=== PATIENT | female | born 1935 | race Caucasian/White ===

== ENCOUNTER 2017-03-26 16:25 | Observation (INO) ==
[2017-03-26] MEDS ORDERED: *HR* FentaNYL (PF) 100 MCG/2 ML VIAL IVP ONE ×2 (16:36→17:41)
[2017-03-26] MEDS ORDERED: Ondansetron 4 MG/2 ML VIAL IVP ONE (16:36)
--- NOTE | 2017-03-26 16:41 | Emergency Department Note ---
Disposition Clinical Impression: Acute right ankle pain Closed left humeral fracture Qualifiers: Encounter type: initial encounter Humerus Location: shaft Fracture morphology: unspecified fracture morphology Qualified Code(s): S42.302A - Unspecified fracture of shaft of humerus, left arm, initial encounter for closed fracture Fall down steps Qualifiers: Encounter type: initial encounter Qualified Code(s): W10.8XXA - Fall (on) (from ) other stairs and steps, initial encounter Disposition: Admitted As Inpatient Condition: Undetermined Referrals: Garcia Thakkar Jr, MD [Primary Care Provider] - Forms: ED Satisfaction Letter Time of Disposition: 18:21 Trauma HPI - General Chief Complaint: ED Extremity Injury, Upper Stated Complaint: Fall, shoulder neck pain Time Seen by Provider: 03/26/17 16:27 Source: patient, EMS Mode of arrival: EMS Limitations: no limitations Nursing Notes Reviewed: Yes Vital Signs Reviewed: Yes - History of Present Illness HPI Narrative: 81-year-old female who was climbing steps fell down 4 steps without loss of consciousness. The patient arrives to the emergency department with a obvious deformity to her left humerus. The patient has a history of shoulder replacement in the left shoulder. The patient is admitting to multisystem complaints including headache, neck pain, back pain, left upper extremity pain, left knee pain, pelvic pain, right ankle pain. The patient is complaining of pain only primarily in her left upper extremity. The patient does admit to blood thinners but is unsure what type. Patient denies any other complaints at this time. She is not tachypneic, not tachycardic, no obvious distress with the exception of pain. The patient arrived to the emergency department in a c- collar. Her left upper extremity was propped up but not immobilized by EMS. Upon arrival to the emergency department EMS notified of the patient received IV fluids, 4 mg of IV Zofran, 10 mg of IV morphine. Patient still complaining of left upper extremity pain. 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 Loss of Consciousness: no Location of injury: neck, abdomen, pelvis Location - Extremities: Left: arm, hip, knee, Right: ankle Pain Severity: severe Pain Scale: 9 Context: fall Associated symptoms: Reports: back pain Treatments prior to arrival: IV, cervical collar - Related Data Home Medications Medication Instructions Recorded Confirmed Aspirin [Adult Low Dose Aspirin EC] 81 mg PO QPM 05/12/15 12/01/16 Clopidogrel [Plavix] 75 mg PO DAILY 05/12/15 12/01/16 Metoprolol [Lopressor] 25 mg PO BID 05/12/15 12/01/16 Nitroglycerin [Nitrostat] 0.4 mg SL Q5M PRN 05/12/15 12/01/16 Simvastatin [Zocor] 40 mg PO QPM 05/12/15 12/01/16 amLODIPine [Norvasc] 2.5 mg PO QAM 05/12/15 12/01/16 Levothyroxine [Synthroid] 50 mcg PO QAM 08/28/15 12/01/16 Furosemide [Lasix] 20 mg PO DAILY 05/06/16 12/01/16 Isosorbide MONOnitrate [Isosorbide 120 mg PO DAILY 05/06/16 12/01/16 Mononitrate ER] Amitriptyline [Elavil] 12.5 - 25 mg PO HS 12/01/16 12/01/16 Omeprazole [PriLOSEC] 20 mg PO DAILY 12/01/16 12/01/16 Oxycodone HCl/Acetaminophen 1 tab PO Q4-6H PRN 12/01/16 12/01/16 [Percocet 7.5-325 mg Tablet] Previous Rx's Medication Instructions Recorded Oxycodone HCl/Acetaminophen 1 each PO Q6HR #20 tablet 12/01/16 [Percocet 7.5-325 mg Tablet] Amoxicillin/Clavulanate [Augmentin] 875 mg PO BID #14 tablet 12/07/16 Allergies Allergy/AdvReac Type Severity Reaction Status Date / Time esomeprazole [From Nexium] AdvReac Chest Pain Verified 05/06/16 15:53 Hydromorphone [From Dilaudid] AdvReac Vomiting Verified 05/06/16 15:53 iron AdvReac Vomiting Verified 05/06/16 15:53 All systems ED: reviewed and negative except as stated. Constitutional: Denies: fever, chills, weakness Eyes: Denies: eye pain, vision change ENT ED: Denies: dental pain, congestion, dysphagia Cardiovascular: Denies: chest pain, dyspnea on exertion, orthopnea Respiratory: Denies: cough, dyspnea, wheezes Gastrointestinal: Reports: abdominal pain. Denies: nausea, vomiting, diarrhea, constipation Genitourinary: Denies: dysuria Musculoskeletal: Reports: back pain, neck pain, arthralgia. Denies: myalgia Integumentary: Denies: rash Neurological: Reports: numbness (Left upper extremity). Denies: headache, weakness, paresthesias, confusion Past Medical History - Past Medical History Attestation: Yes The following information was validated with the patient. 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 - Social History Smoking Status: Never smoker Smokeless Tobacco Status: No Alcohol use: Reports: none Drug use: Reports: none Physical Exam - General Limitations: no limitations General appearance: alert, in distress (Due to pain) - Head Head exam: atraumatic, normocephalic, normal inspection - Eye Eye exam: Present: normal appearance, PERRL, EOMI - ENT ENT exam: normal exam, normal oropharynx, mucous membranes moist - Neck Neck exam: Present: normal inspection, trachea midline, tenderness (Posterior cervical spine) - Chest Chest inspection: Present: normal inspection, symmetric chest wall rise - Respiratory Respiratory exam: Present: normal lung sounds bilaterally - Cardiovascular Cardiovascular exam: Present: regular rate, normal rhythm, normal heart sounds - Abdominal Exam Abdominal exam: Present: soft, tenderness (Diffuse, mild). Absent: distention, guarding, rebound, rigidity Abdominal tenderness: Present: diffuse, mild - Extremities Exam Extremities exam: Present: other (The patient has an obvious left upper extremity deformity with hematoma. This is located in the left humerus. The patient has palpable pulses to the left upper extremity but decreased sensation of left upper extremity when compared to the right. The patient has tenderness to the left hip without obvious deformity, left knee without obvious deformity and right ankle without obvious deformity. The patient is neurovascularly intact throughout all extremities at this time.) - Back Exam Back exam: Present: tenderness - Neurological Exam Neurological exam: Present: alert, oriented X3 Course - Consultations Consultation #1: I spoke with Dr. Rawls in orthopedics surgery who agreed that he will be consulted the patient. We did discussion as though the patient's pain is not well controlled enough for the patient to be discharged home at this time. He agreed and stated that he would consult the patient in to admit the patient to the hospitalist service. We will admit the patient to the hospitalist service at this time. Time: 18:05 Vital Signs Temperature 98.2 F 03/26/17 16:27 Pulse Rate 86 03/26/17 16:27 Respiratory Rate 18 03/26/17 16:27 Blood Pressure 184/96 03/26/17 16:27 O2 Sat by Pulse Oximetry 98 03/26/17 16:27 Temperature 98.2 F 03/26/17 16:27 Pulse Rate 75 03/26/17 18:10 Respiratory Rate 18 03/26/17 18:10 Blood Pressure 172/76 03/26/17 18:10 O2 Sat by Pulse Oximetry 99 03/26/17 18:10 Oxygen Delivery Oxygen Delivery Nasal Cannula Trauma - MDM Narrative Medical decision making narrative: Patient's workup here in the emergency department demonstrates only a left humerus fracture. The patient's CT scans demonstrated no other acute findings. The patient's x-ray of the right ankle does demonstrate some soft tissue swelling but no other acute osseous fracture or injury. We will admit the patient to the hospitalist service per request from Dr. Rawls orthopedic surgery. A consult was officially placed. The patient was accepted by the hospitalist, Dr. Parker. - Medical Records Medical records reviewed: Yes I reviewed the patient's medical records. - Radiology Data Radiology results reviewed: Yes I reviewed the patient's radiology results.
--- NOTE | 2017-03-26 16:58 | Emergency Department Note ---
START Narrative - START START: I examined this patient and my medical decision-making was reviewed with the Resident Physician. I agree with the documented findings, disposition and treatment plan as described except to the extent set forth below. 81 yo F who fell today injuring left shoulder with + left shoulder deformity. on blood thinners having diffuse pain in legs, abdomen. will do ct head, neck, abd pelvis and CTLS spine plain films of left shoulder, cxr, knee films if any significant pathology, then will need to be tx'd to [facility]. pt has doppler pulses on left UE. critical care time spent 35 min spent in medical management of trauma, left arm deformity.
[2017-03-26 18:25] LABS: Basophils % 0.3 %; Eosinophils # 0.1 K/mcL (0.0-0.6); Hematocrit 36.1 % (35.3-44.9); Hemoglobin 11.4 g/dL (11.5-15.4); Immature Granulocytes % 0.5 % (0-4); Lymphocytes # 0.7 K/mcL (0.6-4.6); Lymphocytes % 11.6 %; Mean Corpuscular HGB Conc 31.6 g/dL (31.6-35.5); Mean Corpuscular Hemoglobin 27.8 pg (28.0-33.3); Mean Platelet Volume 8.6 fL (9.4-12.4); Monocytes # 0.4 K/mcL (0.0-1.3); Monocytes % 6.2 %; Neutrophils # 5.1 K/mcL (1.6-8.9); Platelet Count 207 K/mcL (140-400); Red Cell Distribution Width 13.3 % (11.5-14.5); Segmented Neutrophils % 80.4 %
[2017-03-26 18:38] LABS: Calcium 8.8 mg/dL (8.6-10.8); Potassium 3.8 mEq/L (3.5-4.5)
[2017-03-26] MEDS ORDERED: Acetaminophen 325 MG TABLET PO PRN (21:06)
[2017-03-26] MEDS ORDERED: Naloxone 0.4 MG/ML INJ IVP PRN (21:06)
[2017-03-26] MEDS ORDERED: Ondansetron 4 MG/2 ML VIAL IVP PRN (21:06)
--- NOTE | 2017-03-26 21:22 | Internal Med History&Physical ---
Date of Encounter: 03/26/17 Time of Encounter: 19:30 Assessment and Plan (1) Closed left humeral fracture Current visit: Yes Status: Acute Acute fracture of the left humerus today sustained when pt. fell from the top of four steps. XR of the humerus today shows angulated fracture of the left humeral shaft with slight overlap of fracture fragments. Orthopedic surgery consultation. Stair-step pain medications for pain management. Patient kept nothing by mouth at midnight for possible surgical intervention in the a.m. Falls/safety precautions. PT/OT consults ordered for post-discharge planning. Pt. is at high risk for further injury and morbidity based on current fracture, sx, hx of falls, and risk factors. Inpatient. Qualifiers: Encounter type: initial encounter Humerus Location: shaft Fracture morphology: unspecified fracture morphology Qualified Code(s): S42.302A - Unspecified fracture of shaft of humerus, left arm, initial encounter for closed fracture (2) Falls Current visit: Yes Status: Acute Hx of falls. Falls/safety precautions. Qualifiers: Encounter type: initial encounter Qualified Code(s): W19.XXXA - Unspecified fall, initial encounter (3) CAD (coronary artery disease) Current visit: Yes Status: Chronic Hx of chronic CAD with previous [place] requiring Ensure Plus 10 stent placement 1. Tenuous cardiac telemetry. Will continue patient's Lopressor, Norvasc, isosorbide, Plavix, aspirin therapy, and Zocor. Qualifiers: Coronary Disease-Associated Artery/Lesion type: [place] artery [place] vs. transplanted heart: [place] heart Associated angina: without angina Qualified Code(s): I25.10 - Atherosclerotic heart disease of [place] coronary artery without angina pectoris (4) HTN (hypertension) Current visit: Yes Status: Chronic Hx of chronic HTN. Monitor pt. and VS. continue patient's Lopressor, Norvasc, and isosorbide. Qualifiers: Hypertension type: essential hypertension Qualified Code(s): I10 - Essential (primary) hypertension (5) HLD (hyperlipidemia) Current visit: Yes Status: Chronic Hx of chronic HLD. Lipid panel in a.m. labs. Continue Zocor. Qualifiers: Hyperlipidemia type: pure hypercholesterolemia Qualified Code(s): E78.00 - Pure hypercholesterolemia, unspecified; E78.0 - Pure hypercholesterolemia (6) Hypothyroidism Current visit: Yes Status: Chronic Hx of chronic hypothyroidism. Continue patient's Synthroid. Qualifiers: Hypothyroidism type: acquired Qualified Code(s): E03.9 - Hypothyroidism, unspecified (7) Abdominal pain Current visit: Yes Status: Chronic Hx of chronic abdominal pain r/t GERD. IVP Zofran Q8 PRN for nausea. IVP Protonix 40 mg daily. Qualifiers: Abdominal location: generalized Qualified Code(s): R10.84 - Generalized abdominal pain (8) DVT prophylaxis Current visit: Yes Status: Acute Bilateral SCDs on LEs for DVT prophylaxis d/t patient's reports of black stool today. Fecal hemoccult ordered. Monitor pt. for signs of bleeding. Internal Medicine - H&P: HPI Chief complaint: Fracture of the left humerus Admitted From: Emergency Dept Plans for Post Hospital Care: Home History of present illness: Ms. Hall is a 81 year old female with medical history of nocturnal seizures , GERD, hypertension, hyperlipidemia, hiatal hernia, and [place] requiring angioplasty and stent placement 1 presents from the ED with chief complaint of humerus fracture of the left arm today. Pt. states she fell from the top of four steps when she lost her balance and did not lose consciousness or hit her head. Patient reports history of shoulder placement of left shoulder. Patient also hurt multiple portions on her body during the fall but imaging shows no other fractures. Pt. states she had black stool this morning and reports taking Pepto Bismol last night. Denies previous blood in stool. Patient reports pain in left upper extremity and abdominal pain r/t GERD but denies chest pain, palpitations, recent illness, fever, chills, nausea, vomiting, diarrhea, constipation, abdominal pain, changes in vision, numbness, tingling, headache, dizziness, lightheadedness, pre-syncope, or syncope. 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), sinus surgery, other - Social History Smoking Status: Never smoker Smokeless Tobacco Status: No Alcohol use: none Drug use: none Current living situation: Home Activity Level: Independent ambulation Recent Out of Country Travel Within the Last 8 Weeks: No Exposure or Possible Exposure to Illness During Travel: No - Family History Father Adopted: [place]: Lazarus Dent Age: 70 Race: Family Member Ethnicity: Non- Living Status: Age at : 70 Cause of : Parkinson's disease Hx Family Neurologic Disorders: Yes (Parkinson's disease) Mother Adopted: [place]: Salome Penaloza Age: 72 Race: Family Member Ethnicity: Non- Living Status: Age at : 72 Cause of : Stroke Hx Family Cardiac Disorders: Yes (CAD, HTN, CVA, [place]) Brother Race: Family Member Ethnicity: Non- Living Status: Age at : 39 Cause of : [place] Hx Family Cardiac Disorders: Yes ([place], CVA) Sister Race: Family Member Ethnicity: Non- Living Status: Age at : 60 Cause of : CVA Hx Family Cardiac Disorders: Yes (CVA, CAD, HTN) Hx Family Genitourinary Disorders: Yes (CKD) Internal Medicine - H&P: Meds Aspirin [Adult Low Dose Aspirin EC] 81 mg PO QPM 05/12/15 [History] Clopidogrel [Plavix] 75 mg PO DAILY 05/12/15 [History] Metoprolol [Lopressor] 25 mg PO BID 05/12/15 [History] Nitroglycerin [Nitrostat] 0.4 mg SL Q5M PRN 05/12/15 [History] Simvastatin [Zocor] 40 mg PO QPM 05/12/15 [History] amLODIPine [Norvasc] 2.5 mg PO QAM 05/12/15 [History] Levothyroxine [Synthroid] 50 mcg PO QAM 08/28/15 [History] Furosemide [Lasix] 20 mg PO DAILY 05/06/16 [History] Isosorbide MONOnitrate [Isosorbide Mononitrate ER] 120 mg PO DAILY 05/06/16 [ History] Amitriptyline [Elavil] 12.5 - 25 mg PO HS 12/01/16 [History] Omeprazole [PriLOSEC] 20 mg PO DAILY 12/01/16 [History] Oxycodone HCl/Acetaminophen [Percocet 7.5-325 mg Tablet] 1 each PO Q6HR #20 tablet 12/01/16 [Rx] Oxycodone HCl/Acetaminophen [Percocet 7.5-325 mg Tablet] 1 tab PO Q4-6H PRN [History] Amoxicillin/Clavulanate [Augmentin] 875 mg PO BID #14 tablet 12/07/16 [Rx] 3 Allergy/AdvReac Type Severity Reaction Status Date / Time esomeprazole [From Nexium] AdvReac Chest Pain Verified 05/06/16 15:53 Hydromorphone [From Dilaudid] AdvReac Vomiting Verified 05/06/16 15:53 iron AdvReac Vomiting Verified 05/06/16 15:53 All Systems PM: A 10-system review of systems was performed and is negative for pertinent findings except as documented above in the HPI. - Constitutional Constitutional: as per HPI, falls, no chills, no fever(s), no night sweats - EENT Eyes: no change in vision, no discharge, no pain, no photophobia Ears: no ear discharge, no ear pain, no tinnitus Nose, mouth and throat: no dysphagia, no nasal discharge, no neck pain, no sore throat - Breasts Breasts: as per HPI - Cardiovascular Cardiovascular ROS IM: no chest pain, no diaphoresis, no dyspnea, no lightheadedness, no palpitations, no syncope - Respiratory Respiratory: no cough, no dyspnea, no wheezing, no excessive phlegm production - Gastrointestinal Gastrointestinal: as per HPI, abdominal pain, melena (Melena x1 today) - Genitourinary Genitourinary: no change in urinary stream, no dysuria, no flank pain, no hematuria Menstruation: as per HPI - Musculoskeletal Musculoskeletal ROS IM: no numbness, no tingling - Integumentary Integumentary IM: no rash, no unusual bruising - Neurological Neurological ROS: no confusion, no convulsions, no focal weakness, no numbness, no tingling, no tremor(s) - Psychiatric Psychiatric: as per HPI - Endocrine Endocrine IM: as per HPI - Hematologic/Lymphatic Hematologic/Lymphatic: no easy bruising - Allergic/Immunologic Allergic/Immunologic: as per HPI - Constitutional Vitals: Temp Pulse Resp BP Pulse Ox 97.4 F L 83 18 169/78 98 03/26/17 20:03 03/26/17 20:03 03/26/17 20:03 03/26/17 20:03 03/26/17 20:03 General appearance: Present: cooperative, A&O X 3, pleasant, obese, severe distress, answers questions appropriately - Head Head exam: Present: atraumatic, normal inspection, normocephalic - Eye Eye exam: Present: PERRL, conjuntiva pink, sclera anicteric Pupils: Present: PERRL - ENT ENT exam: Present: normal exam, normal external ear exam - Neck Neck exam general surgery: Present: normal inspection, supple, trachea midline. Absent: lymphadenopathy - Respiratory Respiratory exam: Present: CTAB. Absent: accessory muscle use, rales, rhonchi, wheezes - Cardiovascular Cardiovascular exam: Present: RRR, +S1, +S2. Absent: diastolic murmur, gallop, rubs, systolic murmur - GI/Abdominal GI/Abdominal exam: Present: normal bowel sounds, soft, no peritoneal signs. Absent: distended, tenderness - Rectal Rectal exam: Present: deferred - Additional comments: exam deferred. - Extremities Exam Extremities exam: Present: warm, radial pulses palpable and symmetrical. Absent : calf tenderness, cyanotic, pedal edema - Back Exam Back exam: Present: normal inspection - Neurological Exam Neurological exam: Present: CN II-XII intact, oriented X3, no focal deficits. Absent: pronater drift, facial droop, speech deficit - Psychiatric Psychiatric exam: Present: normal affect, normal mood - Skin Skin exam: Present: dry, intact Internal Med - H&P Results - Labs CBC & Chem 7: 03/26/17 18:18 03/26/17 18:18 - Diagnostic Studies Other Images Additional comments: Impressions Ankle X-Ray 03/26/17 16:34 IMPRESSION: Angulated fracture of the left humeral shaft with slight overlap of fracture fragments. D/ / Howard Austin MD / Howard Austin MD Interpreting Provider: Howard Austin MD Cervical Spine CT 03/26/17 16:34 IMPRESSION: No acute abnormality of the cervical spine. No acute intracranial abnormality. D/ / Sherron Gonzales Cha, MD / Sherron Gonzales Cha, MD Interpreting Provider: Sherron Gonzales Cha, MD Humerus X-Ray 03/26/17 16:34 IMPRESSION: Angulated fracture of the left humeral shaft with slight overlap of fracture fragments. D/ / Howard Austin MD / Howard Austin MD Interpreting Provider: Howard Austin MD Knee X-Ray 03/26/17 16:34 IMPRESSION: Angulated fracture of the left humeral shaft with slight overlap of fracture fragments. D/ / Howard Austin MD / Howard Austin MD Interpreting Provider: Howard Austin MD Lumbar Spine CT 03/26/17 16:34 IMPRESSION: 1. No acute osseous abnormality of the lumbar spine. 2. Multilevel mild spondylosis and [id number] facet arthrosis of the lumbar spine 3. Atherosclerotic disease D/ / Jose Manuel Harris MD / Jose Manuel Harris MD Interpreting Provider: Jose Manuel Harris MD Thoracic Spine CT 03/26/17 16:34 IMPRESSION: 1. No acute abnormality of the thoracic spine. 2. Atherosclerotic disease. D/ / Jose Manuel Harris MD / Jose Manuel Harris MD Interpreting Provider: Jose Manuel Harris MD CT scan - abdomen Additional comments: Impressions Abdomen/Pelvis CT 03/26/17 16:34 IMPRESSION: 1. No evidence of traumatic abdominal or pelvic visceral injury. 2. Colonic diverticulosis with no acute features. 3. Previous cholecystectomy and hysterectomy. D/ / 03/26/2017 17:44:59 Jordan Fofana MD / yen Interpreting Provider: Jordan Fofana MD CT scan - chest Additional comments: Impressions Chest CT 03/26/17 16:46 IMPRESSION: 1. No evidence of traumatic injury to the chest. No acute pulmonary findings. 2. Atherosclerotic changes in the aorta and coronary circulation. D/ / 03/26/2017 17:39:39 Jordan Fofana MD / yen Interpreting Provider: Jordan Fofana MD CT scan - head Additional comments: Impressions Head CT 03/26/17 16:34
[2017-03-26] MEDS: *HR* HYDROcodone/Acet 5/325 mg TABLET PO PRN (21:43)
[2017-03-26] MEDS: Pantoprazole 40 MG VIAL IVP SCH (21:43)
--- NOTE | 2017-03-26 23:02 | Event Note ---
Date of Encounter: 03/26/17 Time of Encounter: 22:00 Discussed with BANDAR and agree with assessment and plan Patient with left humerus closed fracture and orthopedic consulted
[2017-03-26] MEDS: *HR* Morphine 2 MG/ML SYRINGE IVP PRN (23:48)
[2017-03-27 05:44] LABS: Basophils % 0.2 %; Eosinophils # 0.1 K/mcL (0.0-0.6); Eosinophils % 1.5 %; Hematocrit 33.9 % (35.3-44.9); Hemoglobin 10.5 g/dL (11.5-15.4); Immature Granulocytes % 0.2 % (0-4); Lymphocytes # 0.8 K/mcL (0.6-4.6); Lymphocytes % 15.4 %; Mean Corpuscular Hemoglobin 27.6 pg (28.0-33.3); Mean Platelet Volume 8.7 fL (9.4-12.4); Monocytes # 0.4 K/mcL (0.0-1.3); Monocytes % 6.6 %; Neutrophils # 4.1 K/mcL (1.6-8.9); Platelet Count 190 K/mcL (140-400); Red Blood Count 3.81 M/mcL (3.82-4.97); Red Cell Distribution Width 13.2 % (11.5-14.5); Segmented Neutrophils % 76.1 %
[2017-03-27] MEDS: *HR* Morphine 2 MG/ML SYRINGE IVP PRN ×4 (05:48→23:05)
[2017-03-27 05:50] LABS: INR 1.1; Prothrombin Time 11.5 Seconds (9.4-12.1)
[2017-03-27 05:53] LABS: Activated Partial Thrombo Time 26.2 Seconds (26.0-36.0)
[2017-03-27 06:02] LABS: Potassium 4.1 mEq/L (3.5-4.5)
[2017-03-27 06:03] LABS: Albumin 3.1 g/dL (3.5-5.0); Albumin/Globulin Ratio 1.1 (1.1-2.2); Bilirubin,Total 0.4 mg/dL (0.2-1.2); Calcium 8.7 mg/dL (8.6-10.8); Globulin 2.9 g/dL (2.4-3.5); Magnesium 1.8 mg/dL (1.6-2.6)
--- NOTE | 2017-03-27 06:59 | Orthopedic Consult Note ---
Date of Encounter: 03/27/17 Time of Encounter: 06:58 History of Present Illness HPI: Ms. Hall is a 81 year old female Status post fall yesterday injuring her left arm. Patient complains of pain and decreased motion. Patient status post total shoulder replacement. Physical exam Left upper extremity Neurovascular intact Obvious discomfort with any motion X-rays show midshaft periprosthetic humerus fracture left recommendation for open reduction internal fixation when cleared medically. Patient's cardiac history recommend cardiac clearance. Patient will be placed in a sling for comfort. 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), sinus surgery, other - Social History Smoking Status: Never smoker Smokeless Tobacco Status: No Alcohol use: none Drug use: none - Family History Father Adopted: [place]: Lazarus Dent Age: 70 Race: Family Member Ethnicity: Non- Living Status: Age at : 70 Cause of : Parkinson's disease Hx Family Neurologic Disorders: Yes (Parkinson's disease) Brother Race: Family Member Ethnicity: Non- Living Status: Age at : 39 Cause of : [place] Hx Family Cardiac Disorders: Yes ([place], CVA) Sister Race: Family Member Ethnicity: Non- Living Status: Age at : 60 Cause of : CVA Hx Family Cardiac Disorders: Yes (CVA, CAD, HTN) Hx Family Genitourinary Disorders: Yes (CKD) Mother Adopted: [place]: Salome Penaloza Age: 72 Race: Family Member Ethnicity: Non- Living Status: Age at : 72 Cause of : Stroke Hx Family Cardiac Disorders: Yes (CAD, HTN, CVA, [place]) Hx Family Endocrine Disorder: Yes (diabetes) Medications and Allergies Aspirin [Adult Low Dose Aspirin EC] 81 mg PO QPM 05/12/15 [History] Clopidogrel [Plavix] 75 mg PO DAILY 05/12/15 [History] Metoprolol [Lopressor] 25 mg PO BID 12/28/15 [History] Nitroglycerin [Nitrostat] 0.4 mg SL Q5M PRN 05/12/15 [History] Simvastatin [Zocor] 40 mg PO QPM 05/12/15 [History] amLODIPine [Norvasc] 2.5 mg PO QAM 05/12/15 [History] Levothyroxine [Synthroid] 50 mcg PO QAM 08/28/15 [History] Furosemide [Lasix] 20 mg PO DAILY 05/06/16 [History] Isosorbide MONOnitrate [Isosorbide Mononitrate ER] 120 mg PO DAILY 05/06/16 [ History] Amitriptyline [Elavil] 12.5 - 25 mg PO HS 12/01/16 [History] Omeprazole [PriLOSEC] 20 mg PO DAILY 12/01/16 [History] Oxycodone HCl/Acetaminophen [Percocet 7.5-325 mg Tablet] 1 each PO Q6HR #20 tablet 12/01/16 [Rx] Oxycodone HCl/Acetaminophen [Percocet 7.5-325 mg Tablet] 1 tab PO Q4-6H PRN [History] Amoxicillin/Clavulanate [Augmentin] 875 mg PO BID #14 tablet 12/07/16 [Rx] 3 Allergy/AdvReac Type Severity Reaction Status Date / Time esomeprazole [From Nexium] AdvReac Chest Pain Verified 05/06/16 15:53 Hydromorphone [From Dilaudid] AdvReac Vomiting Verified 05/06/16 15:53 iron AdvReac Vomiting Verified 05/06/16 15:53 All Systems Reviewed: A 10-system review of systems was performed and is negative for pertinent findings except as documented above in the HPI. Physical Exam - Constitutional Vitals: Temp Pulse Resp BP Pulse Ox 97.6 F 78 18 134/76 100 03/27/17 06:52 03/27/17 06:52 03/27/17 06:52 03/27/17 06:52 03/27/17 06:52 Results - Labs Result Diagrams: 03/27/17 05:25 03/27/17 05:25 Labs: Abnormal lab results RBC 3.81 M/mcL (3.82-4.97) L 03/27/17 05:25 Hgb 10.5 g/dL (11.5-15.4) L 03/27/17 05:25 Hct 33.9 % (35.3-44.9) L 03/27/17 05:25 MCH 27.6 pg (28.0-33.3) L 03/27/17 05:25 MCHC 31.0 g/dL (31.6-35.5) L 03/27/17 05:25 MPV 8.7 fL (9.4-12.4) L 03/27/17 05:25 Creatinine 1.25 mg/dL (0.57-1.11) H 03/27/17 05:25 Est GFR ( Amer) 50 (> 60) L 03/27/17 05:25 Est GFR (Non-Af Amer) 41 (> 60) L 03/27/17 05:25 Glucose 101 mg/dL (70-99) H 03/27/17 05:25 AST 49 Units/L (5-34) H 03/27/17 05:25 Albumin 3.1 g/dL (3.5-5.0) L 03/27/17 05:25 Cholesterol 214 mg/dL (< 200) H 03/27/17 05:25 LDL Cholesterol, Calc 141 mg/dL (0-99) H 03/27/17 05:25 H & H 03/27/17 Range/Units 05:25 Hgb 10.5 L (11.5-15.4) g/dL Hct 33.9 L (35.3-44.9) % All other labs normal. Consult Discharge Plan - Plan Referrals: Garcia Thakkar Jr, MD [Primary Care Provider] -
[2017-03-27] MEDS: Pantoprazole 40 MG VIAL IVP SCH (08:09)
[2017-03-27] MEDS: *HR* HYDROcodone/Acet 5/325 mg TABLET PO PRN ×2 (08:12→19:35)
--- NOTE | 2017-03-27 08:58 | Cardiology Consult Note ---
<Santana Elizondo - Last Filed: 03/27/17 11:55> Date of Encounter: 03/27/17 Time of Encounter: 09:00 Assessment and Plan (1) Fall down steps Current Visit: Yes Status: Acute Per Cardiology: S/p Fall-- appears to be mechanical fall. Will place on tele to monitor for any events . Head CT 03/26/17 16:34 IMPRESSION: No acute abnormality of the cervical spine. No acute intracranial abnormality. Qualifiers: Encounter type: initial encounter Qualified Code(s): W10.8XXA - Fall (on) ( from) other stairs and steps, initial encounter (2) Closed left humeral fracture Current Visit: Yes Status: Acute Per Cardiology: Humerus X-Ray 03/26/17 16:34 IMPRESSION: Angulated fracture of the left humeral shaft with slight overlap of fracture fragments. Seen by ortho with pending surgery. Management per ortho and primary service. Qualifiers: Encounter type: initial encounter Humerus Location: shaft Fracture morphology: unspecified fracture morphology Qualified Code(s): S42.302A - Unspecified fracture of shaft of humerus, left arm, initial encounter for closed fracture (3) CAD (coronary artery disease) Current Visit: Yes Status: Chronic Per Cardiology: Hx of CAD. Last seen by Dr. Shields 06/2016. Last [facility] 08/2014: Patient had successful PTCA/Drug-Eluting Stent placement in the mid LAD. Lesion Findings/Interventions * Left Main Coronary Artery The LMCA is angiographically free of disease. * Left Anterior Descending There is a 99% stenosis in the Mid LAD. The lesion has no thrombus present. An intervention was performed on the Mid LAD with a final stenosis of 0%. There were no lesion complications. * Circumflex The Circumflex is angiographically free of disease. The 1st Marginal is angiographically free of disease. * Ramus There is a 80% stenosis in the proximal Ramus. * Right Coronary Artery There is a 20% stenosis in the Proximal RCA. Last echo 12/2015: EF 60%, mild AR, NSWMA. Negative nuclear stress test April 2015 and April 2016. Will resume home cardiac meds-- statin, BB, and long acting nitrate. Will hold asa and plavix for now (no recent stenting in past 1 year) recommend resume when ok with ortho. Recommend resuming other home meds as able. Qualifiers: Coronary Disease-Associated Artery/Lesion type: [place] artery [place] vs. transplanted heart: [place] heart Associated angina: without angina Qualified Code(s): I25.10 - Atherosclerotic heart disease of [place] coronary artery without angina pectoris (4) Preop cardiovascular exam Current Visit: Yes Status: Acute Per Cardiology: Will check ECG, place on tele, check echo. Discussed with Dr. Fernandez, anticipate can be cleared from a cardiac standpoint as moderate risk pending echo results. Discussion w patient/family: The assessment and plan as outlined above was discussed with the patient who expressed understanding and agreement. All questions were answered. Thank you for involving us in the care of your patient. Please call with any questions. History of Present Illness Consult date: 03/27/17 Requesting physician: Jacek Rawls Consult reason: Preop Eval, S/p fall Chief complaint: S/p Fall and Left shoulder/ar, pain History of present illness: Ms. Hall is a 81 year old female with a relevant past medical history of CAD , hypertension, hyperlipidemia, GERD, and CK D stage IIIB. Cardiology consult for preoperative evaluation prior to pending surgery status post fall. Patient reports coming home from her 's yesterday she was climbing steps and tripped and fell and landed on her left shoulder. She reports previous left shoulder surgery. She denied any dizziness, lightheadedness, blurred vision, or precipitating events. Prior to this episode she denies any exertional chest pain. She denies any change in baseline fatigue or mild dyspnea on exertion. Denies any current CP. Reports L shoulder/arm soreness from fall. Past Med Surg Social Fam HX - Past Medical History Attestation: Yes The following information was validated with the patient. Source: patient, old records reviewed Medical history: GERD, hyperlipidemia, hypertension, other (Hiatal hernia, Nocturnal seizures) Psychiatric history: no psych history - Past Surgical History Surgical History: angioplasty/stent (x1), appendectomy, cataract (Bilateral), cholecystectomy, hysterectomy (Total), orthopedic, other (Bilateral shoulders, bilateral carpal tunnel, cervical fusion, removal of benign tumor on spine), sinus surgery, other - Social History Smoking Status: Never smoker Smokeless Tobacco Status: No Alcohol use: none Drug use: none - Family History Father Adopted: [place]: Lazarus Dent Age: 70 Race: Family Member Ethnicity: Non- Living Status: Age at : 70 Cause of : Parkinson's disease Hx Family Neurologic Disorders: Yes (Parkinson's disease) Brother Race: Family Member Ethnicity: Non- Living Status: Age at : 39 Cause of : [place] Hx Family Cardiac Disorders: Yes ([place], CVA) Sister Race: Family Member Ethnicity: Non- Living Status: Age at : 60 Cause of : CVA Hx Family Cardiac Disorders: Yes (CVA, CAD, HTN) Hx Family Genitourinary Disorders: Yes (CKD) Mother Adopted: [place]: Salome Penaloza Age: 72 Race: Family Member Ethnicity: Non- Living Status: Age at : 72 Cause of : Stroke Hx Family Cardiac Disorders: Yes (CAD, HTN, CVA, [place]) Hx Family Endocrine Disorder: Yes (diabetes) Medications and Allergies Aspirin [Adult Low Dose Aspirin EC] 81 mg PO QPM 05/12/15 [History] Clopidogrel [Plavix] 75 mg PO DAILY 05/12/15 [History] Metoprolol [Lopressor] 25 mg PO BID 05/12/15 [History] Nitroglycerin [Nitrostat] 0.4 mg SL Q5M PRN 05/12/15 [History] Simvastatin [Zocor] 40 mg PO QPM 05/12/15 [History] amLODIPine [Norvasc] 2.5 mg PO QAM 05/12/15 [History] Levothyroxine [Synthroid] 50 mcg PO QAM 08/28/15 [History] Furosemide [Lasix] 20 mg PO DAILY PRN 05/06/16 [History] Isosorbide MONOnitrate [Isosorbide Mononitrate ER] 120 mg PO DAILY 05/06/16 [ History] Omeprazole [PriLOSEC] 20 mg PO DAILY 12/01/16 [History] Oxycodone HCl/Acetaminophen [Percocet 7.5-325 mg Tablet] 1 tab PO Q4-6H PRN [History] Fluorometholone [Fluorometholone] 1 drop BOTH EYES QID 03/27/17 [History] 3 Allergy/AdvReac Type Severity Reaction Status Date / Time esomeprazole [From Nexium] AdvReac Chest Pain Verified 05/06/16 15:53 Hydromorphone [From Dilaudid] AdvReac Vomiting Verified 05/06/16 15:53 iron AdvReac Vomiting Verified 05/06/16 15:53 All Systems Review: A 10-system review of systems was performed and is negative for pertinent findings except as documented above in the HPI. - Constitutional Constitutional: fatigue - Cardiovascular Cardiovascular: as per HPI, dyspnea on exertion Physical Examination Vital Signs, Last 4 Hours Temp Pulse Resp BP Pulse Ox 03/27/17 06:52 97.6 F 78 18 134/76 100 General: Conversant, No Apparent Distress HEENT: Atraumatic, Normocephaly, Mucus Membranes Moist Neck: No JVD, Normal carotid pulses Cardiac: Reg Rate and Rhythm, Normal S1 and S2, No Murmur Lungs: Normal Breath Sounds, No Wheeze, Rales, Rhonchi Neuro: Alert and responsive, No focal deficits noted Abdomen: Soft, Non-Tender Skin: No rashes noted on visualized skin Musculoskeletal: Other (Left upper arm ecchymosis, in a sling) Extremities: No Clubbing, No Cyanosis, No Edema, Normal Pulses Results 03/27/17 05:25 03/27/17 05:25 Lab Results Laboratory Tests 03/27/17 03/27/17 03/27/17 05:25 05:25 05:25 INR 1.1 Creatinine 1.25 H Est GFR (Non-Af Amer) 41 L Hemoglobin A1c 5.0 Magnesium 1.8 AST 49 H ALT 32 LDL Cholesterol, Calc 141 H ITS Impressions Abdomen/Pelvis CT 03/26/17 16:34 IMPRESSION: 1. No evidence of traumatic abdominal or pelvic visceral injury. 2. Colonic diverticulosis with no acute features. 3. Previous cholecystectomy and hysterectomy. D/ : / 03/26/2017 17:44:59 Jordan Fofana MD / yen Interpreting Provider: Jordan Fofana MD Ankle X-Ray 03/26/17 16:34 IMPRESSION: Angulated fracture of the left humeral shaft with slight overlap of fracture fragments. D/ / Howard Austin MD / Howard Austin MD Interpreting Provider: Howard Austin MD Cervical Spine CT 03/26/17 16:34 IMPRESSION: No acute abnormality of the cervical spine. No acute intracranial abnormality. D/ / Sherron Gonzales Cha, MD / Sherron Gonzales Cha, MD Interpreting Provider: Sherron Gonzales Cha, MD Head CT 03/26/17 16:34 IMPRESSION: No acute abnormality of the cervical spine. No acute intracranial abnormality. D/ / Sherron Gonzales Cha, MD / Sherron Gonzales Cha, MD Interpreting Provider: Sherron Gonzales Cha, MD Humerus X-Ray 03/26/17 16:34 IMPRESSION: Angulated fracture of the left humeral shaft with slight overlap of fracture fragments. D/ / Howard Austin MD / Howard Austin MD Interpreting Provider: Howard Austin MD Knee X-Ray 03/26/17 16:34 IMPRESSION: Angulated fracture of the left humeral shaft with slight overlap of fracture fragments. D/ / Howard Austin MD / Howard Austin MD Interpreting Provider: Howard Austin MD Lumbar Spine CT 03/26/17 16:34 IMPRESSION: 1. No acute osseous abnormality of the lumbar spine. 2. Multilevel mild spondylosis and [id number] facet arthrosis of the lumbar spine 3. Atherosclerotic disease D/ / Jose Manuel Harris MD / Jose Manuel Harris MD Interpreting Provider: Jose Manuel Harris MD Thoracic Spine CT 03/26/17 16:34 IMPRESSION: 1. No acute abnormality of the thoracic spine. 2. Atherosclerotic disease. D/ / Jose Manuel Harris MD / Jose Manuel Harris MD Interpreting Provider: Jose Manuel Harris MD Chest CT 03/26/17 16:46 IMPRESSION: 1. No evidence of traumatic injury to the chest. No acute pulmonary findings. 2. Atherosclerotic changes in the aorta and coronary circulation. D/ / 03/26/2017 17:39:39 Jordan Fofana MD / yen Interpreting Provider: Jordan Fofana MD ECHO 12/2015: Impressions: LVEF 60%. Normal left ventricular size and systolic function. There is evidence of mild diastolic dysfunction of the left ventricle. Normal right ventricular size and function. Mild aortic regurgitation. Estimated RVSP was 20 mmHg. No pulmonary hypertension. The IVC is not dilated. Left Ventricular Wall Motion: Rest Echo Findings All wall segments showed normal motion. - Imaging and Cardiology Stress Test: report reviewed Echo: report reviewed - EKG Interpretation EKG results cardiology: other (ECG pending) Consult Discharge Plan - Plan Referrals: Garcia Thakkar Jr, MD [Primary Care Provider] - <Casey Fernandez - Last Filed: 03/27/17 22:25> Date of Encounter: 03/27/17 - Attending Attestation I have personally performed a face to face evaluation on this patient. I have reviewed and agree with the care plan. History and Exam by me shows: Pt complains of severe 10/10 pain in left shoulder, more severe with any movemment of left arm following a mechanical fall 03/26/2017. She has undergone evaluation and orthopedic consultation for Left humoral fracture, with anticpated surgical intervention planned for 03/28/2017. We are asked to evaluate pt for cardiovascular risk stratification prior to surgical intervention. She report left shoulder pain is fairly well controlled at present with shoulder imobilzer and pain medications. 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 She reports has been asymptomatic from cardiovascular perspective following PCI with FRANCK mid LAD 08/2014, She has subsequently undergone stress imaging in 2015 which did not show inducible ischemia. IMP/Plan 1. Stable Class ! anigna post PCI with FRANCK LAD 08/2014, 2. Severe single vessel CAD - LAD, with percutaneous revascularization 3. left humerus fracture with anticipated surgical intervention planned, pt is at moderate cardiovascular risk for planned procedure. 4. Benign hypertension , controlled on current medicationsl. will follow with you perioperatively. Assessment and Plan Discussion w patient/family: The assessment and plan as outlined above was discussed with the patient and/or family members who expressed understanding and agreement. All questions were answered. Thank you for involving us in the care of your patient. Please call with any questions. History of Present Illness History of present illness: Ms. Hall is a 81 year old female All Systems Review: A 10-system review of systems was performed and is negative for pertinent findings except as documented above in the HPI. Physical Examination Vital Signs, Last 4 Hours Temp Pulse Resp BP Pulse Ox 03/27/17 20:10 96 03/27/17 19:00 98.3 F 87 15 109/67 96 Results 03/27/17 05:25 03/27/17 05:25 Lab Results 03/27/17 03/27/17 03/27/17 05:25 05:25 05:25 WBC 5.3 Hgb 10.5 L Hct 33.9 L Plt Count 190 INR 1.1 APTT 26.2 Sodium 140 Potassium 4.1 Chloride 108 Carbon Dioxide 24 BUN 16 Creatinine 1.25 H Glucose 101 H Calcium 8.7 Magnesium 1.8 Total Bilirubin 0.4 AST 49 H ALT 32 Alkaline Phosphatase 116
[2017-03-27] MEDS: Isosorbide MONOnitrate (24 HR) 30 MG TAB.ER.24H PO SCH (12:25)
--- NOTE | 2017-03-27 13:49 | Internal Med Progress Note ---
Date of Encounter: 03/27/17 Time of Encounter: 11:40 - Assessment and plan (1) Closed left humeral fracture Current Visit: Yes Status: Acute Assessment and plan: Acute left closed mid humeral shaft fracture - secondary to mechanical fall Continue [place] PRN, IV Morphine PRN, DVT prophylaxis Orthopedics consult - scheduled for surgery tomorrow CT head - no acute intracranial abnormality CT cervical spine - no acute abnormality CT abdomen and pelvis - no evidence of traumatic abdominal injury, colonic diverticulosis X-rays - no fracture of left knee, severe soft tissue swelling over right ankle , fracture of the mid humeral shaft on the left side CT chest - no evidence of traumatic injury, no acute pulmonary findings Lumbar and thoracic spine CT - no acute abnormality Cardiology consultation for clearance - moderate risk, cleared for surgery Echocardiogram - pending Cardiac telemetry, labs in a.m., monitor closely Qualifiers: Encounter type: initial encounter Humerus Location: shaft Fracture morphology: unspecified fracture morphology Qualified Code(s): S42.302A - Unspecified fracture of shaft of humerus, left arm, initial encounter for closed fracture (2) Fall down steps Current Visit: Yes Status: Acute Assessment and plan: Patient apparently has a history of recurrent falls - unclear etiology, patient states falls are all mechanical Continue fall precautions Qualifiers: Encounter type: initial encounter Qualified Code(s): W10.8XXA - Fall (on) ( from) other stairs and steps, initial encounter (3) HLD (hyperlipidemia) Current Visit: Yes Status: Chronic Assessment and plan: Continue home dose of Zocor Qualifiers: Hyperlipidemia type: pure hypercholesterolemia Qualified Code(s): E78.00 - Pure hypercholesterolemia, unspecified; E78.0 - Pure hypercholesterolemia (4) Essential hypertension Current Visit: Yes Status: Chronic Assessment and plan: Essential hypertension, controlled, monitor Continue home dose of Lopressor, Norvasc (5) CAD (coronary artery disease) Current Visit: Yes Status: Chronic Assessment and plan: Coronary artery disease status post stent - stable Start regular home dose of Aspirin, Plavix, Zocor, Lopressor after surgery Qualifiers: Coronary Disease-Associated Artery/Lesion type: [place] artery [place] vs. transplanted heart: [place] heart Associated angina: without angina Qualified Code(s): I25.10 - Atherosclerotic heart disease of [place] coronary artery without angina pectoris (6) CKD (chronic kidney disease) stage 3, GFR 30-59 ml/min Current Visit: Yes Status: Chronic Assessment and plan: Chronic kidney disease stage III, stable - creatinine and GFR baseline Repeat labs in a.m., monitor closely (7) DVT prophylaxis Current Visit: Yes Status: Acute Assessment and plan: SCDs, subcutaneous heparin Fecal Hemoccult pending, patient reported dark stool on admission - Time Spent With Patient 25 - 35 minutes - Subjective Interval history: Examined this morning. Patient is awake and alert. Denies chest pain or shortness of breath. No fever. Hemodynamically stable. Complains of pain and left arm, improves with pain medication. No other acute events or complaints. Admitted for closed left humeral fracture after a mechanical fall. Surgery scheduled for tomorrow. - Constitutional Vitals: Temp Pulse Resp BP Pulse Ox 97.9 F 79 16 128/72 99 03/27/17 11:49 03/27/17 11:49 03/27/17 11:49 03/27/17 11:49 03/27/17 11:49 General appearance: Present: cooperative, A&O X 3, pleasant, no acute distress, answers questions appropriately Exam: Generalized weakness - Head Head exam: Present: atraumatic - Eye Eye exam: Present: EOMI - ENT ENT exam: Present: mucous membranes dry - Respiratory Respiratory exam: Present: decreased breath sounds (Slightly decreased in both bases, otherwise clear to auscultation). Absent: accessory muscle use, rales, respiratory distress, rhonchi, wheezes, tachypnea - Cardiovascular Cardiovascular exam: Present: RRR, +S1, +S2 - GI/Abdominal GI/Abdominal exam: Present: soft. Absent: distended, firm, guarding, tenderness - Extremities Exam Extremities exam: Present: radial pulses palpable and symmetrical. Absent: calf tenderness, cyanotic, pedal edema Additional comments: Left arm in sling - Neurological Exam Neurological exam: Present: alert, oriented X3, no focal deficits. Absent: facial droop, speech deficit Internal Medicine: Result - Labs CBC & Chem 7: 03/27/17 05:25 03/27/17 05:25 Labs: Short CBC 03/27/17 Range/Units 05:25 WBC 5.3 (4.3-11.1) K/mcL Hgb 10.5 L (11.5-15.4) g/dL Hct 33.9 L (35.3-44.9) % Plt Count 190 (140-400) K/mcL Neutrophils # 4.1 (1.6-8.9) K/mcL BMP 03/27/17 05:25 Sodium 140 Potassium 4.1 Chloride 108 Carbon Dioxide 24 BUN 16 Creatinine 1.25 H Glucose 101 H Calcium 8.7 Liver Function 03/27/17 Range/Units 05:25 Total Bilirubin 0.4 (0.2-1.2) mg/dL AST 49 H (5-34) Units/L ALT 32 (0-55) Units/L Alkaline Phosphatase 116 (38-126) Units/L Albumin 3.1 L (3.5-5.0) g/dL - ABG Interpretation ABG results: PT/INR, D-dimer PT 11.5 Seconds (9.4-12.1) 03/27/17 05:25 - VTE Documentation of Mechanical Device: Intermittent pneumatic compression device Consult Discharge Plan - Plan Referrals: Garcia Thakkar Jr, MD [Primary Care Provider] -
[2017-03-27] MEDS ORDERED: Nitroglycerin 0.4 MG TAB.SUBL SL PRN (13:54)
[2017-03-27] MEDS: *HR* Heparin 5,000 UNIT/ML VIAL SQ SCH (17:28)
[2017-03-27] MEDS ORDERED: Aspirin Enteric Coated 81 MG Tablet PO SCH (18:00)
[2017-03-28 04:55] LABS: Basophils % 0.2 %; Eosinophils % 0.5 %; Hematocrit 32.1 % (35.3-44.9); Immature Granulocytes % 0.5 % (0-4); Lymphocytes # 0.7 K/mcL (0.6-4.6); Mean Corpuscular HGB Conc 31.2 g/dL (31.6-35.5); Mean Corpuscular Hemoglobin 27.2 pg (28.0-33.3); Mean Corpuscular Volume 87.2 fL (83.0-100.0); Mean Platelet Volume 8.6 fL (9.4-12.4); Monocytes # 0.7 K/mcL (0.0-1.3); Monocytes % 10.6 %; Neutrophils # 5.1 K/mcL (1.6-8.9); Platelet Count 181 K/mcL (140-400); Red Blood Count 3.68 M/mcL (3.82-4.97); Red Cell Distribution Width 13.1 % (11.5-14.5); Segmented Neutrophils % 77.2 %
[2017-03-28 05:36] LABS: Albumin 2.9 g/dL (3.5-5.0); Albumin/Globulin Ratio 0.9 (1.1-2.2); Bilirubin,Total 0.7 mg/dL (0.2-1.2); Calcium 8.6 mg/dL (8.6-10.8); Globulin 3.2 g/dL (2.4-3.5); Potassium 4.4 mEq/L (3.5-4.5); Total Protein 6.1 g/dL (6.0-8.3)
[2017-03-28] MEDS: *HR* Heparin 5,000 UNIT/ML VIAL SQ SCH (05:53)
[2017-03-28] MEDS: *HR* Morphine 2 MG/ML SYRINGE IVP PRN (05:56)
--- NOTE | 2017-03-28 08:22 | Cardiology Progress Note ---
Date of Encounter: 03/28/17 Time of Encounter: 08:20 Assessment and Plan (1) Fall down steps Current Visit: Yes Status: Acute Per Cardiology: S/p Fall-- appears to be mechanical fall. No pauses or arrhythmias noted on telemetry. Head CT 03/26/17 16:34 IMPRESSION: No acute abnormality of the cervical spine. No acute intracranial abnormality. Qualifiers: Encounter type: initial encounter Qualified Code(s): W10.8XXA - Fall (on) ( from) other stairs and steps, initial encounter (2) Closed left humeral fracture Current Visit: Yes Status: Acute Per Cardiology: Humerus X-Ray 03/26/17 16:34 IMPRESSION: Angulated fracture of the left humeral shaft with slight overlap of fracture fragments. Seen by ortho with pending surgery today. Management per ortho and primary service. Qualifiers: Encounter type: initial encounter Humerus Location: shaft Fracture morphology: unspecified fracture morphology Qualified Code(s): S42.302A - Unspecified fracture of shaft of humerus, left arm, initial encounter for closed fracture (3) CAD (coronary artery disease) Current Visit: Yes Status: Chronic Per Cardiology: Hx of CAD. Last seen by Dr. Shields 06/2016. Last [facility] 08/2014: Patient had successful PTCA/Drug-Eluting Stent placement in the mid LAD. Has remaining Ramus 80% lesion. CP free. Negative nuclear stress test April 2015 and April 2016. On statin, BB, and long acting nitrate. Asa and plavix off (no recent stenting in past 1 year) recommend resume when ok with ortho. Qualifiers: Coronary Disease-Associated Artery/Lesion type: [place] artery [place] vs. transplanted heart: [place] heart Associated angina: without angina Qualified Code(s): I25.10 - Atherosclerotic heart disease of [place] coronary artery without angina pectoris (4) Preop cardiovascular exam Current Visit: Yes Status: Acute Per Cardiology: Echo shows EF preserved 60%, no significant valvular dysfunction, mild diastolic dysfunction, NSWMA. Considered moderate risk from planned procedure from a cardiac standpoint. Patient and family verbalized understanding and agreed with plan. Cardiology will sign off, reconsult as needed, follow-up scheduled. Discussion w patient/family: The assessment and plan as outlined above was discussed with the patient and family who expressed understanding and agreement. All questions were answered. Thank you for involving us in the care of your patient. Please call with any questions. Subjective Principal diagnosis: S/p Fall Interval history: Patient seen with family at bedside. She denies any chest pain or shortness of breath. Reports left shoulder soreness. Reports pending surgery later today. Objective Vital Signs, Last 4 Hours Temp Pulse Resp BP Pulse Ox 03/28/17 07:08 97.9 F 90 16 138/69 95 General: Conversant Cardiac: Reg Rate and Rhythm, Normal S1 and S2, No Murmur Lungs: Normal Breath Sounds, No Wheeze, Rales, Rhonchi Extremities: No Edema, Other (+1 nonpitting right ankle swelling-- daughter reports from fall) Results 03/28/17 04:45 03/28/17 04:45 Lab Results Impressions Abdomen/Pelvis CT 03/26/17 16:34 IMPRESSION: 1. No evidence of traumatic abdominal or pelvic visceral injury. 2. Colonic diverticulosis with no acute features. 3. Previous cholecystectomy and hysterectomy. D/ / 03/26/2017 17:44:59 Jordan Fofana MD / yen Interpreting Provider: Jordan Fofana MD Chest CT 03/26/17 16:46 IMPRESSION: 1. No evidence of traumatic injury to the chest. No acute pulmonary findings. 2. Atherosclerotic changes in the aorta and coronary circulation. D/ / 03/26/2017 17:39:39 Jordan Fofana MD / yen Interpreting Provider: Jordan Fofana MD Echocardiogram 03/27/17 10:17 Impressions: LVEF 60%. Normal LV chamber size and function. Mild asymmetric hypertrophy of the basal septum. No LVOT obstruction. Mild left ventricular diastolic dysfunction. Normal right ventricular structure and function. No evidence of pulmonary hypertension. No significant valvular dysfunction. Left Ventricular Wall Motion: Rest Echo Findings All wall segments showed normal motion. Findings: Study Quality * Technically adequate exam. ECG Findings * Normal sinus rhythm. Left Ventricle * LVEF 60%. * Normal LV chamber size and function. * Mild asymmetric hypertrophy of the basal septum. No LVOT obstruction. * Mild left ventricular diastolic dysfunction. Right Ventricle * Normal right ventricular structure and function. Left Atrium * Normal left atrial size. Right Atrium * Normal right atrial size. Interatrial Septum * No evidence of PFO by color Doppler. Aortic Valve * Trileaflet aortic valve with normal function. * No aortic stenosis. * No aortic regurgitation. Mitral Valve * Normal mitral valve structure and function. * No mitral stenosis. * No mitral regurgitation. Tricuspid Valve * Normal tricuspid valve structure and function. * Trace tricuspid regurgitation. * No evidence of pulmonary hypertension. Pulmonic Valve * Pulmonic valve not well visualized. * No pulmonic regurgitation. Aorta * Normally sized aortic root. Pericardium * The pericardium appears normal. IVC * Normal IVC dimensions and inspiratory collapse. Pulmonary Artery * Normal visualized portions of the main pulmonary artery. Active Medications Acetaminophen (Tylenol) 650 mg PO Q6HR PRN PRN Reason: Mild Pain (1-3) Stop: 09/25/17 21:07 Hydrocodone Bitart/Acetaminophen ([place] 5-325 Mg) 1 tab PO Q4HR PRN PRN Reason: Moderate Pain (4-6) Stop: 09/25/17 21:07 Last Admin: 03/27/17 19:35 Dose: 1 tab Amlodipine Besylate (Norvasc) 2.5 mg PO QAM [facility] PRN Reason: Protocol Stop: 09/27/17 09:01 Heparin Sodium (Porcine) (Heparin) 5,000 unit SQ Q12HCO [facility] Stop: 09/26/17 18:01 Last Admin: 03/28/17 05:53 Dose: 5,000 unit Isosorbide Mononitrate (Imdur) 90 mg PO DAILY [facility] Stop: 09/26/17 12:01 Last Admin: 03/27/17 12:25 Dose: 90 mg Levothyroxine Sodium (Synthroid) 50 mcg PO 0630 [facility] Stop: 09/27/17 06:31 Last Admin: 03/28/17 05:53 Dose: 50 mcg Metoprolol Tartrate (Lopressor) 25 mg PO BID [facility] Stop: 09/26/17 12:01 Last Admin: 03/27/17 19:35 Dose: Not Given Morphine Sulfate (Morphine Sulfate) 2 mg IVP Q4HR PRN PRN Reason: Severe Pain (7-10) Stop: 09/25/17 21:07 Last Admin: 03/28/17 05:56 Dose: 2 mg Naloxone HCl (Narcan) 0.4 mg IVP Q2MIN PRN PRN Reason: Opioid Reversal Stop: 09/25/17 21:07 Nitroglycerin (Nitroglycerin) 0.4 mg SL Q5M PRN PRN Reason: Chest Pain Stop: 09/26/17 13:55 Ondansetron HCl (Zofran) 4 mg IVP Q8HR PRN PRN Reason: Nausea And Vomiting Stop: 09/25/17 21:07 Pantoprazole Sodium (Protonix) 40 mg IVP DAILY [facility] Stop: 09/25/17 21:16 Last Admin: 03/27/17 08:09 Dose: 40 mg Simvastatin (Zocor) 40 mg PO QPM [facility] PRN Reason: Protocol Stop: 09/26/17 18:01 Last Admin: 03/27/17 17:27 Dose: 40 mg - Imaging and Cardiology Echo: report reviewed - EKG Interpretation EKG results cardiology: other (Telemetry reviewed with average heart rate the past 12 hours 82, sinus rhythm, no events noted) - VTE Documentation of Mechanical Device: Intermittent pneumatic compression device Consult Discharge Plan - Plan Referrals: Garcia Thakkar Jr, MD [Primary Care Provider] -
[2017-03-28] MEDS: Isosorbide MONOnitrate (24 HR) 30 MG TAB.ER.24H PO SCH (08:54)
[2017-03-28] MEDS: Pantoprazole 40 MG VIAL IVP SCH (08:54)
[2017-03-28] MEDS ORDERED: amLODIPine 5 MG TABLET PO SCH (09:00)
[2017-03-28] MEDS ORDERED: 0.9 % Sodium Chloride 1,000 ML IVC SCH ×2 (09:45→17:34)
--- NOTE | 2017-03-28 10:14 | Internal Med Progress Note ---
Date of Encounter: 03/28/17 Time of Encounter: 08:50 - Assessment and plan (1) Closed left humeral fracture Current Visit: Yes Status: Acute Assessment and plan: Acute left closed mid humeral shaft fracture - secondary to mechanical fall Continue [place] PRN, IV Morphine PRN, DVT prophylaxis, NPO Orthopedics consult - scheduled for surgery today CT head - no acute intracranial abnormality CT cervical spine - no acute abnormality CT abdomen and pelvis - no evidence of traumatic abdominal injury, colonic diverticulosis X-rays - no fracture of left knee, severe soft tissue swelling over right ankle , fracture of the mid humeral shaft on the left side CT chest - no evidence of traumatic injury, no acute pulmonary findings Lumbar and thoracic spine CT - no acute abnormality Cardiology consultation for clearance - moderate risk, cleared for surgery Echocardiogram - LVEF 60%, normal LV size and function, mild LV diastolic dysfunction, normal RV function, no significant valvular dysfunction Cardiac telemetry, labs in a.m., monitor closely Qualifiers: Encounter type: initial encounter Humerus Location: shaft Fracture morphology: unspecified fracture morphology Qualified Code(s): S42.302A - Unspecified fracture of shaft of humerus, left arm, initial encounter for closed fracture (2) Fall down steps Current Visit: Yes Status: Acute Assessment and plan: Patient apparently has a history of recurrent falls - unclear etiology, patient states falls are all mechanical Continue fall precautions Qualifiers: Encounter type: initial encounter Qualified Code(s): W10.8XXA - Fall (on) ( from) other stairs and steps, initial encounter (3) HLD (hyperlipidemia) Current Visit: Yes Status: Chronic Assessment and plan: Continue home dose of Zocor Qualifiers: Hyperlipidemia type: pure hypercholesterolemia Qualified Code(s): E78.00 - Pure hypercholesterolemia, unspecified; E78.0 - Pure hypercholesterolemia (4) Essential hypertension Current Visit: Yes Status: Chronic Assessment and plan: Essential hypertension, controlled, monitor Continue home dose of Lopressor, Norvasc (5) CAD (coronary artery disease) Current Visit: Yes Status: Chronic Assessment and plan: Coronary artery disease status post stent - stable Restart home dose of Aspirin, Plavix after surgery Continue Zocor, Lopressor Qualifiers: Coronary Disease-Associated Artery/Lesion type: [place] artery [place] vs. transplanted heart: [place] heart Associated angina: without angina Qualified Code(s): I25.10 - Atherosclerotic heart disease of [place] coronary artery without angina pectoris (6) CKD (chronic kidney disease) stage 3, GFR 30-59 ml/min Current Visit: Yes Status: Chronic Assessment and plan: Chronic kidney disease stage III, stable - creatinine and GFR baseline Repeat labs in a.m., monitor closely (7) DVT prophylaxis Current Visit: Yes Status: Acute Assessment and plan: SCDs, subcutaneous heparin Fecal Hemoccult pending, patient reported dark stool on admission - Time Spent With Patient 25 - 35 minutes - Subjective Interval history: Examined this morning. Patient is awake and alert. Denies chest pain or shortness of breath. No fever. Hemodynamically stable. Complains of pain and swelling of left arm, improves with pain medication. No other acute events or complaints. Admitted for closed left humeral fracture after a mechanical fall. Scheduled for surgery today. Patient does have cardiac clearance for surgery. - Constitutional Vitals: Temp Pulse Resp BP Pulse Ox 97.9 F 90 16 138/69 95 03/28/17 07:08 03/28/17 07:08 03/28/17 07:08 03/28/17 07:08 03/28/17 07:08 General appearance: Present: cooperative, A&O X 3, pleasant, no acute distress, answers questions appropriately - Head Head exam: Present: atraumatic - Eye Eye exam: Present: EOMI - ENT ENT exam: Present: mucous membranes moist - Respiratory Respiratory exam: Present: decreased breath sounds (Slightly decreased in both bases, otherwise clear to auscultation). Absent: accessory muscle use, chest wall tenderness, rales, respiratory distress, wheezes, tachypnea - Cardiovascular Cardiovascular exam: Present: RRR, +S1, +S2 - GI/Abdominal GI/Abdominal exam: Present: soft. Absent: distended, firm, guarding, tenderness - Extremities Exam Extremities exam: Absent: calf tenderness, cyanotic, pedal edema Additional comments: Left arm in sling. Tenderness over left shoulder and arm. - Neurological Exam Neurological exam: Present: alert, oriented X3, no focal deficits. Absent: facial droop, speech deficit Internal Medicine: Result - Labs CBC & Chem 7: 03/28/17 04:45 03/28/17 04:45 Labs: Short CBC 03/28/17 Range/Units 04:45 WBC 6.5 (4.3-11.1) K/mcL Hgb 10.0 L (11.5-15.4) g/dL Hct 32.1 L (35.3-44.9) % Plt Count 181 (140-400) K/mcL Neutrophils # 5.1 (1.6-8.9) K/mcL BMP 03/28/17 04:45 Sodium 136 Potassium 4.4 Chloride 103 Carbon Dioxide 23 BUN 15 Creatinine 1.20 H Glucose 109 H Calcium 8.6 Liver Function 03/28/17 Range/Units 04:45 Total Bilirubin 0.7 (0.2-1.2) mg/dL AST 21 (5-34) Units/L ALT 23 (0-55) Units/L Alkaline Phosphatase 109 (38-126) Units/L Albumin 2.9 L (3.5-5.0) g/dL - ABG Interpretation ABG results: PT/INR, D-dimer PT 11.5 Seconds (9.4-12.1) 03/27/17 05:25 - Impressions Impressions Echocardiogram 03/27/17 10:17 Impressions: LVEF 60%. Normal LV chamber size and function. Mild asymmetric hypertrophy of the basal septum. No LVOT obstruction. Mild left ventricular diastolic dysfunction. Normal right ventricular structure and function. No evidence of pulmonary hypertension. No significant valvular dysfunction. Left Ventricular Wall Motion: Rest Echo Findings All wall segments showed normal motion. Findings: Study Quality * Technically adequate exam. ECG Findings * Normal sinus rhythm. Left Ventricle * LVEF 60%. * Normal LV chamber size and function. * Mild asymmetric hypertrophy of the basal septum. No LVOT obstruction. * Mild left ventricular diastolic dysfunction. Right Ventricle * Normal right ventricular structure and function. Left Atrium * Normal left atrial size. Right Atrium * Normal right atrial size. Interatrial Septum * No evidence of PFO by color Doppler. Aortic Valve * Trileaflet aortic valve with normal function. * No aortic stenosis. * No aortic regurgitation. Mitral Valve * Normal mitral valve structure and function. * No mitral stenosis. * No mitral regurgitation. Tricuspid Valve * Normal tricuspid valve structure and function. * Trace tricuspid regurgitation. * No evidence of pulmonary hypertension. Pulmonic Valve * Pulmonic valve not well visualized. * No pulmonic regurgitation. Aorta * Normally sized aortic root. Pericardium * The pericardium appears normal. IVC * Normal IVC dimensions and inspiratory collapse. Pulmonary Artery * Normal visualized portions of the main pulmonary artery. - VTE Documentation of Mechanical Device: Intermittent pneumatic compression device Consult Discharge Plan - Plan Referrals: Garcia Thakkar Jr, MD [Primary Care Provider] -
--- NOTE | 2017-03-28 14:11 | Anesthesia Evaluation PreOp ---
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), sinus surgery, EUS, ERCP) : No Alcohol Use: none Drug use: none Medications and Allergies Aspirin [Adult Low Dose Aspirin EC] 81 mg PO QPM 05/12/15 [History] Clopidogrel [Plavix] 75 mg PO DAILY 05/12/15 [History] Metoprolol [Lopressor] 25 mg PO BID 05/12/15 [History] Nitroglycerin [Nitrostat] 0.4 mg SL Q5M PRN 05/12/15 [History] Simvastatin [Zocor] 40 mg PO QPM 05/12/15 [History] amLODIPine [Norvasc] 2.5 mg PO QAM 05/12/15 [History] Levothyroxine [Synthroid] 50 mcg PO QAM 08/28/15 [History] Furosemide [Lasix] 20 mg PO DAILY PRN 05/06/16 [History] Isosorbide MONOnitrate [Isosorbide Mononitrate ER] 120 mg PO DAILY 05/06/16 [ History] Omeprazole [PriLOSEC] 20 mg PO DAILY 12/01/16 [History] Oxycodone HCl/Acetaminophen [Percocet 7.5-325 mg Tablet] 1 tab PO Q4-6H PRN [History] Fluorometholone [Fluorometholone] 1 drop BOTH EYES QID 03/27/17 [History] 3 Allergy/AdvReac Type Severity Reaction Status Date / Time esomeprazole [From Nexium] AdvReac Chest Pain Verified 05/06/16 15:53 Hydromorphone [From Dilaudid] AdvReac Vomiting Verified 05/06/16 15:53 iron AdvReac Vomiting Verified 05/06/16 15:53 - Meds/Allergy Pre-op Review Medications Reviewed: Yes Allergies Reviewed: Yes Beta Blockers on Current Med List: Yes If Beta Blockers taken, Date/Time (Last Dose taken): 08:54 2016 Anesthesia Results - Labs 03/28/17 04:45 03/28/17 04:45 Echocardiogram Name: Adilene Hall Date of Study: 03/27/2017 Impressions: LVEF 60%. Normal LV chamber size and function. Mild asymmetric hypertrophy of the basal septum. No LVOT obstruction. Mild left ventricular diastolic dysfunction. Normal right ventricular structure and function. No evidence of pulmonary hypertension. No significant valvular dysfunction. [facility] 08/2014: Patient had successful PTCA/Drug-Eluting Stent placement in the mid LAD. Has remaining Ramus 80% lesion. CP free. Negative nuclear stress test April 2015 and April 2016 Anesthesia Exam O2 Sat Weight 68.6 kg O2 Sat by Pulse Oximetry 96 O2 Sat by Pulse Oximetry 95 O2 Sat by Pulse Oximetry 96 O2 Sat by Pulse Oximetry 95 O2 Sat by Pulse Oximetry 96 O2 Sat by Pulse Oximetry 96 O2 Sat by Pulse Oximetry 97 Vital Signs Temp Pulse Resp BP Pulse Ox 98.2 F 86 18 184/96 98 03/26/17 16:27 03/26/17 16:27 03/26/17 16:27 03/26/17 16:27 03/26/17 16:27 Vital Signs/O2 Sat, Most Current Temp Pulse Resp BP Pulse Ox 98.9 F 87 15 132/68 96 03/28/17 11:30 03/28/17 11:30 03/28/17 11:30 03/28/17 11:30 03/28/17 11:30 Height: 5'1'' Weight: 151# NPO (# of Hours): > 8 hrs Pain Scale: 0 Pain Scale Used: Numeric (1 - 10) - HEENT Pupil (Motor): Pupils equal, EOMI Mallampati: III Teeth: Edentulous Oral Opening: Greater than 3 - SEMIAUTOMATIC TAPER OPERATOR LOC: Oriented SEMIAUTOMATIC TAPER OPERATOR Motor: Normal RUE, Normal LUE, Normal RLE, Normal LLE, Normal Face SEMIAUTOMATIC TAPER OPERATOR Sensory: Normal: RUE, LUE, RLE, LLE, Face - Cardiac Rhythm: Regular Murmur: None JVD: No Carotid Bruit: No - Pulmonary Breath Sounds: bilateral Clear Respiratory Effort: Symmetrical Anesthesia Assess/Plan ASA Score: 3 Modified Kaden Scale for Level of Consciousness: Cooperative, oriented, and tranquil Anesthetic Plan: General Autologous Blood: Yes Monitoring Plan: Standard Monitors Recovery Plan: PACU
[2017-03-28] MEDS ORDERED: ROPIVACAINE HCL/PF 0.5% 30 ML VIAL ONE (14:24)
[2017-03-28] MEDS ORDERED: Acetaminophen IV 1,000 MG/100 ML INFUS..BTL ONE (14:26)
--- NOTE | 2017-03-28 15:04 | Electrocardiograph Report ---
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
[2017-03-28] MEDS ORDERED: *HR* FentaNYL (PF) 100 MCG/2 ML VIAL ONE (15:26)
[2017-03-28] MEDS ORDERED: *HR* Propofol 200 MG/20 ML VIAL IVP ONE (15:26)
[2017-03-28] MEDS ORDERED: *HR* Midazolam HCl 2 MG/2 ML VIAL ONE (15:26)
[2017-03-28] MEDS ORDERED: ceFAZolin 2,000 MG in Water for inj. (sterile) 20 ML IVP ONE (15:31)
[2017-03-28] MEDS ORDERED: *HR* Phenylephrine 10 MG/ML VIAL ONE (15:38)
[2017-03-28] MEDS ORDERED: *HR* Morphine 2 MG/ML SYRINGE IVP PRN (15:41)
[2017-03-28] MEDS ORDERED: Ondansetron 4 MG/2 ML VIAL IVP PRN ×2 (15:41→17:34)
[2017-03-28] MEDS ORDERED: Dexamethasone 4 MG/ML VIAL ONE (15:43)
[2017-03-28] MEDS ORDERED: Ondansetron 4 MG/2 ML VIAL ONE (15:43)
[2017-03-28] MEDS ORDERED: Lidocaine -MPF 4% 5 ML AMPUL ONE (15:55)
--- NOTE | 2017-03-28 16:09 | Orthopedic Operative Note ---
Date of procedure: 03/28/17 Pre-op diagnosis: Periprosthetic left humeral shaft fracture Post-op diagnosis: same Procedure: Procedure: Left open reduction internal fixation Humerus Estimated blood loss: 50 cc Hardware: Synthes Large Frag 8 hole 4.5 LCDCP locking Plate, 3 4.5 cortical screws, 3 5.0 Locking screws, 4 super cables Procedural Notes: Periprosthetic fracture left humeral shaft Operative procedure: The patient was brought to the operating room and placed on the operating room table. After general anesthesia was administered the operative arm was prepped and draped in the sterile surgical fashion The patient received IV antibiotics prior to skin incision. A standard anterior lateral approach is made to the humerus, the incision is made to the skin and subcutaneous tissue. Hemostasis was obtained with Bovie cautery. Using careful blunt dissection the interval between the brachialis and the brachial radialis was developed. The radial nerve was identified and protected. The brachialis was split and the fracture site was exposed. The fracture was irrigated of fracture hematoma. Fracture was reduced and held in place with bone holding forceps. A hole 4.5 LCDCP locking plate was approximated to the anterior lateral surface, it was fixed initially compression distally and proximally with 2 4.5 cortical screws. Position of the hardware was found to be acceptable with fluoroscopic assistance. Distally the fracture was fixed with 5.0 locking screws and an additional cortical screw proximally the fixation was accomplished with 4 cables secondary to intramedullary prosthesis. Fluoroscopic and direct vision of the hardware was found to be acceptable as well as the reduction. Wound was closed by the PA. The wound was irrigated 5 mL of DBX bone stimulated protein was packed around the fracture site, and the interval was closed with a running #1 PDS suture. The subcutaneous tissues irrigated and closed deep with #1 PDS suture superficially with 0 PDS suture and skin was closed with skin viktoriya. The patient was placed in a sterile dressing, posterior splint. The patient was extubated, and then transferred to the recovery room in stable condition. Anesthesia: GETA Surgeon: Jacek Rawls Condition: stable Disposition: PACU
[2017-03-28 17:17] LABS: Hematocrit 32.8 % (35.3-44.9); Hemoglobin 10.2 g/dL (11.5-15.4)
--- NOTE | 2017-03-28 17:17 | Anesthesia Evaluation Post Op ---
Date of Encounter: 03/28/17 Time of Encounter: 17:17 - Vital Signs Vital Signs: Selected Entries 03/28/17 17:13 Temperature 98.5 F Pulse Rate 75 Respiratory Rate 12 Blood Pressure 126/63 O2 Sat by Pulse Oximetry 98 Oxygen Flow Rate (LPM) 2 - Lungs Lungs: Clear Ascult./Percussion - Airway Airway: Non-obstructed - Cardiovascular Regular Rate - Mental Status Mental Status: Alert & Oriented, Answers Appropriately - Pain Pain Scale: 0 Pain Scale used: Numeric (1 - 10) - Nausea Vomiting Nausea Vomiting: Not Present - Hydration Hydration: Ice chips, Has not voided - Discharge PostOp Status: Transfer Patient to floor
[2017-03-28] MEDS ORDERED: Ringers Solution, Lactated 1,000 ML IVC SCH (17:34)
[2017-03-28] MEDS ORDERED: Acetaminophen 325 MG TABLET PO PRN (17:34)
[2017-03-28] MEDS ORDERED: Temazepam 15 MG CAPSULE PO PRN (17:34)
[2017-03-28] MEDS ORDERED: Naloxone 0.4 MG/ML INJ IVP PRN (17:34)
[2017-03-28] MEDS ORDERED: Sennosides 8.6 MG TABLET PO PRN (17:34)
[2017-03-28] MEDS ORDERED: MOM Conc 10 ML UD.LIQ PO PRN (17:34)
[2017-03-28] MEDS: CeFAZolin Premix DUPLEX 2,000 MG/50 ML BAG IVPB SCH (18:25)
[2017-03-29] MEDS: CeFAZolin Premix DUPLEX 2,000 MG/50 ML BAG IVPB SCH (00:30)
[2017-03-29] MEDS: *HR* HYDROcodone/Acet 5/325 mg TABLET PO PRN ×4 (04:25→22:18)
[2017-03-29 05:49] LABS: Hematocrit 29.3 % (35.3-44.9); Hemoglobin 9.2 g/dL (11.5-15.4)
--- NOTE | 2017-03-29 06:38 | Orthopedics Progress Note ---
Date of Encounter: 03/29/17 Time of Encounter: 06:37 Subjective Principal diagnosis: S/p Fall Interval history: Patient was seen this morning doing well without complaints. Afebrile vital signs stable. Operative extremity: Neurovascularly intact Dressing clean dry and intact Calves nontender Assessment and plan: Continue with postoperative care Hematocrit 29 Objective Vital signs: Vital Signs Temp Pulse Resp BP Pulse Ox 03/29/17 03:38 98.5 F 77 18 107/67 96 03/28/17 23:33 97.6 F 69 16 115/78 100 03/28/17 20:21 96 03/28/17 20:10 98.2 F 83 15 111/66 96 03/28/17 19:09 97.9 F 78 17 121/66 96 03/28/17 18:27 98.0 F 77 15 125/66 95 03/28/17 18:06 98.0 F 77 16 124/67 96 03/28/17 17:30 98.0 F 76 15 124/68 97 03/28/17 17:13 98.5 F 75 12 126/63 98 03/28/17 17:03 98.5 F 79 12 127/74 98 03/28/17 16:53 80 13 127/66 98 03/28/17 16:43 73 12 119/59 97 03/28/17 16:36 89 112/58 98 03/28/17 16:33 99.7 F H 79 14 111/59 98 03/28/17 11:30 98.9 F 87 15 132/68 96 03/28/17 07:08 97.9 F 90 16 138/69 95 Intake and Output 03/28/17 03/28/17 03/29/17 15:59 23:59 07:59 Intake Total 50 / 50 200 / 200 Output Total 325 / 325 500 / 500 400 / 400 Balance -325 / -325 -450 / -450 -200 / -200 Intake: IV Fluids 50 / 50 Ancef Premix DUPLEX 2,000 mg In 50 / 50 50 ml @ 100 mls/hr IVPB Q8HR [facility] Rx#:[id number] Oral 200 / 200 Output: Urine 325 / 325 400 / 400 400 / 400 Estimated Blood Loss 100 / 100 - Labs CBC & BMP: 03/29/17 05:02 03/28/17 04:45 Labs: Abnormal lab results RBC 3.68 M/mcL (3.82-4.97) L 03/28/17 04:45 Hgb 9.2 g/dL (11.5-15.4) L 03/29/17 05:02 Hct 29.3 % (35.3-44.9) L 03/29/17 05:02 MCH 27.2 pg (28.0-33.3) L 03/28/17 04:45 MCHC 31.2 g/dL (31.6-35.5) L 03/28/17 04:45 MPV 8.6 fL (9.4-12.4) L 03/28/17 04:45 Creatinine 1.20 mg/dL (0.57-1.11) H 03/28/17 04:45 Est GFR ( Amer) 53 (> 60) L 03/28/17 04:45 Est GFR (Non-Af Amer) 43 (> 60) L 03/28/17 04:45 Glucose 109 mg/dL (70-99) H 03/28/17 04:45 Albumin 2.9 g/dL (3.5-5.0) L 03/28/17 04:45 Albumin/Globulin Ratio 0.9 (1.1-2.2) L 03/28/17 04:45 Cholesterol 214 mg/dL (< 200) H 03/27/17 05:25 LDL Cholesterol, Calc 141 mg/dL (0-99) H 03/27/17 05:25 - VTE Documentation of Mechanical Device: Intermittent pneumatic compression device Consult Discharge Plan - Plan Referrals: Garcia Thakkar Jr, MD [Primary Care Provider] -
[2017-03-29] MEDS: amLODIPine 5 MG TABLET PO SCH (08:25)
[2017-03-29] MEDS: Isosorbide MONOnitrate (24 HR) 30 MG TAB.ER.24H PO SCH (08:31)
[2017-03-29] MEDS: *HR* Morphine 2 MG/ML SYRINGE IVP PRN ×4 (08:35→23:39)
[2017-03-29] MEDS ORDERED: Pantoprazole 40 MG VIAL IVP SCH (09:00)
--- NOTE | 2017-03-29 16:04 | Event Note ---
Date of Encounter: 03/29/17 Time of Encounter: 13:00 POD#.1 Left Humerus kelley-prosthetic fracture, ORIF with plate and cable 03/29/17 - Bone Stimulator in place. Posterior splint, with simple sling. No shoulder/elbow ROM. Encouraged digital ROM, ICE and elevation. Patient seen at bedside. Pain control: adequate All questions and concerns addressed. Educated on use of incentive spirometer, ambulation, and hydration. Patient educated on post-operative restrictions and care. D/C plan: HH or ECF
--- NOTE | 2017-03-29 16:10 | Internal Med Progress Note ---
Date of Encounter: 03/29/17 Time of Encounter: 15:15 - Assessment and plan (1) Closed left humeral fracture Current Visit: Yes Status: Acute Assessment and plan: Patient presented with fracture of shaft of left humerus status post mechanical fall. Orthopedic surgery on board, patient underwent open reduction and internal fixation of left humeral fracture, postoperative day 1. Continue pain control with when necessary IV morphine and oral hydrocodone. Left upper extremity swelling. Supportive care. Physical therapy evaluation recommends placement in extended care facility. special services director on board. Qualifiers: Encounter type: initial encounter Humerus Location: shaft Fracture morphology: unspecified fracture morphology Qualified Code(s): S42.302A - Unspecified fracture of shaft of humerus, left arm, initial encounter for closed fracture (2) HLD (hyperlipidemia) Current Visit: Yes Status: Chronic Qualifiers: Hyperlipidemia type: unspecified Qualified Code(s): E78.5 - Hyperlipidemia , unspecified (3) CAD (coronary artery disease) Current Visit: Yes Status: Chronic Assessment and plan: Continue Plavix, statin and beta clem. Qualifiers: Coronary Disease-Associated Artery/Lesion type: [place] artery [place] vs. transplanted heart: [place] heart Associated angina: without angina Qualified Code(s): I25.10 - Atherosclerotic heart disease of [place] coronary artery without angina pectoris (4) CKD (chronic kidney disease) stage 3, GFR 30-59 ml/min Current Visit: Yes Status: Chronic Assessment and plan: Serum creatinine noted to be stable, at 1.2. Avoid nephrotoxic agents, continue to monitor serum creatinine closely. (5) Hypothyroidism Current Visit: Yes Status: Chronic Assessment and plan: Continue levothyroxine. Qualifiers: Hypothyroidism type: unspecified Qualified Code(s): E03.9 - Hypothyroidism , unspecified (6) Anemia Current Visit: Yes Status: Acute Assessment and plan: Noted to have postoperative anemia, hemoglobin 9.2. We will transfuse 1 unit PRBC due to underlying coronary artery disease. Continue to monitor hemoglobin closely. Qualifiers: Anemia type: other cause Other causes of anemia: acute posthemorrhagic Qualified Code(s): D62 - Acute posthemorrhagic anemia (7) Essential hypertension Current Visit: Yes Status: Chronic - Subjective Interval history: Reports severe pain in left arm and shoulder; no fever/chills, nausea/vomiting; - Constitutional Vitals: Temp Pulse Resp BP Pulse Ox 98.3 F 104 15 149/63 95 03/29/17 13:52 03/29/17 13:52 03/29/17 13:52 03/29/17 13:52 03/29/17 13:52 General appearance: Present: cooperative, mild distress, A&O X 3, answers questions appropriately - Respiratory Respiratory exam: Present: CTAB. Absent: accessory muscle use, rales, rhonchi, wheezes - Cardiovascular Cardiovascular exam: Present: RRR, +S1, +S2. Absent: diastolic murmur, gallop, rubs, systolic murmur - GI/Abdominal GI/Abdominal exam: Present: normal bowel sounds, soft, no peritoneal signs. Absent: distended, tenderness - Extremities Exam Extremities exam: Present: full ROM (left shoulder and elbow restricted due to pain), warm, radial pulses palpable and symmetrical. Absent: calf tenderness, cyanotic, pedal edema Additional comments: left arm in sling/surgical dressing- viktoriya intact Internal Medicine: Result - Labs CBC & Chem 7: 03/30/17 04:30 03/30/17 04:30 Labs: Short CBC 03/28/17 03/29/17 Range/Units 17:08 05:02 Hgb 10.2 L 9.2 L (11.5-15.4) g/dL Hct 32.8 L 29.3 L (35.3-44.9) % - ABG Interpretation ABG results: PT/INR, D-dimer PT 11.5 Seconds (9.4-12.1) 03/27/17 05:25 - Impressions Impressions Humerus X-Ray 03/28/17 15:14 IMPRESSION: No radiographic evidence of complication status post ORIF of midshaft left humeral fracture. D/ / Eliel Carter MD / Eliel Carter MD Interpreting Provider: Eliel Carter MD Fluoroscopy 03/28/17 15:30 IMPRESSION: Intraprocedural fluoroscopic spot images as above. See separate procedure report for more information. D/ / Twyla Devine MD / Twyla Devine MD Interpreting Provider: Twyla Devine MD - VTE Documentation of Mechanical Device: Intermittent pneumatic compression device Consult Discharge Plan - Plan Referrals: Aurora Garcias, PAC [Physician Webmethods Consultant] - 04/19/17 8:00 am Jacek Rawls MD [Partnered Physician] - 05/10/17 9:15 am Sanaz Vaughn PAC [Physician Webmethods Consultant] - 04/06/17 10:30 am Garcia Thakkar Jr, MD [Primary Care Provider] -
[2017-03-29] MEDS ORDERED: 0.9 % Sodium Chloride 250 ML ONE (17:38)
[2017-03-30] MEDS: *HR* HYDROcodone/Acet 5/325 mg TABLET PO PRN ×3 (03:51→21:31)
[2017-03-30] MEDS: Nitroglycerin 0.4 MG TAB.SUBL SL PRN ×3 (04:05→04:35)
[2017-03-30 04:44] LABS: Basophils % 0.2 %; Eosinophils % 0.2 %; Hematocrit 30.4 % (35.3-44.9); Hemoglobin 9.6 g/dL (11.5-15.4); Immature Granulocytes % 0.4 % (0-4); Lymphocytes # 0.8 K/mcL (0.6-4.6); Lymphocytes % 9.5 %; Mean Corpuscular HGB Conc 31.6 g/dL (31.6-35.5); Mean Corpuscular Hemoglobin 27.9 pg (28.0-33.3); Mean Corpuscular Volume 88.4 fL (83.0-100.0); Monocytes # 0.7 K/mcL (0.0-1.3); Monocytes % 8.8 %; Neutrophils # 6.7 K/mcL (1.6-8.9); Platelet Count 180 K/mcL (140-400); Red Blood Count 3.44 M/mcL (3.82-4.97); Red Cell Distribution Width 13.4 % (11.5-14.5); Segmented Neutrophils % 80.9 %
[2017-03-30] MEDS: *HR* Morphine 2 MG/ML SYRINGE IVP PRN (04:47)
[2017-03-30 04:54] LABS: BUN/Creatinine Ratio 15 (6-26); Blood Urea Nitrogen 16 mg/dL (7-20); Calcium 8.5 mg/dL (8.6-10.8); Carbon Dioxide 25 mEq/L (19-29); Chloride 103 mEq/L (98-109); Glucose 105 mg/dL (70-99); Osmolality,Calculated 282 (280-300); Potassium 4.4 mEq/L (3.5-4.5); Sodium 135 mEq/L (136-145); eGFR For African Americans > 60 (> 60); eGFR For Non-African Americans 51 (> 60)
--- NOTE | 2017-03-30 07:24 | Electrocardiograph Report ---
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
[2017-03-30] MEDS: Isosorbide MONOnitrate (24 HR) 30 MG TAB.ER.24H PO SCH (07:59)
[2017-03-30] MEDS: amLODIPine 5 MG TABLET PO SCH (07:59)
--- NOTE | 2017-03-30 08:04 | Orthopedics Progress Note ---
Date of Encounter: 03/30/17 Time of Encounter: 08:04 Subjective Principal diagnosis: S/p Fall Interval history: Patient was seen this morning doing well with complaints of chest pain this morning being evaluated by medicine. Afebrile vital signs stable. Operative extremity: Neurovascularly intact Dressing clean dry and intact Calves nontender Assessment and plan: Continue with postoperative care Objective Vital signs: Vital Signs Temp Pulse Resp BP Pulse Ox 03/30/17 04:40 97.7 F 81 18 132/69 93 03/30/17 04:36 81 119/72 03/30/17 04:31 73 128/66 03/29/17 23:39 97.9 F 85 18 137/75 95 03/29/17 20:45 97.4 F L 99 18 147/79 93 03/29/17 18:49 98.1 F 102 18 146/83 96 03/29/17 18:05 98.1 F 101 16 149/73 94 03/29/17 18:01 98.2 F 100 16 155/73 97 03/29/17 17:50 98.4 F 100 15 135/72 95 03/29/17 13:52 98.3 F 104 15 149/63 95 03/29/17 08:24 98.2 F 76 15 127/75 98 Intake and Output 03/29/17 03/30/17 03/30/17 23:59 07:59 15:59 Intake Total 550 / 550 Output Total 1250 / 1250 Balance -700 / -700 Intake: Oral 250 / 250 Blood Product 300 / 300 Rbcs Leuko Poor As-1 Unit 300 / 300 [id number] Output: Urine 1250 / 1250 Other: Meal Lunch Percent of Meal Consumed 25% - Labs CBC & BMP: 03/30/17 04:30 03/30/17 04:30 Labs: Abnormal lab results RBC 3.44 M/mcL (3.82-4.97) L 03/30/17 04:30 Hgb 9.6 g/dL (11.5-15.4) L 03/30/17 04:30 Hct 30.4 % (35.3-44.9) L 03/30/17 04:30 MCH 27.9 pg (28.0-33.3) L 03/30/17 04:30 MPV 9.0 fL (9.4-12.4) L 03/30/17 04:30 Sodium 135 mEq/L (136-145) L 03/30/17 04:30 Est GFR (Non-Af Amer) 51 (> 60) L 03/30/17 04:30 Glucose 105 mg/dL (70-99) H 03/30/17 04:30 Calcium 8.5 mg/dL (8.6-10.8) L 03/30/17 04:30 Albumin 2.9 g/dL (3.5-5.0) L 03/28/17 04:45 Albumin/Globulin Ratio 0.9 (1.1-2.2) L 03/28/17 04:45 Cholesterol 214 mg/dL (< 200) H 03/27/17 05:25 LDL Cholesterol, Calc 141 mg/dL (0-99) H 03/27/17 05:25 - VTE Documentation of Mechanical Device: Intermittent pneumatic compression device Consult Discharge Plan - Plan Referrals: Garcia Thakkar Jr, MD [Primary Care Provider] -
--- NOTE | 2017-03-30 12:14 | Event Note ---
Date of Encounter: 03/30/17 Time of Encounter: 12:00 POD#2 Left Humerus kelley-prosthetic fracture, ORIF with plate and cable 03/29/17 - Bone Stimulator in place. Posterior splint, with simple sling. No shoulder/elbow ROM. Encouraged digital ROM, ICE and elevation. Patient seen at bedside. Patient sleeping soundly. Pain control: adequate D/C plan: [facility]
--- NOTE | 2017-03-30 17:55 | Internal Med Progress Note ---
Date of Encounter: 03/30/17 Time of Encounter: 14:40 - Assessment and plan (1) Closed left humeral fracture Current Visit: Yes Status: Acute Assessment and plan: Patient presented with fracture of shaft of left humerus status post mechanical fall. Orthopedic surgery on board, patient underwent open reduction and internal fixation of left humeral fracture, postoperative day 2. Continue pain control with when necessary IV morphine and oral hydrocodone. Left upper extremity sling. Supportive care. Physical therapy evaluation recommends placement in extended care facility. student services advisor on board, accepted at rehab. Qualifiers: Encounter type: initial encounter Humerus Location: shaft Fracture morphology: unspecified fracture morphology Qualified Code(s): S42.302A - Unspecified fracture of shaft of humerus, left arm, initial encounter for closed fracture (2) HLD (hyperlipidemia) Current Visit: Yes Status: Chronic Assessment and plan: Continue home dose of Zocor Qualifiers: Hyperlipidemia type: unspecified Qualified Code(s): E78.5 - Hyperlipidemia , unspecified (3) CAD (coronary artery disease) Current Visit: Yes Status: Chronic Assessment and plan: Continue Plavix, statin and beta clem. Qualifiers: Coronary Disease-Associated Artery/Lesion type: [place] artery [place] vs. transplanted heart: [place] heart Associated angina: without angina Qualified Code(s): I25.10 - Atherosclerotic heart disease of [place] coronary artery without angina pectoris (4) CKD (chronic kidney disease) stage 3, GFR 30-59 ml/min Current Visit: Yes Status: Chronic Assessment and plan: Serum creatinine noted to be stable, at 1.04. Avoid nephrotoxic agents, continue to monitor serum creatinine closely. (5) Hypothyroidism Current Visit: Yes Status: Chronic Assessment and plan: Continue levothyroxine. Qualifiers: Hypothyroidism type: unspecified Qualified Code(s): E03.9 - Hypothyroidism , unspecified (6) Anemia Current Visit: Yes Status: Acute Assessment and plan: Noted to have postoperative anemia, hemoglobin improved only to 9.6 from 9.2 We will transfuse 1 more unit PRBC due to underlying coronary artery disease. Continue to monitor hemoglobin closely. Qualifiers: Anemia type: other cause Other causes of anemia: acute posthemorrhagic Qualified Code(s): D62 - Acute posthemorrhagic anemia (7) Essential hypertension Current Visit: Yes Status: Chronic - Subjective Interval history: Reports not feeling well today, states she is not ready to be transferred to rehab yet; severe left arm pain and difficulty ambulating; slept most of the day today; denies nausea and vomiting but reports epigastric pain; - Constitutional Vitals: Temp Pulse Resp BP Pulse Ox 98.0 F 76 15 137/73 98 03/30/17 17:07 03/30/17 17:07 03/30/17 17:07 03/30/17 17:07 03/30/17 17:07 General appearance: Present: cooperative, mild distress, A&O X 3, answers questions appropriately - Respiratory Respiratory exam: Present: CTAB. Absent: accessory muscle use, rales, rhonchi, wheezes - Cardiovascular Cardiovascular exam: Present: RRR, +S1, +S2. Absent: diastolic murmur, gallop, rubs, systolic murmur - GI/Abdominal GI/Abdominal exam: Present: normal bowel sounds, soft (epigastric tenderness), no peritoneal signs. Absent: distended, tenderness - Extremities Exam Extremities exam: Present: full ROM (restricted in left shoulder and elbow), warm, radial pulses palpable and symmetrical. Absent: calf tenderness, cyanotic , pedal edema - Neurological Exam Neurological exam: Present: CN II-XII intact, oriented X3, no focal deficits. Absent: pronater drift, facial droop, speech deficit Internal Medicine: Result - Labs CBC & Chem 7: 03/30/17 04:30 03/30/17 04:30 Labs: Short CBC 03/30/17 Range/Units 04:30 WBC 8.2 (4.3-11.1) K/mcL Hgb 9.6 L (11.5-15.4) g/dL Hct 30.4 L (35.3-44.9) % Plt Count 180 (140-400) K/mcL Neutrophils # 6.7 (1.6-8.9) K/mcL BMP 03/30/17 04:30 Sodium 135 L Potassium 4.4 Chloride 103 Carbon Dioxide 25 BUN 16 Creatinine 1.04 Glucose 105 H Calcium 8.5 L Cardiac Enzymes 03/30/17 Range/Units 04:30 Troponin I 0.00 (0-0.03) ng/mL - ABG Interpretation ABG results: PT/INR, D-dimer PT 11.5 Seconds (9.4-12.1) 03/27/17 05:25 - VTE Documentation of Mechanical Device: Intermittent pneumatic compression device Consult Discharge Plan - Plan Referrals: Aurora Garcias, PAC [Physician Faa Certified Powerplant Mechanic] - 04/19/17 8:00 am Jacek Rawls MD [Partnered Physician] - 05/10/17 9:15 am Sanaz Vaughn PAC [Physician Faa Certified Powerplant Mechanic] - 04/06/17 10:30 am Garcia Thakkar Jr, MD [Primary Care Provider] -
[2017-03-30] MEDS ORDERED: 0.9 % Sodium Chloride 250 ML ONE (20:01)
[2017-03-31] MEDS: *HR* HYDROcodone/Acet 5/325 mg TABLET PO PRN ×3 (06:03→15:53)
[2017-03-31 06:24] LABS: Basophils % 0.3 %; Eosinophils # 0.1 K/mcL (0.0-0.6); Eosinophils % 0.9 %; Hematocrit 36.5 % (35.3-44.9); Immature Granulocytes % 0.4 % (0-4); Lymphocytes % 14.5 %; Mean Corpuscular HGB Conc 31.8 g/dL (31.6-35.5); Mean Corpuscular Hemoglobin 28.2 pg (28.0-33.3); Mean Corpuscular Volume 88.6 fL (83.0-100.0); Mean Platelet Volume 8.9 fL (9.4-12.4); Monocytes # 0.5 K/mcL (0.0-1.3); Monocytes % 7.7 %; Neutrophils # 5.3 K/mcL (1.6-8.9); Platelet Count 205 K/mcL (140-400); Red Blood Count 4.12 M/mcL (3.82-4.97); Red Cell Distribution Width 13.2 % (11.5-14.5); Segmented Neutrophils % 76.2 %
[2017-03-31 06:25] LABS: Hemoglobin 11.6 g/dL (11.5-15.4)
--- NOTE | 2017-03-31 08:10 | Orthopedics Progress Note ---
Date of Encounter: 03/31/17 Time of Encounter: 08:09 Subjective Principal diagnosis: S/p Fall Interval history: Patient was seen this morning doing well Afebrile vital signs stable. Operative extremity: Neurovascularly intact Dressing clean dry and intact Calves nontender Assessment and plan: Continue with postoperative care Stable for discharge Objective Vital signs: Vital Signs Temp Pulse Resp BP Pulse Ox 03/31/17 05:27 97.8 F 80 17 139/76 97 03/30/17 23:52 97.5 F L 99 18 152/78 95 03/30/17 21:21 98.4 F 91 16 139/78 03/30/17 21:06 98.2 F 91 16 135/70 03/30/17 20:57 98.7 F 16 132/76 98 03/30/17 20:17 98.1 F 88 17 134/69 97 03/30/17 17:07 98.0 F 76 15 137/73 98 Intake and Output 03/30/17 03/31/17 03/31/17 23:59 07:59 15:59 Intake Total 550 / 550 0 / 0 Output Total 450 / 450 Balance 100 / 100 0 / 0 Intake: Oral 200 / 200 Blood Product 350 / 350 0 / 0 Rbcs Leuko Poor As-1 Unit 350 / 350 0 / 0 [id number] Output: Urine 450 / 450 - Labs CBC & BMP: 03/31/17 05:58 03/30/17 04:30 Labs: Abnormal lab results MPV 8.9 fL (9.4-12.4) L 03/31/17 05:58 Sodium 135 mEq/L (136-145) L 03/30/17 04:30 Est GFR (Non-Af Amer) 51 (> 60) L 03/30/17 04:30 Glucose 105 mg/dL (70-99) H 03/30/17 04:30 Calcium 8.5 mg/dL (8.6-10.8) L 03/30/17 04:30 Albumin 2.9 g/dL (3.5-5.0) L 03/28/17 04:45 Albumin/Globulin Ratio 0.9 (1.1-2.2) L 03/28/17 04:45 Cholesterol 214 mg/dL (< 200) H 03/27/17 05:25 LDL Cholesterol, Calc 141 mg/dL (0-99) H 03/27/17 05:25 - VTE Documentation of Mechanical Device: Intermittent pneumatic compression device Consult Discharge Plan - Plan Referrals: Aurora Garcias, PAC [Physician Tractor Trailer Operator] - 04/19/17 8:00 am Jacek Rawls MD [Partnered Physician] - 05/10/17 9:15 am Sanaz Vaughn PAC [Physician Tractor Trailer Operator] - 04/06/17 10:30 am Garcia Thakkar Jr, MD [Primary Care Provider] -
[2017-03-31] MEDS: amLODIPine 5 MG TABLET PO SCH (10:01)
[2017-03-31] MEDS: Isosorbide MONOnitrate (24 HR) 30 MG TAB.ER.24H PO SCH (10:01)
--- NOTE | 2017-03-31 13:04 | Discharge Summary ---
Date of Encounter: 03/31/17 Time of Encounter: 12:59 - Discharge Diagnosis (1) Closed left humeral fracture Priority: Primary Status: Acute Qualifiers: Encounter type: initial encounter Humerus Location: shaft Fracture morphology: unspecified fracture morphology Qualified Code(s): S42.302A - Unspecified fracture of shaft of humerus, left arm, initial encounter for closed fracture (2) HLD (hyperlipidemia) Priority: Secondary Status: Chronic Qualifiers: Hyperlipidemia type: unspecified Qualified Code(s): E78.5 - Hyperlipidemia , unspecified (3) CAD (coronary artery disease) Priority: Secondary Status: Chronic Qualifiers: Coronary Disease-Associated Artery/Lesion type: [place] artery [place] vs. transplanted heart: [place] heart Associated angina: without angina Qualified Code(s): I25.10 - Atherosclerotic heart disease of [place] coronary artery without angina pectoris (4) CKD (chronic kidney disease) stage 3, GFR 30-59 ml/min Priority: Secondary Status: Chronic (5) Hypothyroidism Priority: Secondary Status: Chronic Qualifiers: Hypothyroidism type: unspecified Qualified Code(s): E03.9 - Hypothyroidism , unspecified (6) Anemia Priority: Primary Status: Acute Qualifiers: Anemia type: other cause Other causes of anemia: acute posthemorrhagic Qualified Code(s): D62 - Acute posthemorrhagic anemia (7) Essential hypertension Priority: Secondary Status: Chronic - Discharge Medications Prescriptions: HYDROcodone/Acet 5/325 mg [[place] 5-325 mg] 2 tab PO Q6H PRN #30 tablet PRN Reason: Pain Home Medications: Aspirin [Adult Low Dose Aspirin EC] 81 mg PO QPM 05/12/15 [History] Clopidogrel [Plavix] 75 mg PO QPM 05/12/15 [History] Metoprolol [Lopressor] 25 mg PO BID 05/12/15 [History] Nitroglycerin [Nitrostat] 0.4 mg SL Q5M PRN 05/12/15 [History] Simvastatin [Zocor] 40 mg PO QPM 05/12/15 [History] amLODIPine [Norvasc] 2.5 mg PO QAM 05/12/15 [History] Levothyroxine [Synthroid] 50 mcg PO QAM 08/28/15 [History] Furosemide [Lasix] 20 mg PO DAILY PRN 05/06/16 [History] Isosorbide MONOnitrate [Isosorbide Mononitrate ER] 120 mg PO DAILY 05/06/16 [ History] Omeprazole [PriLOSEC] 20 mg PO DAILY 12/01/16 [History] Fluorometholone 1 drop BOTH EYES QID 03/27/17 [History] HYDROcodone/Acet 5/325 mg [[place] 5-325 mg] 2 tab PO Q6H PRN #30 tablet 03/31/17 [Rx] Allergies/Adverse Reactions: 3 Allergy/AdvReac Type Severity Reaction Status Date / Time esomeprazole [From Nexium] AdvReac Chest Pain Verified 05/06/16 15:53 Hydromorphone [From Dilaudid] AdvReac Vomiting Verified 05/06/16 15:53 iron AdvReac Vomiting Verified 05/06/16 15:53 Procedures/tests Complete & Pending: Procedures Performed prior 72 hours Category Date Time Status ECG 12 lead ECG [ECG] Routine Y 03/30/17 04:12 Completed EKG [ECG 12 lead ECG] [ECG] Stat Y 03/30/17 04:00 Completed Date of admission: 03/26/17 21:04 Primary care physician: Garcia Thakkar Jr, MD Consults: 03/26/17 21:07 Consult to Hospitality Job Titles [CONS] Routine Reason for SW Consult: Please provide POA paperwork to family. Also assess for possible home needs for post-discharge planning. Patient wants [facility] 03/26/17 21:08 Consult to Occupational Therapy [CONS] Routine Comment: Evaluate, develop and implement POC Reason for Consult: Patient has fractured humerus of the left arm. Will require therapy post-surgery for rehabilitation. Please assess for post-discharge needs. 03/26/17 21:09 Consult to Physical Therapy [CONS] Routine Comment: Evaluate, develop and implement POC Reason for Consult: Patient has fractured humerus of the left arm. Will require therapy post-surgery for rehabilitation. Please assess for post-discharge needs. 03/27/17 06:22 Consult to Cardiology [CONS] Routine Comment: Consulting Provider: Cardiology [facility] Reason for Consult: pre op Call Completed: No 03/28/17 17:34 Consult to Occupational Therapy [CONS] Routine Comment: post shoulder surgery Reason for Consult: post shoulder surgery Consult to Physical Therapy [CONS] Routine Comment: post shoulder surgery Reason for Consult: post shoulder surgery RT Post Op Consult [CONS] Routine Discharging clinician: Idania Mahoney Anticipated date of discharge: 03/31/17 - Patient Status Disposition: Transfer SNF Condition: Fair Functional capacity at discharge: uses cane/walker Overall status at discharge: patient is progressing back to baseline - Discharge Instructions Follow Up With: Aurora Garcias PAC [Physician Ship Officer] - 04/19/17 8:00 am Jacek Rawls MD [Partnered Physician] - 05/10/17 9:15 am Sanaz Vaughn PAC [Physician Ship Officer] - 04/06/17 10:30 am Garcia Thakkar Jr, MD [Primary Care Provider] - Additional Instructions: Discharge Instructions: Total Shoulder Please call [facility] ([phone]), your Primary Care Physician, or report to the Emergency Room if you have any of the following symptoms: Nausea, vomiting, fever greater that 101.5, swelling, chest pain, shortness of breath, increased pain/redness/drainage/odor for your incision site, numbness/ tingling, or any other concerning symptoms. ACTIVITY: Always keep your arm in the sling. Do not raise your arm away from your body. Do not use your arm to help with getting in or out of bed. No weight bearing permitted. Only perform those exercises given to you by your therapist. MEDICATIONS: Upon discharge resume your home medications. Take all the medications as prescribed. Take a stool softener if taking narcotic pain medications. Stool softeners are only effective if you drink enough fluids. Drink 6-8 glass of water or fluids a day, unless this is not allowed for another health problem. Despite using stool softeners, if you haven't had a bowel movement in 3 days, please switch to a gentle laxative. Gentle laxatives are sold over the counter. You should have a bowel movement within 24 hours, if not call the office. You will be discharged from the hospital with a prescription for pain medication. You are encouraged to decrease the use of narcotic pain medication as tolerated. Should you require a refill, please call the office. [facility] prescribes narcotic pain medication for only 4-6 weeks after surgery. If you require pain medication beyond this time period, you may be referred to your Primary Care Physician or to the Pain Clinic for further evaluation. Plan ahead for refills on pain medication as many narcotics either need to be picked up at the office or mailed. It is best to call 48-72 hours in advance of needing a prescription refill so you don't run out of medication. To help control the post-operative pain, you may take NSAIDs (Aleve,Advil, Motrin, Ibuprofen, Naprosyn) or Tylenol as prescribed on the bottle in addition to the pain medication. WOUND CARE: Leave the dressing on for 7-10 days. You may change the dressing if it becomes saturated greater than 50%. Do not get the dressing wet at anytime. Wash your hands with antibacterial soap, rinse and dry prior to any wound care. If you have viktoriya the visiting nurse or rehab facility can remove the stapes 10-14 days after surgery and place steri-strips across the wound. Leave the steri-strips in place until they fall off on their own. You may let water from the shower run on top of the steri-strips. If you do not have a visiting nurse or rehab facility, you will need to return to the office at 10-14 days for the viktoriya to be removed. If you have itching or redness around the dressing call the office. FOLLOW-UP: Please follow up with your surgeon in the orthopedic clinic, as scheduled - Diet and Activity Activity: as per physical therapy, wear oxygen at all times Diet: low fat, low cholesterol, low salt diet, other (renal diet) Hospital course: Ms. Hall is a 81 year old female with the above medical problems who was admitted with left arm fracture after sustaining a mechanical fall. Left humerus x-ray showed mid shaft fracture. Orthopedics was consulted and patient underwent open reduction internal fixation of humeral fracture. Physical and occupational therapy evaluation was done and recommended placement in extended care facility for continued rehabilitation. professional services manager was consulted and patient is currently medically stable for this transfer. She was noted to have postoperative anemia and received 2 units PRBC transfusion with improvement in hemoglobin. - Time Spent with Patient Total time spent providing and/or coordinating discharge services: Greater than 30 minutes (45 min) - Constitutional Vitals: Temp Pulse Resp BP Pulse Ox 98.1 F 71 15 150/73 94 03/31/17 08:40 03/31/17 08:40 03/31/17 08:40 03/31/17 08:40 03/31/17 10:00 General appearance: Present: cooperative, A&O X 3, answers questions appropriately - Cardiovascular Cardiovascular exam: Present: RRR, +S1, +S2. Absent: diastolic murmur, gallop, rubs, systolic murmur - VTE Documentation of Mechanical Device: Intermittent pneumatic compression device
--- NOTE | 2017-03-31 13:06 | Physician Discharge Referral ---
ExtendedCare Referral Info [facility] Provider in Charge: Idania Mahoney Provider in Charge after Transfer: PCP Institutional Level of Care: Skilled - Diagnosis (1) Closed left humeral fracture Priority: Primary Status: Acute (2) HLD (hyperlipidemia) Priority: Secondary Status: Chronic (3) CAD (coronary artery disease) Priority: Secondary Status: Chronic (4) CKD (chronic kidney disease) stage 3, GFR 30-59 ml/min Priority: Secondary Status: Chronic (5) Hypothyroidism Priority: Secondary Status: Chronic (6) Anemia Priority: Primary Status: Acute (7) Essential hypertension Priority: Secondary Status: Chronic Expected Duration of Placement: 3 weeks Prognosis: Good Aware of Diagnosis: Patient, Family Aware of Prognosis: Patient, Family - Transfer Medications Prescriptions: HYDROcodone/Acet 5/325 mg [[place] 5-325 mg] 2 tab PO Q6H PRN #30 tablet PRN Reason: Pain Home Medications: Aspirin [Adult Low Dose Aspirin EC] 81 mg PO QPM 05/12/15 [History] Clopidogrel [Plavix] 75 mg PO DAILY 05/12/15 [History] Metoprolol [Lopressor] 25 mg PO BID 05/12/15 [History] Nitroglycerin [Nitrostat] 0.4 mg SL Q5M PRN 05/12/15 [History] Simvastatin [Zocor] 40 mg PO QPM 05/12/15 [History] amLODIPine [Norvasc] 2.5 mg PO QAM 05/12/15 [History] Levothyroxine [Synthroid] 50 mcg PO QAM 08/28/15 [History] Furosemide [Lasix] 20 mg PO DAILY PRN 05/06/16 [History] Isosorbide MONOnitrate [Isosorbide Mononitrate ER] 120 mg PO DAILY 05/06/16 [ History] Omeprazole [PriLOSEC] 20 mg PO DAILY 12/01/16 [History] Fluorometholone 1 drop BOTH EYES QID 03/27/17 [History] HYDROcodone/Acet 5/325 mg [[place] 5-325 mg] 2 tab PO Q6H PRN #30 tablet 03/31/17 [Rx] Allergies/Adverse Reactions: 3 Allergy/AdvReac Type Severity Reaction Status Date / Time esomeprazole [From Nexium] AdvReac Chest Pain Verified 12/22/16 15:53 Hydromorphone [From Dilaudid] AdvReac Vomiting Verified 05/06/16 15:53 iron AdvReac Vomiting Verified 05/06/16 15:53 - Respiratory Orders Oxygen / L per min (2L/min via NC) Smoking Cessation: Smoking cessation has been advised. For more information, call the [place] Tobacco Quit Line at 1-695-QOMH-NOW. - Advance Directives Code Status: Full Code - Mobility Orders Ambulate - Rehabiliation Orders Rehab Potential: Fair Rehab Orders: ROM Exercises, Evaluation for Physical Therapy, Evaluation for Occupational Therapy - Diet Orders Renal, Cardiac CERTIFICATION: I certify that the transfer of the above named patient to an Extended Care Facility is necessary for the continuing treatment of the diagnosis listed. The above information is true and accurate reflection of patient's current condition. Confidential - Redisclosure prohibited without a patient's written consent.
[2017-03-31 17:23] VITALS: BP 143/70
--- NOTE | 2017-04-01 06:15 | Electrocardiograph Report ---
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
== END 2017-03-31 18:45 | DRG 493 ==
LOC: 3NENU 16:25 → EMEROO 16:25 → 3NENU 19:18 → SUATTDRO 21:04
PROVIDERS: ADMIT Nurse Practitioner Family; ATTEND Internal Medicine

== ENCOUNTER 2018-09-27 05:18 | Inpatient (IN) ==
--- NOTE | 2018-09-27 05:26 | Emergency Department Note ---
Disposition Clinical Impression: Fall Qualifiers: Encounter type: initial encounter Qualified Code(s): W19.XXXA - Unspecified fall, initial encounter Disposition: Still a Patient Referrals: NONE,PCP [Non-Partnered Physician] - Forms: ED Satisfaction Letter Fall HPI - General Stated Complaint: fall Time Seen by Provider: 09/27/18 05:21 Source: patient, EMS Mode of arrival: EMS Limitations: no limitations Nursing Notes Reviewed: Yes Vital Signs Reviewed: Yes - History of Present Illness HPI Narrative: Patient presenting to the ED via EMS after fall. Patient got up in the middle the night to go to the bathroom and her left hip "gave out" and she fell face forward into a doorknob. No loss consciousness. Is on Plavix, but is not anticoagulated. Complaining of a mild headache, but her main complaint is left hip pain. Denies any weakness or tingling but states she cannot really move it or walk. Denies any chest pain, shortness breath, abdominal pain. No neck or back pain - Related Data Home Medications Medication Instructions Recorded Confirmed Aspirin [Adult Low Dose Aspirin EC] 81 mg PO QPM 05/12/15 11/02/17 Clopidogrel [Plavix] 75 mg PO QPM 05/12/15 11/02/17 Metoprolol [Lopressor] 25 mg PO BID 05/12/15 11/02/17 Nitroglycerin [Nitrostat] 0.4 mg SL Q5M PRN 05/12/15 11/02/17 Simvastatin [Zocor] 40 mg PO QPM 05/12/15 11/02/17 amLODIPine [Norvasc] 2.5 mg PO BID 05/12/15 11/02/17 Levothyroxine [Synthroid] 50 mcg PO QAM 08/28/15 11/02/17 Isosorbide MONOnitrate [Isosorbide 120 mg PO DAILY 05/06/16 11/02/17 Mononitrate ER] Omeprazole [PriLOSEC] 20 mg PO DAILY 12/01/16 11/02/17 CarBAMazepine XR [Tegretol Xr] 100 mg PO Q12HR 11/02/17 11/02/17 Previous Rx's Medication Instructions Recorded HYDROcodone/Acet 5/325 mg [[place] 1 tab PO Q4H PRN 3 Days #15 tab 07/31/17 5-325 mg] Benzonatate [Tessalon] 100 mg PO TID #15 capsule 08/07/18 Guaifenesin [Mucinex] 600 mg PO BID #30 tab.er.12h 08/07/18 Oseltamivir [Tamiflu] 75 mg PO BID #10 capsule 08/07/18 Allergies Allergy/AdvReac Type Severity Reaction Status Date / Time esomeprazole [From Nexium] AdvReac Chest Pain Verified 09/15/18 07:36 hydromorphone [From Dilaudid] AdvReac Vomiting Verified 09/15/18 07:36 iron AdvReac Vomiting Verified 09/15/18 07:36 Review of Systems: As reviewed in the HPI. All other systems reviewed are negative or normal. 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 PACKAGING SPECIALIST history: Reports: no APPLICATION PACKAGING SPECIALIST history - Social History Smoking Status: Never smoker Alcohol use: Reports: none Drug use: Reports: none Physical Exam - General Limitations: no limitations General appearance: alert, in no apparent distress - Head Head exam: other (Hematoma and laceration) - Eye Eye exam: Present: normal appearance, PERRL, EOMI - ENT ENT exam: normal exam, normal oropharynx, mucous membranes moist - Neck Neck exam: Present: normal inspection, full ROM, trachea midline - Chest Chest inspection: Present: normal inspection, symmetric chest wall rise - Respiratory Respiratory exam: Present: normal lung sounds bilaterally - Cardiovascular Cardiovascular exam: Present: regular rate, normal rhythm, normal heart sounds - Abdominal Exam Abdominal exam: Present: soft, Non-Tender. Absent: tenderness, distention, guarding, rebound, rigidity - Extremities Exam Extremities exam: Present: other (Positive deformity to the left hip around the greater trochanter, pain on log rolling, neurovascularly intact) - Expanded Lower Extremity Exam Hip/Pelvis exam: Present: pelvis stable - Back Exam Back exam: Present: normal inspection, full ROM. Absent: tenderness - Neurological Exam Neurological exam: Present: alert, oriented X3 - Psychiatric Psychiatric exam: Present: normal affect, normal mood - Skin Skin exam: Present: warm, dry, intact, normal color
[2018-09-27] MEDS ORDERED: *HR* FentaNYL (PF) 100 MCG/2 ML VIAL IVP ONE ×2 (06:12→07:38)
--- NOTE | 2018-09-27 06:15 | Emergency Department Note ---
Disposition Clinical Impression: Fall Qualifiers: Encounter type: initial encounter Qualified Code(s): W19.XXXA - Unspecified fall, initial encounter Disposition: Still a Patient Referrals: NONE,PCP [Non-Partnered Physician] - Forms: ED Satisfaction Letter General Adult HPI - General Chief complaint: ED Fall Stated complaint: fall Time Seen by Provider: 09/27/18 05:21 Source: patient, EMS Mode of arrival: EMS Limitations: no limitations - History of Present Illness Pain Scale: 7 - Related Data Home Medications Medication Instructions Recorded Confirmed Aspirin [Adult Low Dose Aspirin EC] 81 mg PO QPM 05/12/15 11/02/17 Clopidogrel [Plavix] 75 mg PO QPM 05/12/15 11/02/17 Metoprolol [Lopressor] 25 mg PO BID 05/12/15 11/02/17 Nitroglycerin [Nitrostat] 0.4 mg SL Q5M PRN 05/12/15 11/02/17 Simvastatin [Zocor] 40 mg PO QPM 05/12/15 11/02/17 amLODIPine [Norvasc] 2.5 mg PO BID 05/12/15 11/02/17 Levothyroxine [Synthroid] 50 mcg PO QAM 08/28/15 11/02/17 Isosorbide MONOnitrate [Isosorbide 120 mg PO DAILY 05/06/16 11/02/17 Mononitrate ER] Omeprazole [PriLOSEC] 20 mg PO DAILY 12/01/16 11/02/17 CarBAMazepine XR [Tegretol Xr] 100 mg PO Q12HR 11/02/17 11/02/17 Previous Rx's Medication Instructions Recorded HYDROcodone/Acet 5/325 mg [[place] 1 tab PO Q4H PRN 3 Days #15 tab 07/31/17 5-325 mg] Benzonatate [Tessalon] 100 mg PO TID #15 capsule 08/07/18 Guaifenesin [Mucinex] 600 mg PO BID #30 tab.er.12h 08/07/18 Oseltamivir [Tamiflu] 75 mg PO BID #10 capsule 08/07/18 Allergies Allergy/AdvReac Type Severity Reaction Status Date / Time esomeprazole [From Nexium] AdvReac Chest Pain Verified 09/15/18 07:36 hydromorphone [From Dilaudid] AdvReac Vomiting Verified 09/15/18 07:36 iron AdvReac Vomiting Verified 09/15/18 07:36 Past Medical History - Past Medical History Medical history: Reports: atrial fibrillation, coronary artery disease, GERD, hyperlipidemia, hypertension, seizures, thyroid disease, other Surgical history: Reports: angioplasty/stent, appendectomy, cataract, cholecystectomy, hysterectomy, orthopedic, other, sinus surgery, other Psychiatric history: Reports: no psych history CLINICAL TECHNOLOGIST history: Reports: no CLINICAL TECHNOLOGIST history - Social History Smoking Status: Never smoker Smokeless Tobacco Status: No Alcohol use: Reports: none Drug use: Reports: none Physical Exam - General Limitations: no limitations General appearance: alert, in no apparent distress Course - Reevaluation(s) Reevaluation #1: will sign out patinet to the day team (Dr. Grajeda), plan is to followup on the CT pelvis to rule out fracture. Time: 06:38 Vital Signs Temperature 98.3 F 09/27/18 05:22 Pulse Rate 92 09/27/18 05:22 Respiratory Rate 18 09/27/18 05:22 Blood Pressure 181/148 09/27/18 05:22 O2 Sat by Pulse Oximetry 99 09/27/18 05:22 Temperature 98.3 F 09/27/18 05:22 Pulse Rate 81 09/27/18 06:10 Respiratory Rate 18 09/27/18 06:10 Blood Pressure 156/88 09/27/18 06:10 O2 Sat by Pulse Oximetry 100 09/27/18 06:10 Oxygen Delivery Oxygen Delivery Room Air Attestation Statement - Attestation Attestation: I examined this patient and my medical decision-making was reviewed with the Resident Physician. I agree with the documented findings, disposition and treatment plan as described except to the extent set forth below. 83 year old female presnets ot e Ed s/p falling out of bed as she was going to go the bathroom this moring. She is on plavix and injured herself earlier in the week seocndary to falling out of bed Patinet has a developing hematoma as well on the left hip and there was concern for deformity although after inspection of the XR does not appear to be a fracture although she is having dificult with weight bearing. She also injured her head on thsi fall wihtout LOC. Patient on plavix and with a distratin injury present we will obtain a HCT and CT neck.
--- NOTE | 2018-09-27 07:06 | Emergency Department Note ---
START Narrative - START START: Agree with initial H&P: On my questioning with the patient and her daughter/RN at this facility present, the patient is generally active at home and lives alone, she fell a few weeks ago injuring her left hip area. She sustained a hematoma, she fell yesterday while going to the bathroom, she remembers the event and does not describe syncope. She sustained a head injury. She is on Plavix, no major bleeding is reported. The patient denies convulsions vomiting weakness or numbness the arms or legs. There is no history of chest pain shortness of breath vomiting diarrhea or acute back pain. No upper extremity pain or right lower extremity pain reported. She describes left-sided head pain and left hip pain. The patient was in her usual state of health prior to the event. General age-appropriate female lying supine nontoxic in appearance alert oriented and answering questions properly HEENT hematoma left scalp, no active bleeding, no deformity otherwise tympanic membranes clear bilaterally, maxillofacial structures intact pupils equal round reactive to light. Neck supple without evidence of anterior or posterior injury or pain with movement. CV S1 and S2 audible, extremities warm and well perfused without cyanosis or pedal edema. Lungs clear to auscultation bilaterally without wheezes rales or crackles. Abdomen soft no evidence of external trauma significant left lower abdominal tenderness appreciated. Upper extremities warm and well-perfused supple with no evidence of injury. Back inspected no trauma no pain to palpation throughout the thoracic or lumbar structures or posterior ribs. Some sacral area pain is noted palpation. Right lower extremities supple warm and well-perfused no injury. Left lower extremity very large hematoma left hip and femur area tense and painful to palpation. All extremities have good neurovascular neuromuscular tone with no evidence of vascular compromise. Neurologic muscle strength and sensation are generally intact in all 4 extremities cranial nerves II through XII are grossly intact. Impression: Frail elderly, anemia, multiple falls, left hip and femur hematoma, blunt head injury, left scalp hematoma, abdominal pain, ataxia secondary to left hip injury The patient is unable to ambulate at this time, she has a large hematoma in the hip and femoral area. She has had multiple falls and is at risk for recurrent falls. She is taking antiplatelet agents. She had fallen a few weeks ago and hurt her hip, she fell again and hurt her hip again, she has a tense hematoma in the left hip area, a type and screen has been ordered. Based on the patient's age, multiple falls, multiple injuries, and inability to ambulate, with the potential for a an expansile hematoma, I thought it would be appropriate to admit the patient to the hospital. I discussed case with the hospitalist on- call who has accepted the patient their care. The patient is agreeable.
[2018-09-27] MEDS ORDERED: *HR* HYDROmorphone (PF) 1 MG/ML SYRINGE IVP ONE (07:37)
[2018-09-27 07:38] LABS: Basophils % 0.3 %; Eosinophils # 0.2 K/mcL (0.0-0.6); Eosinophils % 2.2 %; Hematocrit 31.4 % (35.3-44.9); Hemoglobin 9.8 g/dL (11.5-15.4); Immature Granulocytes % 0.1 % (0-4); Lymphocytes % 14.3 %; Mean Corpuscular HGB Conc 31.2 g/dL (31.6-35.5); Mean Corpuscular Hemoglobin 27.8 pg (28.0-33.3); Mean Platelet Volume 8.5 fL (9.4-12.4); Monocytes # 0.4 K/mcL (0.0-1.3); Monocytes % 6.1 %; Neutrophils # 5.3 K/mcL (1.6-8.9); Platelet Count 204 K/mcL (140-400); Red Blood Count 3.53 M/mcL (3.82-4.97); Red Cell Distribution Width 13.9 % (11.5-14.5)
[2018-09-27] MEDS ORDERED: 0.9 % Sodium Chloride 1,000 ML IVC ONE (07:39)
[2018-09-27] MEDS ORDERED: Isovue-370 500 ML BOTTLE IVP ONE (07:39)
[2018-09-27 07:58] LABS: Alanine Aminotransferase 7 Units/L (7-52); Albumin/Globulin Ratio 1.7 (1.1-2.2); Alkaline Phosphatase 106 Units/L (34-104); Aspartate Amino Transferase 13 Units/L (13-39); BUN/Creatinine Ratio 16 (6-26); Bilirubin,Total 0.4 mg/dL (0.3-1.0); Blood Urea Nitrogen 20 mg/dL (8-23); Calcium 8.8 mg/dL (8.6-10.3); Carbon Dioxide 25 mEq/L (23-29); Chloride 108 mEq/L (98-107); Globulin 2.3 g/dL (2.4-3.5); Glucose 97 mg/dL (70-105); Osmolality,Calculated 289 (280-300); Potassium 4.2 mEq/L (3.5-5.1); Sodium 138 mEq/L (136-145); Total Protein 6.3 g/dL (6.4-8.9); Troponin I < 0.03 ng/mL (< 0.04); eGFR For Non-African Americans 42 (> 60)
[2018-09-27 09:27] LABS: Bilirubin,Urine Negative (Negative); Blood,Urine Trace (Negative); Clarity,Urine Clear (Clear); Color,Urine Yellow (Yellow); Glucose,Urine (UA) Normal (Normal); Ketones,Urine Negative (Negative); Leukocyte Esterase,Urine Negative (Negative); Nitrite,Urine Negative (Negative); Protein,Urine Negative (Neg-Trace); Specific Gravity,Urine 1.011 (1.010-1.025); Urobilinogen,Urine Normal (Normal)
[2018-09-27 09:49] LABS: Bacteria,Urine None Seen per hpf (None-Few); Hyaline Casts,Urine None Seen per lpf (None-Few); RBC,Urine 0-3 per hpf (0-3); Squamous Epithelial Cell,Urine Moderate per lpf (None-Few)
[2018-09-27 09:50] LABS: WBC,Urine 0-3 per hpf (0-3)
--- NOTE | 2018-09-27 10:35 | Electrocardiograph Report ---
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
--- NOTE | 2018-09-27 11:17 | Internal Med History&Physical ---
<Jordan Manley - Last Filed: 09/27/18 16:02> Date of Encounter: 09/27/18 Time of Encounter: 11:17 Internal Medicine - H&P: HPI Chief complaint: Recurrent falls Admitted From: Emergency Dept Plans for Post Hospital Care: [facility] History of present illness: Ms. Hall is a 83 year old female with a past medical history of hypertension, coronary artery disease, TIA, CKD stage 3, hypothyroidism, DDD, and previous fall 2 weeks ago resulting in a left hip hematoma that presented after losing her balance and falling again at home. She sustained a laceration to her parietal scalp but denies any loss of consciousness, palpitations, or cardiac arrhythmias. In the ED, CT brain revealed left parietal and occipital scalp contusions. No underlying displaced calvarial fracture or acute intracranial abnormality. CT left hip revealed an irregular multiloculated heterogeneous high attenuation collection in the subcutaneous fat with surrounding fat stranding measuring grossly 10.4 x 4.9 x 8.9 cm compatible with hematoma and likely some surrounding bruising. No evidence for fracture. Hemoglobin was 9.8, baseline HGB level is around 11. Patient's daughter is a nurse and is at bedside. Patient lives at home alone and has a walker. Past Med Surg Social Fam HX - Past Medical History Medical history: atrial fibrillation, coronary artery disease, GERD, hyperlipidemia, hypertension, seizures, thyroid disease, other Additional medical history: hiatal hernia, nocturnal seizures, hypothyroid Psychiatric history: no psych history - Past Surgical History Surgical History: angioplasty/stent, appendectomy, cataract, cholecystectomy, hysterectomy, orthopedic, other, sinus surgery, other Additional surgical history: Left humerus fx with ORIF - Social History Smoking Status: Never smoker Smokeless Tobacco Status: No Alcohol use: none Drug use: none - Family History Father Adopted: No Family Member Ethnicity: Non- Living Status: Hx Family Neurologic Disorders: Yes (Parkinson's disease) Brother Family Member Ethnicity: Non- Living Status: Hx Family Cardiac Disorders: Yes (ID, CVA) Sister Family Member Ethnicity: Non- Living Status: Hx Family Cardiac Disorders: Yes (CVA, CAD, HTN) Mother Adopted: No Family Member Ethnicity: Non- Living Status: Hx Family Cardiac Disorders: Yes (CAD, HTN, CVA, ID) Hx Family Endocrine Disorder: Yes (diabetes) Internal Medicine - H&P: Meds Aspirin [Lo-Dose Aspirin EC] 81 mg PO 1600 09/27/18 [History] Clopidogrel [Plavix] 75 mg PO DAILY 09/27/18 [History] Isosorbide MONOnitrate [Isosorbide Mononitrate ER] 120 mg PO 1200 09/27/18 [History] Levothyroxine [Synthroid] 50 mcg PO DAILY 09/27/18 [History] Metoprolol Tartrate [Lopressor] 25 mg PO BID 09/27/18 [History] Omeprazole [PriLOSEC] 20 mg PO 1200 09/27/18 [History] OxyCODONE/APAP 5/325 [Percocet 5/325 MG] 1 tab PO TID PRN 09/27/18 [History] carBAMazepine [CarBAMazepine] 100 mg PO QAM 09/27/18 [History] Allergy/AdvReac Type Severity Reaction Status Date / Time esomeprazole [From Nexium] AdvReac Chest Pain Verified 09/27/18 12:48 hydromorphone [From Dilaudid] AdvReac Vomiting Verified 09/27/18 12:48 iron AdvReac Vomiting Verified 09/27/18 12:48 All Systems PM: A 10-system review of systems was performed and is negative for pertinent findings except as documented above in the HPI. - Constitutional Constitutional: fatigue, falls, weakness, no anorexia, no chills, no fever(s) - EENT Eyes: no blurry vision, no diplopia Nose, mouth and throat: no sinus pain, no sore throat - Cardiovascular Cardiovascular ROS IM: no chest pain, no dyspnea - Respiratory Respiratory: no cough, no dyspnea - Gastrointestinal Gastrointestinal: abdominal pain, no diarrhea, no hematemesis, no hematochezia, no melena, no nausea, no vomiting - Genitourinary Genitourinary: flank pain, no dysuria, no urinary frequency, no urinary urgency - Musculoskeletal Musculoskeletal ROS IM: back pain, no numbness, no tingling - Integumentary Integumentary IM: no erythema, no new lesions - Neurological Neurological ROS: weakness, no numbness, no tingling - Psychiatric Psychiatric: no anxiety, no depression - Endocrine Endocrine IM: no polydipsia, no polyphagia, no polyuria - Hematologic/Lymphatic Hematologic/Lymphatic: no easy bleeding, no easy bruising - Constitutional Vitals: Temp Pulse Resp BP Pulse Ox 98.3 F 76 16 153/64 99 09/27/18 05:22 09/27/18 08:04 09/27/18 08:04 09/27/18 08:04 09/27/18 08:04 General appearance: Present: cooperative, mild distress, A&O X 3, pleasant, answers questions appropriately Exam: awake - Head Head exam: Present: normocephalic Additional comments: Nonbleeding 2cm scalp laceration left parietal scalp - Eye Eye exam: Present: EOMI, conjuntiva pink, sclera anicteric - ENT ENT exam: Present: mucous membranes dry, normal oropharynx - Neck Neck exam general surgery: Present: supple, trachea midline. Absent: lymphadenopathy - Respiratory Respiratory exam: Present: CTAB. Absent: accessory muscle use, rales, rhonchi, wheezes - Cardiovascular Cardiovascular exam: Present: RRR, +S1, +S2. Absent: diastolic murmur, gallop, rubs, systolic murmur - GI/Abdominal GI/Abdominal exam: Present: normal bowel sounds, soft, no peritoneal signs. Absent: distended, tenderness - Extremities Exam Extremities exam: Present: warm, radial pulses palpable and symmetrical. Absent: calf tenderness, cyanotic, pedal edema - Back Exam Back exam: Present: CVA tenderness (L), normal inspection - Neurological Exam Neurological exam: Present: CN II-XII intact, oriented X3, no focal deficits. Absent: facial droop, speech deficit - Psychiatric Psychiatric exam: Present: normal affect, normal mood - Skin Skin exam: Present: dry, erythema (Ecchymosis/tenderness left lateral hip), intact Internal Med - H&P Results - Labs CBC & Chem 7: 09/27/18 07:23 09/27/18 07:23 Labs: Short CBC 09/27/18 Range/Units 07:23 WBC 6.9 (4.3-11.1) K/mcL Hgb 9.8 L (11.5-15.4) g/dL Hct 31.4 L (35.3-44.9) % Plt Count 204 (140-400) K/mcL Neutrophils # 5.3 (1.6-8.9) K/mcL BMP 09/27/18 07:23 Sodium 138 Potassium 4.2 Chloride 108 H Carbon Dioxide 25 BUN 20 Creatinine 1.22 H Glucose 97 Calcium 8.8 Cardiac Enzymes 09/27/18 Range/Units 07:23 Troponin I < 0.03 (< 0.04) ng/mL Liver Function 09/27/18 Range/Units 07:23 Total Bilirubin 0.4 (0.3-1.0) mg/dL AST 13 (13-39) Units/L ALT 7 (7-52) Units/L Alkaline Phosphatase 106 H (34-104) Units/L Albumin 4.0 (3.5-5.7) g/dL Urine 09/27/18 Range/Units 08:13 Urine Color Yellow (Yellow) Urine Clarity Clear (Clear) Urine pH 6.0 (5.0-8.0) pH Units Ur Specific [place] 1.011 (1.010-1.025) Urine Protein Negative (Neg-Trace) mg/dL Urine Glucose (UA) Normal (Normal) mg/dL - Pulse Oximetry Interpretation Digit-Finger O2 Sat by Pulse Oximetry: 98 (On 2 L O2 via nasal cannula) Actions taken: none - Impressions ITS Impressions Head CT 09/27/18 05:22 IMPRESSION: Left parietal and occipital scalp contusions. No underlying displaced calvarial fracture or acute intracranial abnormality. D/ / Vinay Tom / Vinay Tom Interpreting Provider: Vinay Tom Cervical Spine CT 09/27/18 05:23 IMPRESSION: No acute abnormality of the cervical spine. Unchanged cervical spondylosis and grade 1 subluxations, as detailed above. No new subluxation. Postsurgical changes of C6-C7 ACDF without evidence of hardware complication. D/ / Vinay Tom / Vinay Tom Interpreting Provider: Vinay Tom Chest X-Ray 09/27/18 05:23 IMPRESSION: No acute cardiopulmonary findings. D/ / Vinay Tom / Vinay Tom Interpreting Provider: Vinay Tom Hip X-Ray 09/27/18 05:23 IMPRESSION: 1. Soft tissue swelling along the left hip without acute fracture or dislocation. 2. No acute osseous abnormality of the left knee. D/ / Barrett Jiménez MD / Barrett Jiménez MD Interpreting Provider: Barrett Jiménez MD Knee X-Ray 09/27/18 05:23 IMPRESSION: 1. Soft tissue swelling along the left hip without acute fracture or dislocation. 2. No acute osseous abnormality of the left knee. D/ / Barrett Jiménez MD / Barrett Jiménez MD Interpreting Provider: Barrett Jiménez MD Hip CT 09/27/18 06:37 IMPRESSION: No evidence for fracture. Irregular multiloculated heterogeneous high attenuation collection in the subcutaneous fat with surrounding fat stranding measuring grossly 10.4 x 4.9 x 8.9 cm compatible with hematoma and likely some surrounding bruising. No radiopaque foreign bodies or soft tissue gas. D/ / 09/27/2018 07:50:06 Easton Cain MD / lovely Interpreting Provider: Easton Cain MD Lumbar Spine CT 09/27/18 07:39 IMPRESSION: 1. No acute abnormality involving the lumbar spine. D/ / Joaquin Hanson MD / Joaquin Hanson MD Interpreting Provider: Joaquin Hanson MD Abdomen/Pelvis CT 09/27/18 08:50 IMPRESSION: Large soft tissue hematoma in the subcutaneous fat lateral to the left hip measuring approximately 8.2 x 5 x 8.6 cm in size. No evidence of acute traumatic pelvic fracture. No acute traumatic injury of the abdomen or pelvis otherwise. No evidence of urinary tract stones or hydronephrosis. D/ / 09/27/2018 10:16:12 Torsten Sam MD / brianna Interpreting Provider: Torsten Sam MD - Assessment and Plan (1) Recurrent falls Current Visit: Yes Status: Acute Assessment and plan: 83-year-old who lives at home alone presented after multiple recurrent falls. PT/OT consulted. Anticipate SNF placement. (2) Hematoma of left hip Current Visit: Yes Status: Acute Assessment and plan: CT left hip revealed an irregular multiloculated heterogeneous high attenuation collection in the subcutaneous fat with surrounding fat stranding measuring grossly 10.4 x 4.9 x 8.9 cm compatible with hematoma and likely some surrounding bruising. No evidence for fracture. Hemoglobin was 9.8, baseline, level is around 11. Continue close monitoring. Qualifiers: Encounter type: subsequent encounter Qualified Code(s): S70.02XD - Contusion of left hip, subsequent encounter (3) Anemia Current Visit: Yes Status: Chronic Assessment and plan: Hemoglobin was 9.8, baseline HGB level is around 11. Likely cause is large left hip hematoma Type and screen completed. Trend H&H Qualifiers: Anemia type: unspecified type Qualified Code(s): D64.9 - Anemia, unspecified (4) Essential hypertension Current Visit: Yes Status: Chronic Assessment and plan: BNP slightly elevated due to pain. Continue home meds. (5) CKD (chronic kidney disease) stage 3, GFR 30-59 ml/min Current Visit: Yes Status: Chronic Assessment and plan: Renal function at baseline. Continue gentle IV hydration. Continue monitoring. (6) CAD (coronary artery disease) Current Visit: No Status: Chronic Assessment and plan: Continue home meds. Qualifiers: Coronary Disease-Associated Artery/Lesion type: [place] artery [place] vs. transplanted heart: [place] heart Associated angina: without angina Qualified Code(s): I25.10 - Atherosclerotic heart disease of [place] coronary artery without angina pectoris (7) Hypothyroidism Current Visit: No Status: Chronic Assessment and plan: TSH level pending Continue home meds. Qualifiers: Hypothyroidism type: unspecified Qualified Code(s): E03.9 - Hypothyroidism, unspecified (8) DVT prophylaxis Current Visit: No Status: Acute Assessment and plan: Heparin subcutaneousTID - Time Spent With Patient Total time spent is greater than 50% in coordination of care (as documented) at patient's floor/unit and/or counseling patient: Patricia Cavazos - Last Filed: 09/29/18 04:41> Date of Encounter: 09/27/18 Internal Medicine - H&P: HPI History of present illness: Ms. Hall is a 83 year old female All Systems PM: A 10-system review of systems was performed and is negative for pertinent findings except as documented above in the HPI. - Constitutional Vitals: Temp Pulse Resp BP Pulse Ox 98 F 88 19 129/69 97 09/29/18 04:14 09/29/18 04:14 09/29/18 04:14 09/29/18 04:14 09/29/18 04:14 Internal Med - H&P Results - Labs CBC & Chem 7: 09/28/18 05:24 09/28/18 05:24 Labs: Short CBC 09/28/18 Range/Units 05:24 WBC 4.5 (4.3-11.1) K/mcL Hgb 8.6 L (11.5-15.4) g/dL Hct 28.1 L (35.3-44.9) % Plt Count 172 (140-400) K/mcL BMP 09/28/18 05:24 Sodium 139 Potassium 4.5 Chloride 108 H Carbon Dioxide 23 BUN 16 Creatinine 1.10 Glucose 93 Calcium 8.8 - Impressions ITS Impressions Head CT 09/27/18 05:22 IMPRESSION: Left parietal and occipital scalp contusions. No underlying displaced calvarial fracture or acute intracranial abnormality. D/ / Vinay Tom / Vinay Tom Interpreting Provider: Vinay Tom Cervical Spine CT 09/27/18 05:23 IMPRESSION: No acute abnormality of the cervical spine. Unchanged cervical spondylosis and grade 1 subluxations, as detailed above. No new subluxation. Postsurgical changes of C6-C7 ACDF without evidence of hardware complication. D/ / Vinay Tom / Vinay Tom Interpreting Provider: Vinay Tom Chest X-Ray 09/27/18 05:23 IMPRESSION: No acute cardiopulmonary findings. D/ / Vinay Tom / Vinay Tom Interpreting Provider: Vinay Tom Hip X-Ray 09/27/18 05:23 IMPRESSION: 1. Soft tissue swelling along the left hip without acute fracture or dislocation. 2. No acute osseous abnormality of the left knee. D/ / Barrett Jiménez MD / Barrett Jiménez MD Interpreting Provider: Barrett Jiménez MD Knee X-Ray 09/27/18 05:23 IMPRESSION: 1. Soft tissue swelling along the left hip without acute fracture or dislocation. 2. No acute osseous abnormality of the left knee. D/ / Barrett Jiménez MD / Barrett Jiménez MD Interpreting Provider: Barrett Jiménez MD Hip CT 09/27/18 06:37 IMPRESSION: No evidence for fracture. Irregular multiloculated heterogeneous high attenuation collection in the subcutaneous fat with surrounding fat stranding measuring grossly 10.4 x 4.9 x 8.9 cm compatible with hematoma and likely some surrounding bruising. No radiopaque foreign bodies or soft tissue gas. D/ / 09/27/2018 07:50:06 Easton Cain MD / lovely Interpreting Provider: Easton Cain MD Lumbar Spine CT 09/27/18 07:39 IMPRESSION: 1. No acute abnormality involving the lumbar spine. D/ / Joaquin Hanson MD / Joaquin Hanson MD Interpreting Provider: Joaquin Hanson MD Abdomen/Pelvis CT 09/27/18 08:50 IMPRESSION: Large soft tissue hematoma in the subcutaneous fat lateral to the left hip measuring approximately 8.2 x 5 x 8.6 cm in size. No evidence of acute traumatic pelvic fracture. No acute traumatic injury of the abdomen or pelvis otherwise. No evidence of urinary tract stones or hydronephrosis. D/ / 09/27/2018 10:16:12 Torsten Sam MD / marcus huston Interpreting Provider: Torsten Sam MD - Assessment and Plan (1) DVT prophylaxis Current Visit: No Status: Acute (2) CAD (coronary artery disease) Current Visit: No Status: Chronic Qualifiers: Coronary Disease-Associated Artery/Lesion type: [place] artery [place] vs. transplanted heart: [place] heart Associated angina: without angina Qualified Code(s): I25.10 - Atherosclerotic heart disease of [place] coronary artery without angina pectoris (3) CKD (chronic kidney disease) stage 3, GFR 30-59 ml/min Current Visit: Yes Status: Chronic (4) Hypothyroidism Current Visit: No Status: Chronic Qualifiers: Hypothyroidism type: unspecified Qualified Code(s): E03.9 - Hypothyroidism, unspecified (5) Anemia Current Visit: Yes Status: Chronic Qualifiers: Anemia type: unspecified type Qualified Code(s): D64.9 - Anemia, unspecif ied (6) Essential hypertension Current Visit: Yes Status: Chronic (7) Recurrent falls Current Visit: Yes Status: Acute (8) Hematoma of left hip Current Visit: Yes Status: Acute Qualifiers: Encounter type: subsequent encounter Qualified Code(s): S70.02XD - Contusion of left hip, subsequent encounter - Time Spent With Patient Total time spent is greater than 50% in coordination of care (as documented) at patient's floor/unit and/or counseling patient: - Attending Attestation I personally and independently interviewed and examined the patient, and I reviewed the patient's medical records. I am in agreement with the assessment and proposed treatment plan. I discussed my findings and recommendation with the patient and answer his questions. The patient's medical records were edited to accurately reflect this encounter.
[2018-09-27] MEDS ORDERED: Naloxone 0.4 MG/ML INJ IVP PRN (11:37)
[2018-09-27] MEDS ORDERED: Acetaminophen 325 MG TABLET PO PRN (11:37)
[2018-09-27] MEDS ORDERED: Ondansetron 4 MG/2 ML VIAL IVP PRN (11:37)
[2018-09-27] MEDS ORDERED: *HR* HYDROcodone/Acet 5/325 mg TABLET PO PRN (11:37)
[2018-09-27] MEDS ORDERED: traMADol 50 MG TABLET PO PRN (11:37)
[2018-09-27] MEDS ORDERED: 0.9 % Sodium Chloride 1,000 ML IVC SCH (11:45)
[2018-09-27] MEDS: *HR* OxyCODONE/APAP 5/325 TABLET PO PRN ×2 (13:14→19:32)
[2018-09-27] MEDS: *HR* Heparin 5,000 UNIT/ML VIAL SQ SCH ×2 (13:14→22:20)
[2018-09-27] MEDS: *HR* HYDROcodone/Acet 5/325 mg TABLET PO PRN (14:59)
[2018-09-27 15:15] LABS: Magnesium 1.8 mg/dL (1.6-2.6); Prothrombin Time 11.6 Seconds (9.4-12.1)
[2018-09-27] MEDS ORDERED: carBAMazepine 200 MG TABLET PO ONE ×2 (17:18)
[2018-09-27 20:36] LABS: Hematocrit 29.7 % (35.3-44.9); Mean Corpuscular HGB Conc 30.3 g/dL (31.6-35.5); Mean Corpuscular Hemoglobin 27.5 pg (28.0-33.3); Mean Corpuscular Volume 90.8 fL (83.0-100.0); Mean Platelet Volume 8.8 fL (9.4-12.4); Platelet Count 209 K/mcL (140-400); Red Blood Count 3.27 M/mcL (3.82-4.97); Red Cell Distribution Width 14.2 % (11.5-14.5)
[2018-09-28] MEDS: *HR* OxyCODONE/APAP 5/325 TABLET PO PRN ×3 (05:57→20:25)
[2018-09-28] MEDS: *HR* Heparin 5,000 UNIT/ML VIAL SQ SCH ×3 (05:58→21:42)
[2018-09-28 06:27] LABS: Hematocrit 28.1 % (35.3-44.9); Hemoglobin 8.6 g/dL (11.5-15.4); Mean Corpuscular HGB Conc 30.6 g/dL (31.6-35.5); Mean Corpuscular Hemoglobin 27.6 pg (28.0-33.3); Mean Corpuscular Volume 90.1 fL (83.0-100.0); Mean Platelet Volume 8.6 fL (9.4-12.4); Platelet Count 172 K/mcL (140-400); Red Blood Count 3.12 M/mcL (3.82-4.97); Red Cell Distribution Width 14.1 % (11.5-14.5)
[2018-09-28 06:49] LABS: Calcium 8.8 mg/dL (8.6-10.3); Potassium 4.5 mEq/L (3.5-5.1)
--- NOTE | 2018-09-28 09:50 | Internal Med Progress Note ---
Hospitalist Progress Note - Encounter Date of Encounter: 09/28/18 Time of Encounter: 09:50 - Subjective Interval History: Patient seen and examined this morning at bedside. No acute overnight events. Complains of left thigh pain. Denies any nausea vomiting lightheadedness chest pain difficulty breathing. - Exam Vitals: Temp Pulse Resp BP Pulse Ox 97.6 F 79 15 134/77 100 09/28/18 06:14 09/28/18 06:14 09/28/18 06:14 09/28/18 06:14 09/28/18 06:14 Exam: General: In no acute distress. Respiratory exam: CTAB. no accessory muscle use, rales, rhonchi, wheezes Cardiovascular exam: RRR, +S1, +S2. no murmur, gallop, rubs. GI/Abdominal exam: Non-tender, Non-distended, normal bowel sounds, soft, no peritoneal signs. Extremities exam: no pedal edema, pulses palpable in b/l lower extremities. no calf tenderness, large bruise and hematoma noted on Lt outer thigh Neurological exam: CN II-XII intact, AO X3, no focal deficits. Skin exam: bruise on lt thigh and small laceration on Lt side of head. - Assessment and Plan (1) DVT prophylaxis Current Visit: No Status: Acute (2) CAD (coronary artery disease) Current Visit: No Status: Chronic (3) CKD (chronic kidney disease) stage 3, GFR 30-59 ml/min Current Visit: Yes Status: Chronic (4) Hypothyroidism Current Visit: No Status: Chronic (5) Anemia Current Visit: Yes Status: Chronic (6) Essential hypertension Current Visit: Yes Status: Chronic (7) Recurrent falls Current Visit: Yes Status: Acute (8) Hematoma of left hip Current Visit: Yes Status: Acute - Summary of Assessment and Plan Summary of Assessment and Plan: Assessment Recurrent falls Hematoma of left thigh Anemia Hypertension Hypothyroidism CAD CKD Plan - Patient will need continued inpatient monitoring for hemoglobin as she may bleed more into her hematoma given she was in aspirin and Plavix - Patient likely had a mechanical fall based on her description. However she did mention she had some dizziness on and off before. We will consult cardiology for possible arrhythmias. We will keep on telemetry and obtain orthostatic vitals - Monitor hemoglobin closely. We will hold until seen by cardiology whether we might be able to hold Plavix, however she did have stent less than a year ago. - PT/OT consultation - Continue home Tegretol, Synthroid, aspirin, statin and metoprolol. - Time Spent with Patient Total time spent is greater than 50% in coordination of care (as documented) at patient's floor/unit and/or counseling patient: Internal Medicine: Result - Labs CBC & Chem 7: 09/28/18 05:24 09/28/18 05:24 Labs: Short CBC 09/27/18 09/28/18 Range/Units 20:11 05:24 WBC 6.5 4.5 (4.3-11.1) K/mcL Hgb 9.0 L 8.6 L (11.5-15.4) g/dL Hct 29.7 L 28.1 L (35.3-44.9) % Plt Count 209 172 (140-400) K/mcL BMP 09/28/18 05:24 Sodium 139 Potassium 4.5 Chloride 108 H Carbon Dioxide 23 BUN 16 Creatinine 1.10 Glucose 93 Calcium 8.8 - ABG Interpretation ABG results: PT/INR, D-dimer PT 11.6 Seconds (9.4-12.1) 09/27/18 13:11 - Impressions Impressions Lumbar Spine CT 09/27/18 07:39 IMPRESSION: 1. No acute abnormality involving the lumbar spine. D/ / Joaquin Hanson MD / Joaquin Hanson MD Interpreting Provider: Joaquin Hanson MD Abdomen/Pelvis CT 09/27/18 08:50 IMPRESSION: Large soft tissue hematoma in the subcutaneous fat lateral to the left hip measuring approximately 8.2 x 5 x 8.6 cm in size. No evidence of acute traumatic pelvic fracture. No acute traumatic injury of the abdomen or pelvis otherwise. No evidence of urinary tract stones or hydronephrosis. D/ / 09/27/2018 10:16:12 Torsten Sam MD / brianna Interpreting Provider: Torsten Sam MD Consult Discharge Plan - Plan Referrals: Garcia Thakkar Jr, MD [Primary Care Provider] - (2) CAD (coronary artery disease) Qualifiers: Coronary Disease-Associated Artery/Lesion type: [place] artery [place] vs. transplanted heart: [place] heart Associated angina: without angina Qualified Code(s): I25.10 - Atherosclerotic heart disease of [place] coronary artery without angina pectoris (4) Hypothyroidism Qualifiers: Hypothyroidism type: unspecified Qualified Code(s): E03.9 - Hypothyroidism, unspecified (5) Anemia Qualifiers: Anemia type: unspecified type Qualified Code(s): D64.9 - Anemia, unspecified (8) Hematoma of left hip Qualifiers: Encounter type: subsequent encounter Qualified Code(s): S70.02XD - Contusion of left hip, subsequent encounter
[2018-09-28] MEDS: carBAMazepine 200 MG TABLET PO SCH (10:22)
[2018-09-28] MEDS: *HR* HYDROcodone/Acet 5/325 mg TABLET PO PRN (10:22)
[2018-09-28] MEDS: Isosorbide MONOnitrate (24 HR) 60 MG TAB.ER.24H PO SCH (10:22)
--- NOTE | 2018-09-28 14:53 | Cardiology Consult Note ---
Date of Encounter: 09/28/18 Time of Encounter: 14:46 Assessment and Plan (1) Recurrent falls Current Visit: Yes Status: Acute Per cardiology: -Admitted with recurrent falls. -Falls appear to be mechanical in nature. No symptoms of orthostasis. -Recommend patient discontinue pain medication at night. -Management per primary service. (2) CAD (coronary artery disease) Current Visit: No Status: Chronic Per cardiology: -Known CAD s/p [facility] 10/2017 with 60% prox LAD FFR positive with FRANCK placed, 50-60% mid LAD, 90% ramus small vessel, 30% prox RCA, 40% RPDA. -Denies chest pain, shortness of breath. -Had been on asa and plavix in outpatient setting, however held due to thigh he matoma, anemia. On BB. -TTE 08/2017 with LVEF preserved, no wall motion abnormalities. -Discussed and reviewed with , with PCI less than one year ago, will resume asa and plavix due to risk of stent thrombosis. Monitor H/H closely. -Patient reported myalgias with zocor, will stop zocor. Recommend pravachol 20mg at discharge. Qualifiers: Coronary Disease-Associated Artery/Lesion type: [place] artery [place] vs. transplanted heart: [place] heart Associated angina: without angina Qualified Code(s): I25.10 - Atherosclerotic heart disease of [place] coronary artery without angina pectoris Discussion w patient/family: The assessment and plan as outlined above was discussed with the patient and/or family members who expressed understanding and agreement. All questions were answered. Thank you for involving us in the care of your patient. Please call with any questions. Discussed and reviewed with History of Present Illness Consult date: 09/28/18 Requesting physician: Rusty Haynes Consult reason: CAD Chief complaint: fall History of present illness: Ms. aHll is a 83 year old female with a relevant past medical history of CAD s/p PCI, NH, HTN, GERD, seizures, HTN, peripheral neuropathy, who presented to [facility] after a fall. Patient reports 2 weeks ago, was getting out of bed and slid onto the floor. Denies dizziness, lightheadedness, syncope, or near syncope. States her feet just slid on the floor. Then patient had another fall. Patient states she was getting out of her chair when she lost her balance and fell. Denies dizziness, lightheadedness, syncope, or near syncope. Patient denies chest pain. Deneis shortness of breath. Past Med Surg Social Fam HX - Past Medical History Attestation: Yes The following information was validated with the patient. Source: patient, old records reviewed Medical history: atrial fibrillation, coronary artery disease, GERD, hype rlipidemia, hypertension, myocardial infarction, seizures, thyroid disease, other Additional medical history: Patient states it has been many years since last seizure. Psychiatric history: depression - Past Surgical History Surgical History: angioplasty/stent, appendectomy, cataract, cholecystectomy, hysterectomy, orthopedic, other, sinus surgery, other Additional surgical history: Left humerus fx with ORIF - Social History Smoking Status: Never smoker Smokeless Tobacco Status: No Alcohol use: none Drug use: none - Family History Father Adopted: No Family Member Ethnicity: Non- Living Status: Hx Family Neurologic Disorders: Yes (Parkinson's disease) Brother Family Member Ethnicity: Non- Living Status: Hx Family Cardiac Disorders: Yes (NH, CVA) Sister Family Member Ethnicity: Non- Living Status: Hx Family Cardiac Disorders: Yes (CVA, CAD, HTN) Mother Adopted: No Family Member Ethnicity: Non- Living Status: Hx Family Cardiac Disorders: Yes Hx Family Endocrine Disorder: Yes (DM T2) Medications and Allergies Aspirin [Lo-Dose Aspirin EC] 81 mg PO 1600 09/27/18 [History] Clopidogrel [Plavix] 75 mg PO DAILY 09/27/18 [History] Isosorbide MONOnitrate [Isosorbide Mononitrate ER] 120 mg PO 1200 09/27/18 [History] Levothyroxine [Synthroid] 50 mcg PO DAILY 09/27/18 [History] Metoprolol Tartrate [Lopressor] 25 mg PO BID 09/27/18 [History] Omeprazole [PriLOSEC] 20 mg PO 1200 09/27/18 [History] OxyCODONE/APAP 5/325 [Percocet 5/325 MG] 1 tab PO TID PRN 09/27/18 [History] carBAMazepine [CarBAMazepine] 100 mg PO QAM 09/27/18 [History] Allergy/AdvReac Type Severity Reaction Status Date / Time esomeprazole [From Nexium] AdvReac Chest Pain Verified 09/27/18 12:48 hydromorphone [From Dilaudid] AdvReac Vomiting Verified 09/27/18 12:48 iron AdvReac Vomiting Verified 09/27/18 12:48 All Systems Review: The remainder of the systems were reviewed and are negative - Constitutional Constitutional: frequent falls - Cardiovascular Cardiovascular: as per HPI Physical Examination Vital Signs Temperature 98.3 F 09/27/18 05:22 Pulse Rate 92 09/27/18 05:22 Respiratory Rate 18 09/27/18 05:22 Blood Pressure 181/148 09/27/18 05:22 O2 Sat by Pulse Oximetry 99 09/27/18 05:22 Temperature 97.9 F 09/28/18 10:18 Pulse Rate 89 09/28/18 10:18 Respiratory Rate 15 09/28/18 10:18 Blood Pressure 99/57 09/28/18 10:18 O2 Sat by Pulse Oximetry 96 09/28/18 10:18 Oxygen Delivery Oxygen Delivery Nasal Cannula General: Conversant, No Apparent Distress HEENT: Atraumatic, Normocephaly, Mucus Membranes Moist Neck: No JVD, Normal carotid pulses Cardiac: Reg Rate and Rhythm, Normal S1 and S2, No Murmur Lungs: Normal Breath Sounds, No Wheeze, Rales, Rhonchi Neuro: Alert and responsive, No focal deficits noted Abdomen: Soft, Non-Tender Skin: No rashes noted on visualized skin, Other (Bruising noted to left outer thigh. ) Musculoskeletal: No Chest Wall Tenderness Extremities: No Clubbing, No Cyanosis, No Edema, Normal Pulses Results 09/28/18 05:24 09/28/18 05:24 Lab Results Active Medications Acetaminophen (Tylenol) 650 mg PO Q6HR PRN PRN Reason: Mild Pain/Fever Stop: 03/29/19 11:38 Hydrocodone Bitart/Acetaminophen ([place] 5-325 Mg) 1 tab PO Q6HR PRN PRN Reason: moderate pain Stop: 03/29/19 11:38 Last Admin: 09/28/18 10:22 Dose: 1 tab Documented by: Carbamazepine (Tegretol) 200 mg PO DAILY [facility]; Protocol Stop: 03/30/19 09:01 Last Admin: 09/28/18 10:22 Dose: 200 mg Documented by: Docusate Sodium (Colace) 100 mg PO BID PRN PRN Reason: Constipation Stop: 03/29/19 21:01 Last Admin: 09/27/18 13:14 Dose: 100 mg Documented by: Heparin Sodium (Porcine) (Heparin) 5,000 unit SQ Q8HCO [facility] Stop: 03/29/19 14:01 Last Admin: 09/28/18 13:57 Dose: 5,000 unit Documented by: Isosorbide Mononitrate (Imdur) 120 mg PO DAILY [facility] Stop: 03/30/19 09:01 Last Admin: 09/28/18 10:22 Dose: 120 mg Documented by: Levothyroxine Sodium (Synthroid) 50 mcg PO 0630 [facility] Stop: 03/30/19 06:31 Last Admin: 09/28/18 05:57 Dose: 50 mcg Documented by: Metoprolol Tartrate (Lopressor) 50 mg PO DAILY [facility] Stop: 03/29/19 11:46 Last Admin: 09/28/18 10:22 Dose: 50 mg Documented by: Naloxone HCl (Narcan) 0.4 mg IVP Q2MPRN PRN PRN Reason: SEE COMMENTS Stop: 03/29/19 11:38 Omeprazole (Prilosec) 20 mg PO DAILY [facility]; Protocol Stop: 03/29/19 11:46 Last Admin: 09/28/18 10:21 Dose: 20 mg Documented by: Ondansetron HCl (Zofran) 4 mg IVP Q6HR PRN PRN Reason: Nausea And Vomiting Stop: 03/29/19 11:38 Oxycodone/Acetaminophen (Percocet 5/325) 1 each PO Q6HR PRN PRN Reason: Severe Pain Stop: 03/29/19 11:44 Last Admin: 09/28/18 13:57 Dose: 1 each Documented by: Laboratory Tests 07/21/17 01/17/18 09/28/18 11:58 07:18 05:24 Hgb 10.8 L 11.5 8.6 L Creatinine 09/28/18 05:24 Hgb Creatinine 1.10 - Imaging and Cardiology Chest Xray: report reviewed Echo: report reviewed Cardiac cath: report reviewed - EKG Interpretation EKG results cardiology: personally reviewed (ECG with SR, HR 76.) Consult Discharge Plan - Plan Referrals: Garcia Thakkar Jr, MD [Primary Care Provider] -
[2018-09-28] MEDS ORDERED: carBAMazepine 200 MG TABLET PO ONE (17:11)
[2018-09-28] MEDS: Aspirin Enteric Coated 81 MG Tablet PO SCH (21:42)
[2018-09-29] MEDS: *HR* Heparin 5,000 UNIT/ML VIAL SQ SCH ×3 (06:10→21:03)
[2018-09-29 07:52] LABS: Hematocrit 26.8 % (35.3-44.9); Hemoglobin 8.3 g/dL (11.5-15.4)
[2018-09-29] MEDS: Isosorbide MONOnitrate (24 HR) 60 MG TAB.ER.24H PO SCH (09:55)
[2018-09-29] MEDS: carBAMazepine 200 MG TABLET PO SCH (09:56)
[2018-09-29] MEDS: *HR* HYDROcodone/Acet 5/325 mg TABLET PO PRN ×2 (09:56→19:00)
[2018-09-29] MEDS: Aspirin Enteric Coated 81 MG Tablet PO SCH (09:56)
[2018-09-29] MEDS: *HR* OxyCODONE/APAP 5/325 TABLET PO PRN (13:44)
--- NOTE | 2018-09-29 16:00 | Internal Med Progress Note ---
Hospitalist Progress Note - Encounter Date of Encounter: 09/29/18 Time of Encounter: 12:57 - Subjective Interval History: Patient seen and examined this morning at bedside. No acute overnight events. Denies any chest pain or difficulty breathing. Complains of left thigh pain that is not completely controlled. Denies any other complain. - Exam Vitals: Temp Pulse Resp BP Pulse Ox 98.2 F 73 16 145/62 95 09/29/18 11:43 09/29/18 11:43 09/29/18 11:43 09/29/18 11:43 09/29/18 11:43 Exam: General: In no acute distress. Respiratory exam: CTAB. no accessory muscle use, rales, rhonchi, wheezes Cardiovascular exam: RRR, +S1, +S2. no murmur, gallop, rubs. GI/Abdominal exam: Non-tender, Non-distended, normal bowel sounds, soft, no peritoneal signs. Extremities exam: no pedal edema, pulses palpable in b/l lower extremities. no calf tenderness. large bruise and hematoma noted on Lt outer thigh, does not appear to have increased in size. Neurological exam: CN II-XII intact, AO X3, no focal deficits. Skin exam: bruise on lt thigh and small laceration on Lt side of head. - Assessment and Plan (1) DVT prophylaxis Current Visit: No Status: Acute (2) CAD (coronary artery disease) Current Visit: No Status: Chronic (3) CKD (chronic kidney disease) stage 3, GFR 30-59 ml/min Current Visit: Yes Status: Chronic (4) Hypothyroidism Current Visit: No Status: Chronic (5) Anemia Current Visit: Yes Status: Chronic (6) Essential hypertension Current Visit: Yes Status: Chronic (7) Recurrent falls Current Visit: Yes Status: Acute (8) Hematoma of left hip Current Visit: Yes Status: Acute - Summary of Assessment and Plan Summary of Assessment and Plan: Assessment Recurrent falls Hematoma of left thigh Anemia Hypertension HLD Hypothyroidism CAD CKD Plan - Patient will need to be continued on aspirin and plavix. Will monitor patient closely for hematoma expansion and drop in hemoglobin. Hematoma stable, no further intervention. Hb downtrending but more or less stable will transfuse if <8. - Patient likely had a mechanical fall. my have orthostatic based on vitals. Also on percocet at night. 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 - Zocor to be changeed to pravastatin on discharge due to myalgia - PT/OT consultation recommend swing bed. Patient is unsafe to go home as lives alone. Will have placement by tuesday. - Continue home Tegretol, Synthroid, aspirin and metoprolol. - Time Spent with Patient Total time spent is greater than 50% in coordination of care (as documented) at patient's floor/unit and/or counseling patient: Internal Medicine: Result - Labs CBC & Chem 7: 09/29/18 07:03 09/28/18 05:24 Labs: Short CBC 09/29/18 Range/Units 07:03 Hgb 8.3 L (11.5-15.4) g/dL Hct 26.8 L (35.3-44.9) % - ABG Interpretation ABG results: PT/INR, D-dimer PT 11.6 Seconds (9.4-12.1) 09/27/18 13:11 - Impressions Impressions Abdomen/Pelvis CT 09/27/18 08:50 IMPRESSION: Large soft tissue hematoma in the subcutaneous fat lateral to the left hip measuring approximately 8.2 x 5 x 8.6 cm in size. No evidence of acute traumatic pelvic fracture. No acute traumatic injury of the abdomen or pelvis otherwise. No evidence of urinary tract stones or hydronephrosis. D/ / 09/27/2018 10:16:12 Torsten Sam MD / brianna Interpreting Provider: Torsten Sam MD Consult Discharge Plan - Plan Referrals: Garcia Thakkar Jr, MD [Primary Care Provider] - (2) CAD (coronary artery disease) Qualifiers: Coronary Disease-Associated Artery/Lesion type: [place] artery [place] vs. transplanted heart: [place] heart Associated angina: without angina Qualified Code(s): I25.10 - Atherosclerotic heart disease of [place] coronary artery without angina pectoris (4) Hypothyroidism Qualifiers: Hypothyroidism type: unspecified Qualified Code(s): E03.9 - Hypothyroidism, unspecified (5) Anemia Qualifiers: Anemia type: unspecified type Qualified Code(s): D64.9 - Anemia, unspecified (8) Hematoma of left hip Qualifiers: Encounter type: subsequent encounter Qualified Code(s): S70.02XD - Contusion of left hip, subsequent encounter
[2018-09-30 02:13] LABS: Hematocrit 25.3 % (35.3-44.9); Hemoglobin 7.9 g/dL (11.5-15.4)
[2018-09-30 02:32] LABS: Calcium 8.4 mg/dL (8.6-10.3); Potassium 4.2 mEq/L (3.5-5.1)
[2018-09-30] MEDS: *HR* HYDROcodone/Acet 5/325 mg TABLET PO PRN ×3 (04:19→23:55)
[2018-09-30] MEDS: *HR* Heparin 5,000 UNIT/ML VIAL SQ SCH (06:19)
[2018-09-30 08:35] LABS: Thyroid Stimulating Hormone 1.105 mcIU/mL (0.340-5.600)
[2018-09-30] MEDS: carBAMazepine 200 MG TABLET PO SCH (09:03)
[2018-09-30] MEDS: Aspirin Enteric Coated 81 MG Tablet PO SCH (09:04)
[2018-09-30] MEDS: Isosorbide MONOnitrate (24 HR) 60 MG TAB.ER.24H PO SCH (09:04)
--- NOTE | 2018-09-30 14:09 | Internal Med Progress Note ---
Hospitalist Progress Note - Encounter Date of Encounter: 09/30/18 Time of Encounter: 13:55 - Subjective Interval History: Pt today says she is doing well, although does still have episodic lancinating pains in L thigh at site of hematoma from time to time which are uncomfortable. Says she has quite the bruise on her lateral thigh. She otherwise denies l ightheadedness, THAPA, N/V/D, CP, palpitations, or SOB. - Exam Vitals: Temp Pulse Resp BP Pulse Ox 98.5 F 82 16 137/72 96 09/30/18 10:38 09/30/18 10:38 09/30/18 10:38 09/30/18 10:38 09/30/18 10:38 Exam: General: NAD, good eye contact, well appearing, elderly HEENT: L head with bump and small laceration Thoracic: Normal breath sounds b/l, no wheezing or crackles Cardio: Normal S1 and S2, regular rate and rhythm Abdomen: Soft, nontender Extremities: Warm, well perfused. DP pulses 2+ b/l. No edema. Skin: L thigh w extensive bruising and swelling although appears to be progressing/diminishing and is turning brown Neuro: Awake, fully oriented. Speech fluent - Summary of Assessment and Plan Summary of Assessment and Plan: Recurrent falls - likely mechanical, PT/OT rec SNF or swing bed, stop chronic opioids Hematoma of left thigh c/b acute blood loss anemia - Hb 7.9, transfuse tomorrow if any further decrease Chronic issues: HTN, HLD, Hypothyroidism, CAD, CKD3b - continue home meds including imdur, lopressor, ASA, plavix, statin, tegretol, synthroid PPx: sqh FEN: regular, no MIVF Lines: PIV Consults: Code: Full Dispo: patient requires inpatient eval and management at this time, planning for swing bed, anticipate d/c tomorrow Internal Medicine: Result - Labs CBC & Chem 7: 09/30/18 00:59 09/30/18 00:59 Labs: Short CBC 09/30/18 Range/Units 00:59 Hgb 7.9 L (11.5-15.4) g/dL Hct 25.3 L (35.3-44.9) % BMP 09/30/18 00:59 Sodium 139 Potassium 4.2 Chloride 109 H Carbon Dioxide 24 BUN 18 Creatinine 1.21 H Glucose 97 Calcium 8.4 L - ABG Interpretation ABG results: PT/INR, D-dimer PT 11.6 Seconds (9.4-12.1) 09/27/18 13:11 Consult Discharge Plan - Plan Referrals: Garcia Thakkar Jr, MD [Primary Care Provider] -
[2018-09-30] MEDS: *HR* OxyCODONE/APAP 5/325 TABLET PO PRN (20:00)
[2018-10-01] MEDS: *HR* OxyCODONE/APAP 5/325 TABLET PO PRN (04:32)
[2018-10-01 04:37] VITALS: BP 164/80
[2018-10-01] MEDS ORDERED: *HR* Enoxaparin 30 MG/0.3 ML SYRINGE SQ SCH (06:00)
[2018-10-01] MEDS: Isosorbide MONOnitrate (24 HR) 60 MG TAB.ER.24H PO SCH (09:08)
[2018-10-01] MEDS: Aspirin Enteric Coated 81 MG Tablet PO SCH (09:08)
[2018-10-01] MEDS: carBAMazepine 200 MG TABLET PO SCH (09:09)
[2018-10-01 09:13] LABS: Hematocrit 31.3 % (35.3-44.9)
[2018-10-01 09:15] LABS: Hemoglobin 9.9 g/dL (11.5-15.4)
--- NOTE | 2018-10-01 11:47 | Discharge Summary ---
- NOTES TO OUTPATIENT PROVIDER Notes to Outpatient Provider: Recurrent falls leading to large thigh hematoma requiring observation but no transfusion, repeat Hb 1 week Date of Encounter: 10/01/18 Time of Encounter: 11:45 Hospital course: Dear Doctors, I recently had the opportunity to care for this patient during their recent hospital stay at [facility]. Adilene Hall is an 83 F w hx HTN, CAD, TIA, CKD3, hypothyroidism, DDD, and recent fall 2 weeks prior to admission with resultant large thigh hematoma who presented after losing her balance and falling at home which resulted in a small laceration to her L parietal scalp. No LOC. In the ED, CT revealed no intracranial skull abnormalities. Hb was ~10, baseline ~11. Admitted for monitoring in the context of head trauma. In the hospital, pt's hemoglobin downtrended to 8 but stabilized and did not require transfusion. No untoward events and her mental status remained stable. Pt evaluated by PT/OT who recommended inpatient rehab. Pt will transfer to inpatient rehab and then follow up PCP. Dx: recurrent falls, acute on chronic blood loss anemia from thigh hematoma, deconditioning Pertinent tests/consults: CT head w superficial parietal hematoma, CT left thigh w large hematoma Follow up: inpatient rehab, PCP 1 week Tests pending: none Med changes: stop oxycodone Mental status: awake, fully oriented Code status: Team Sports Sales Associate spent on discharge: 25 minutes It has been my pleasure participating in this patient's care. Please contact me with any questions or concerns regarding their hospital stay. Sincerely, Easton Mccarty MD - Discharge Medications Prescriptions: Continued Omeprazole [PriLOSEC] 20 mg PO 1200 Clopidogrel [Plavix] 75 mg PO DAILY Metoprolol Tartrate [Lopressor] 25 mg PO BID Levothyroxine [Synthroid] 50 mcg PO DAILY Isosorbide MONOnitrate [Isosorbide Mononitrate ER] 120 mg PO 1200 Aspirin [Lo-Dose Aspirin EC] 81 mg PO 1600 carBAMazepine [CarBAMazepine] 100 mg PO QAM Discontinued OxyCODONE/APAP 5/325 [Percocet 5/325 MG] 1 tab PO TID PRN PRN Reason: Pain Home Medications: Aspirin [Lo-Dose Aspirin EC] 81 mg PO 1600 09/27/18 [History] Clopidogrel [Plavix] 75 mg PO DAILY 09/27/18 [History] Isosorbide MONOnitrate [Isosorbide Mononitrate ER] 120 mg PO 1200 09/27/18 [History] Levothyroxine [Synthroid] 50 mcg PO DAILY 09/27/18 [History] Metoprolol Tartrate [Lopressor] 25 mg PO BID 09/27/18 [History] Omeprazole [PriLOSEC] 20 mg PO 1200 09/27/18 [History] carBAMazepine [CarBAMazepine] 100 mg PO QAM 09/27/18 [History] Allergies/Adverse Reactions: Allergy/AdvReac Type Severity Reaction Status Date / Time esomeprazole [From Nexium] AdvReac Chest Pain Verified 09/27/18 12:48 hydromorphone [From Dilaudid] AdvReac Vomiting Verified 09/27/18 12:48 iron AdvReac Vomiting Verified 09/27/18 12:48 Date of admission: 09/28/18 17:34 Primary care physician: Garcia Thakkar Jr, MD Consults: 09/27/18 11:41 Consult to Occupational Therapy [CONS] Routine Comment: Evaluate, develop and implement POC Reason for Consult: falls Does patient have active BEDREST order?: No Is patient medically & hemodynamically stable?: Yes Patient assessed for mobility or mobilized this visit?: No Consult to Physical Therapy [CONS] Routine Comment: Evaluate, develop and implement POC Reason for Consult: falls Does patient have active BEDREST order?: No Is patient medically & hemodynamically stable?: Yes Patient assessed for mobility or mobilized this visit?: No 09/27/18 13:00 Consult to Pastoral Services [CONS] Routine Comment: Consult to Flavor Extractor [CONS] Routine Reason for SW Consult: Possible rehab placement - Constitutional Vitals: Temp Pulse Resp BP Pulse Ox 97.9 F 85 14 164/80 97 10/01/18 04:34 10/01/18 04:34 10/01/18 04:34 10/01/18 04:34 10/01/18 09:11 General appearance: Present: cooperative, mild distress, A&O X 3, pleasant, answers questions appropriately Exam: General: NAD, good eye contact, well appearing, elderly HEENT: L head with bump and small laceration Thoracic: Normal breath sounds b/l, no wheezing or crackles Cardio: Normal S1 and S2, regular rate and rhythm Abdomen: Soft, nontender Extremities: Warm, well perfused. DP pulses 2+ b/l. No edema. Skin: L thigh w extensive lateral bruising and some swelling although appears to be progressing/diminishing/evolving appropriately Neuro: Awake, fully oriented. Speech fluent - Patient Status Disposition: Transfer Hospital Swing Bed Condition: Fair Functional capacity at discharge: uses cane/walker Overall status at discharge: patient is progressing back to baseline - Discharge Instructions Follow Up With: Garcia Thakkar Jr, MD [Primary Care Provider] - - Diet and Activity Activity: as per physical therapy, resume usual activities as tolerated Diet: advance to your usual diet
--- NOTE | 2018-10-01 12:37 | Physician Discharge Referral ---
ExtendedCare Referral Info Transfer To: Swing bed Provider in Charge after Transfer: PCP Institutional Level of Care: Skilled - Transfer Medications Home Medications: Aspirin [Lo-Dose Aspirin EC] 81 mg PO 1600 09/27/18 [History] Clopidogrel [Plavix] 75 mg PO DAILY 09/27/18 [History] Isosorbide MONOnitrate [Isosorbide Mononitrate ER] 120 mg PO 1200 09/27/18 [History] Levothyroxine [Synthroid] 50 mcg PO DAILY 09/27/18 [History] Metoprolol Tartrate [Lopressor] 25 mg PO BID 09/27/18 [History] Omeprazole [PriLOSEC] 20 mg PO 1200 09/27/18 [History] carBAMazepine [CarBAMazepine] 100 mg PO QAM 09/27/18 [History] Allergies/Adverse Reactions: Allergy/AdvReac Type Severity Reaction Status Date / Time esomeprazole [From Nexium] AdvReac Chest Pain Verified 09/27/18 12:48 hydromorphone [From Dilaudid] AdvReac Vomiting Verified 09/27/18 12:48 iron AdvReac Vomiting Verified 09/27/18 12:48 - Respiratory Orders Smoking Cessation: Smoking cessation has been advised. For more information, call the [place] Tobacco Quit Line at 6-400-PLOCNOW. - Ancillary Orders May use pressure relief devices daily prn, May go on CONNOR w/family/respon constitution party w/meds at nurse discretion PRN, May have alcoholic beverages, May consult with Dentist, Production Assembly Operator, Account Executive Trainee PRN - Advance Directives Code Status: Full Code - Mobility Orders Ambulate - Rehabiliation Orders Rehab Potential: Good Rehab Orders: Evaluation for Physical Therapy, Evaluation for Occupational Therapy - Diet Orders Cardiac CERTIFICATION: I certify that the transfer of the above named patient to an Extended Care Facility is necessary for the continuing treatment of the diagnosis listed. The above information is true and accurate reflection of patient's current condition. Confidential - Redisclosure prohibited without a patient's written consent.
== END 2018-10-01 14:46 | disposition other institution (70) | DRG 605 ==
LOC: 3ANU 05:18 → EMEROOARM 05:18 → SUATTDRO 11:35 → 3ANU 12:24 → SUATTDRO 09-28 17:34
PROVIDERS: ADMIT Internal Medicine Nephrology; ATTEND Internal Medicine

== ENCOUNTER 2019-06-18 20:49 | Inpatient (IN) ==
[2019-06-18] MEDS ORDERED: Tetracaine 0.5% OPTH 80 DROP/4 ML BOTTLE LEFT EYE ONE (21:02)
[2019-06-18] MEDS ORDERED: *HR* FentaNYL (PF) 100 MCG/2 ML VIAL IVP ONE (21:03)
[2019-06-18] MEDS ORDERED: Isovue-370 500 ML BOTTLE IVP ONE (21:05)
[2019-06-18 21:52] LABS: Basophils % 0.5 %; Eosinophils # 0.1 K/mcL (0.0-0.6); Eosinophils % 0.8 %; Hemoglobin 13.3 g/dL (11.5-15.4); Immature Granulocytes % 0.3 % (0-4); Lymphocytes # 1.4 K/mcL (0.6-4.6); Lymphocytes % 22.5 %; Mean Corpuscular HGB Conc 33.3 g/dL (31.6-35.5); Mean Corpuscular Hemoglobin 27.8 pg (28.0-33.3); Mean Corpuscular Volume 83.5 fL (83.0-100.0); Mean Platelet Volume 8.6 fL (9.4-12.4); Monocytes # 0.6 K/mcL (0.0-1.3); Monocytes % 8.8 %; Neutrophils # 4.2 K/mcL (1.6-8.9); Platelet Count 257 K/mcL (140-400); Red Blood Count 4.79 M/mcL (3.82-4.97); Red Cell Distribution Width 13.4 % (11.5-14.5); Segmented Neutrophils % 67.1 %; White Blood Count 6.2 K/mcL (4.3-11.1)
[2019-06-18 22:12] LABS: Calcium 9.7 mg/dL (8.6-10.3); Potassium 3.5 mEq/L (3.5-5.1)
[2019-06-18 22:22] LABS: Bilirubin,Urine Negative (Negative); Blood,Urine Negative (Negative); Clarity,Urine Clear (Clear); Color,Urine Yellow (Yellow); Glucose,Urine (UA) Normal (Normal); Ketones,Urine Negative (Negative); Leukocyte Esterase,Urine Trace (Negative); Nitrite,Urine Negative (Negative); Protein,Urine Negative (Neg-Trace); Specific Gravity,Urine 1.013 (1.010-1.025); Urobilinogen,Urine Normal (Normal)
[2019-06-18 22:29] LABS: Bacteria,Urine None Seen per hpf (None-Few); Hyaline Casts,Urine None Seen per lpf (None-Few); RBC,Urine 0-3 per hpf (0-3); Squamous Epithelial Cell,Urine Many per lpf (None-Few)
[2019-06-18] MEDS ORDERED: Aspirin 325 MG TABLET PO ONE (22:53)
[2019-06-18] MEDS ORDERED: *HR* HYDROcodone/Acet 5/325 mg TABLET PO ONE (22:56)
[2019-06-19] MEDS ORDERED: Ondansetron 4 MG/2 ML VIAL IVP PRN (00:43)
[2019-06-19] MEDS ORDERED: Naloxone 0.4 MG/ML INJ IVP PRN (00:43)
[2019-06-19] MEDS ORDERED: 0.9 % Sodium Chloride 1,000 ML IVC SCH (00:45)
[2019-06-19] MEDS ORDERED: Acetaminophen/Butalbital/CaffeineTABLET PO PRN (01:16)
[2019-06-19 05:56] LABS: Basophils % 0.6 %; Eosinophils # 0.1 K/mcL (0.0-0.6); Eosinophils % 1.3 %; Hematocrit 38.2 % (35.3-44.9); Hemoglobin 12.2 g/dL (11.5-15.4); Immature Granulocytes % 0.4 % (0-4); Lymphocytes # 1.3 K/mcL (0.6-4.6); Lymphocytes % 23.5 %; Mean Corpuscular HGB Conc 31.9 g/dL (31.6-35.5); Mean Corpuscular Hemoglobin 27.5 pg (28.0-33.3); Mean Corpuscular Volume 86.2 fL (83.0-100.0); Mean Platelet Volume 8.7 fL (9.4-12.4); Monocytes # 0.5 K/mcL (0.0-1.3); Monocytes % 8.4 %; Neutrophils # 3.6 K/mcL (1.6-8.9); Platelet Count 202 K/mcL (140-400); Red Blood Count 4.43 M/mcL (3.82-4.97); Red Cell Distribution Width 13.2 % (11.5-14.5); Segmented Neutrophils % 65.8 %; White Blood Count 5.5 K/mcL (4.3-11.1)
[2019-06-19] MEDS: *HR* Heparin 5,000 UNIT/ML VIAL SQ SCH ×3 (05:56→21:49)
[2019-06-19 06:09] LABS: Albumin 4.2 g/dL (3.5-5.7); Albumin/Globulin Ratio 1.7 (1.1-2.2); Bilirubin,Total 0.4 mg/dL (0.3-1.0); Calcium 9.3 mg/dL (8.6-10.3); Globulin 2.5 g/dL (2.4-3.5); Magnesium 1.9 mg/dL (1.6-2.6); Phosphorous 2.4 mg/dL (2.7-4.5); Potassium 3.3 mEq/L (3.5-5.1); Total Protein 6.7 g/dL (6.4-8.9)
[2019-06-19] MEDS: Aspirin 81 MG TAB.CHEW PO SCH (09:26)
[2019-06-19] MEDS: CarBAMazepine 100 MG TABLET PO SCH (09:26)
[2019-06-19] MEDS: Acetaminophen 325 MG TABLET PO PRN (09:26)
[2019-06-20 01:51] LABS: Basophils # 0.1 K/mcL (0.0-0.2); Basophils % 0.7 %; Eosinophils # 0.1 K/mcL (0.0-0.6); Eosinophils % 0.9 %; Hematocrit 40.6 % (35.3-44.9); Immature Granulocytes % 0.1 % (0-4); Lymphocytes # 1.5 K/mcL (0.6-4.6); Lymphocytes % 21.7 %; Mean Corpuscular Hemoglobin 27.3 pg (28.0-33.3); Mean Corpuscular Volume 85.3 fL (83.0-100.0); Mean Platelet Volume 8.4 fL (9.4-12.4); Monocytes # 0.6 K/mcL (0.0-1.3); Monocytes % 8.3 %; Neutrophils # 4.7 K/mcL (1.6-8.9); Platelet Count 243 K/mcL (140-400); Red Blood Count 4.76 M/mcL (3.82-4.97); Red Cell Distribution Width 13.2 % (11.5-14.5); Segmented Neutrophils % 68.3 %
[2019-06-20 01:55] LABS: INR 1.1
[2019-06-20 02:09] LABS: Calcium 9.4 mg/dL (8.6-10.3); Potassium 3.7 mEq/L (3.5-5.1)
[2019-06-20] MEDS: *HR* Heparin 5,000 UNIT/ML VIAL SQ SCH ×3 (05:48→20:46)
[2019-06-20] MEDS: Aspirin 81 MG TAB.CHEW PO SCH (08:58)
[2019-06-20] MEDS: Acetaminophen 325 MG TABLET PO PRN ×2 (08:58→15:46)
[2019-06-20] MEDS: CarBAMazepine 100 MG TABLET PO SCH (08:59)
[2019-06-20] MEDS: Isosorbide MONOnitrate (24 HR) 60 MG TAB.ER.24H PO SCH (08:59)
[2019-06-20] MEDS: Ketorolac OPTH Soln 5 ML BOTTLE LEFT EYE SCH ×3 (08:59→20:39)
[2019-06-20] MEDS: Dorzolamide/Timolol 1 DROP LEFT EYE SCH ×2 (09:00→20:45)
[2019-06-20] MEDS: PrednisoLONE Acetate 1% Opth 5 ML BOTTLE LEFT EYE SCH ×2 (15:50→20:52)
[2019-06-20] MEDS: Latanoprost 2.5 ML BOTTLE LEFT EYE SCH (20:49)
[2019-06-20] MEDS ORDERED: *HR* OxyCODONE/APAP 5/325 TABLET PO SCH (21:00)
[2019-06-21] MEDS: *HR* Heparin 5,000 UNIT/ML VIAL SQ SCH ×3 (06:06→21:26)
[2019-06-21] MEDS: Isosorbide MONOnitrate (24 HR) 60 MG TAB.ER.24H PO SCH (07:57)
[2019-06-21] MEDS: CarBAMazepine 100 MG TABLET PO SCH (07:57)
[2019-06-21] MEDS: Aspirin 81 MG TAB.CHEW PO SCH (07:58)
[2019-06-21] MEDS: Dorzolamide/Timolol 1 DROP LEFT EYE SCH ×2 (07:58→20:29)
[2019-06-21] MEDS: PrednisoLONE Acetate 1% Opth 5 ML BOTTLE LEFT EYE SCH ×4 (07:59→20:28)
[2019-06-21] MEDS: Ketorolac OPTH Soln 5 ML BOTTLE LEFT EYE SCH ×3 (07:59→20:30)
[2019-06-21] MEDS: Acetaminophen 325 MG TABLET PO PRN (08:25)
[2019-06-21] MEDS ORDERED: amLODIPine 5 MG TABLET PO SCH (10:15)
[2019-06-21] MEDS ORDERED: Acetaminophen/Butalbital/CaffeineTABLET PO PRN (11:25)
[2019-06-21] MEDS ORDERED: 0.9 % Sodium Chloride 500 ML IVC SCH (11:30)
[2019-06-21] MEDS ORDERED: *HR* OxyCODONE/APAP 5/325 TABLET PO SCH (14:46)
[2019-06-21] MEDS ORDERED: *HR* Promethazine 25 MG/ML VIAL IVP PRN (14:55)
[2019-06-21] MEDS ORDERED: *HR* OxyCODONE/APAP 5/325 TABLET PO PRN (15:00)
[2019-06-21 15:44] LABS: Magnesium 1.7 mg/dL (1.6-2.6); Phosphorous 3.5 mg/dL (2.7-4.5)
[2019-06-21] MEDS: Latanoprost 2.5 ML BOTTLE LEFT EYE SCH (20:29)
[2019-06-22 04:02] LABS: Basophils % 0.5 %; Eosinophils # 0.1 K/mcL (0.0-0.6); Eosinophils % 1.6 %; Hematocrit 34.8 % (35.3-44.9); Immature Granulocytes % 0.3 % (0-4); Lymphocytes # 1.6 K/mcL (0.6-4.6); Lymphocytes % 25.3 %; Mean Corpuscular HGB Conc 32.5 g/dL (31.6-35.5); Mean Corpuscular Hemoglobin 27.6 pg (28.0-33.3); Mean Corpuscular Volume 84.9 fL (83.0-100.0); Mean Platelet Volume 8.4 fL (9.4-12.4); Monocytes # 0.5 K/mcL (0.0-1.3); Monocytes % 7.2 %; Platelet Count 197 K/mcL (140-400); Red Cell Distribution Width 13.7 % (11.5-14.5); Segmented Neutrophils % 65.1 %; White Blood Count 6.2 K/mcL (4.3-11.1)
[2019-06-22 04:03] LABS: Hemoglobin 11.3 g/dL (11.5-15.4)
[2019-06-22 04:28] LABS: Calcium 8.4 mg/dL (8.6-10.3); Magnesium 2.1 mg/dL (1.6-2.6); Phosphorous 3.2 mg/dL (2.7-4.5); Potassium 3.4 mEq/L (3.5-5.1)
[2019-06-22] MEDS: *HR* Heparin 5,000 UNIT/ML VIAL SQ SCH ×3 (06:25→20:20)
[2019-06-22] MEDS: Isosorbide MONOnitrate (24 HR) 60 MG TAB.ER.24H PO SCH (08:06)
[2019-06-22] MEDS: CarBAMazepine 100 MG TABLET PO SCH (08:07)
[2019-06-22] MEDS: Aspirin 81 MG TAB.CHEW PO SCH (08:07)
[2019-06-22] MEDS: Dorzolamide/Timolol 1 DROP LEFT EYE SCH ×2 (08:07→20:20)
[2019-06-22] MEDS: PrednisoLONE Acetate 1% Opth 5 ML BOTTLE LEFT EYE SCH ×4 (08:08→20:18)
[2019-06-22] MEDS: Ketorolac OPTH Soln 5 ML BOTTLE LEFT EYE SCH ×3 (08:08→20:19)
[2019-06-22 20:13] VITALS: BP 159/75
[2019-06-22] MEDS: Latanoprost 2.5 ML BOTTLE LEFT EYE SCH (20:19)
== END 2019-06-22 21:25 | DRG 65 ==
LOC: 2NENU 20:49 → EMEROOARM 20:49 → SUATTDRO 23:26 → 2NENU 06-19 00:14 → SUATTDRO 06-19 16:17
PROVIDERS: ADMIT Internal Medicine; ATTEND Internal Medicine

== ENCOUNTER 2019-10-30 19:42 | Inpatient (IN) ==
[2019-10-30] MEDS ORDERED: Aspirin 325 MG TABLET PO ONE (20:05)
[2019-10-30 20:14] LABS: Hematocrit 34.6 % (35.3-44.9); Hemoglobin 11.4 g/dL (11.5-15.4); Mean Corpuscular HGB Conc 32.9 g/dL (31.6-35.5); Mean Corpuscular Hemoglobin 27.6 pg (28.0-33.3); Mean Corpuscular Volume 83.8 fL (83.0-100.0); Platelet Count 256 K/mcL (140-400); Red Blood Count 4.13 M/mcL (3.82-4.97); Red Cell Distribution Width 13.5 % (11.5-14.5); White Blood Count 6.9 K/mcL (4.3-11.1)
[2019-10-30 20:15] LABS: Basophils % 0.4 %; Eosinophils # 0.1 K/mcL (0.0-0.6); Immature Granulocytes % 0.3 % (0-4); Lymphocytes # 1.3 K/mcL (0.6-4.6); Lymphocytes % 18.9 %; Mean Platelet Volume 8.2 fL (9.4-12.4); Monocytes # 0.5 K/mcL (0.0-1.3); Monocytes % 7.2 %; Segmented Neutrophils % 72.2 %
[2019-10-30 20:26] LABS: Alanine Aminotransferase 9 Units/L (7-52); Albumin 4.2 g/dL (3.5-5.7); Albumin/Globulin Ratio 1.8 (1.1-2.2); Alkaline Phosphatase 113 Units/L (34-104); Aspartate Amino Transferase 15 Units/L (13-39); BUN/Creatinine Ratio 16 (6-26); Bilirubin,Direct 0.1 mg/dL (0.0-0.2); Bilirubin,Indirect 0.2 mg/dL (0.0-1.0); Bilirubin,Total 0.3 mg/dL (0.3-1.0); Blood Urea Nitrogen 18 mg/dL (8-23); Calcium 8.6 mg/dL (8.6-10.3); Carbon Dioxide 28 mEq/L (23-29); Chloride 93 mEq/L (98-107); Globulin 2.4 g/dL (2.4-3.5); Glucose 105 mg/dL (70-105); Lipase 60 Units/L (11-82); Osmolality,Calculated 270 (280-300); Potassium 3.1 mEq/L (3.5-5.1); Sodium 129 mEq/L (136-145); Total Protein 6.6 g/dL (6.4-8.9); Troponin I < 0.03 ng/mL (< 0.04); eGFR For African Americans 56 (> 60); eGFR For Non-African Americans 47 (> 60)
[2019-10-30 20:37] LABS: Bilirubin,Urine Negative (Negative); Blood,Urine Negative (Negative); Clarity,Urine Clear (Clear); Color,Urine Yellow (Yellow); Glucose,Urine (UA) Normal (Normal); Ketones,Urine Negative (Negative); Leukocyte Esterase,Urine Negative (Negative); Nitrite,Urine Negative (Negative); PH,Urine 6.5 pH Units (5.0-8.0); Protein,Urine Negative (Neg-Trace); Urobilinogen,Urine Normal (Normal)
[2019-10-30] MEDS ORDERED: Potassium Chloride Elixir 20 MEQ/15 ML UDC PO ONE (20:49)
[2019-10-30] MEDS: 0.9 % Sodium Chloride 1,000 ML IVC SCH (21:16)
[2019-10-31] MEDS ORDERED: Morphine Sulfate 2 MG/ML SYRINGE IVP ONE (00:22)
[2019-10-31] MEDS ORDERED: polyethylene glycoL 3350 17 GM POWD.PACK PO PRN (00:24)
[2019-10-31] MEDS ORDERED: Naloxone 0.4 MG/ML INJ IVP PRN (00:36)
[2019-10-31] MEDS ORDERED: Acetaminophen 325 MG TABLET PO PRN (00:36)
[2019-10-31] MEDS ORDERED: Ondansetron 4 MG/2 ML VIAL IVP PRN (00:36)
[2019-10-31] MEDS ORDERED: Nitroglycerin 0.4 MG TAB.SUBL SL PRN (01:25)
[2019-10-31] MEDS: Latanoprost 2.5 ML BOTTLE LEFT EYE SCH ×2 (01:28→20:41)
[2019-10-31] MEDS: Dorzolamide/Timolol 1 DROP LEFT EYE SCH ×3 (01:29→20:47)
[2019-10-31 02:48] LABS: Hematocrit 32.8 % (35.3-44.9); Hemoglobin 10.8 g/dL (11.5-15.4); Mean Corpuscular HGB Conc 32.9 g/dL (31.6-35.5); Mean Corpuscular Hemoglobin 28.1 pg (28.0-33.3); Mean Corpuscular Volume 85.2 fL (83.0-100.0); Mean Platelet Volume 8.4 fL (9.4-12.4); Platelet Count 238 K/mcL (140-400); Red Blood Count 3.85 M/mcL (3.82-4.97); Red Cell Distribution Width 13.6 % (11.5-14.5); White Blood Count 6.3 K/mcL (4.3-11.1)
[2019-10-31 03:20] LABS: Calcium 8.7 mg/dL (8.6-10.3); Chol/HDL Ratio 2.5 (0-4.9); Magnesium 1.2 mg/dL (1.6-2.6); Potassium 3.9 mEq/L (3.5-5.1)
[2019-10-31 03:21] LABS: Thyroid Stimulating Hormone 0.889 mcIU/mL (0.340-5.600)
[2019-10-31] MEDS ORDERED: Melatonin 3 MG TABLET PO ONE ×2 (04:16→23:37)
[2019-10-31] MEDS: *HR* Heparin 5,000 UNIT/ML VIAL SQ SCH ×3 (05:13→20:41)
[2019-10-31] MEDS ORDERED: Regadenoson 0.4 MG/5 ML SYRINGE IVP ONE (06:32)
[2019-10-31] MEDS: Aspirin 81 MG TAB.CHEW PO SCH (09:39)
[2019-10-31] MEDS: Artificial Tears SOLN 15 ML BOTTLE RIGHT EYE SCH ×2 (09:40→20:47)
[2019-10-31] MEDS: amLODIPine 5 MG TABLET PO SCH (09:40)
[2019-10-31 14:32] LABS: BUN/Creatinine Ratio 15 (6-26); Blood Urea Nitrogen 15 mg/dL (8-23); Calcium 9.2 mg/dL (8.6-10.3); Carbon Dioxide 25 mEq/L (23-29); Chloride 96 mEq/L (98-107); Glucose 99 mg/dL (70-105); Magnesium 3.9 mg/dL (1.6-2.6); Osmolality,Calculated 273 (280-300); Potassium 3.8 mEq/L (3.5-5.1); Sodium 131 mEq/L (136-145); eGFR For African Americans > 60 (> 60); eGFR For Non-African Americans 52 (> 60)
[2019-10-31] MEDS: Isosorbide MONOnitrate (24 HR) 60 MG TAB.ER.24H PO SCH (15:50)
[2019-10-31] MEDS ORDERED: Sennosides/Docusate Sodium TABLET PO PRN (21:00)
[2019-10-31] MEDS ORDERED: *HR* OxyCODONE/APAP 5/325 TABLET PO SCH (21:00)
[2019-10-31] MEDS: 0.9 % Sodium Chloride 1,000 ML IVC SCH (22:57)
[2019-11-01] MEDS: 0.9 % Sodium Chloride 1,000 ML IVC SCH (04:15)
[2019-11-01] MEDS: *HR* Heparin 5,000 UNIT/ML VIAL SQ SCH (05:36)
[2019-11-01 06:10] LABS: Hematocrit 33.9 % (35.3-44.9); Hemoglobin 10.8 g/dL (11.5-15.4); Mean Corpuscular HGB Conc 31.9 g/dL (31.6-35.5); Mean Corpuscular Hemoglobin 27.2 pg (28.0-33.3); Mean Corpuscular Volume 85.4 fL (83.0-100.0); Mean Platelet Volume 8.2 fL (9.4-12.4); Platelet Count 219 K/mcL (140-400); Red Blood Count 3.97 M/mcL (3.82-4.97); Red Cell Distribution Width 13.7 % (11.5-14.5); White Blood Count 4.4 K/mcL (4.3-11.1)
[2019-11-01 06:32] LABS: Alanine Aminotransferase 8 Units/L (7-52); Albumin 3.6 g/dL (3.5-5.7); Albumin/Globulin Ratio 1.6 (1.1-2.2); Alkaline Phosphatase 100 Units/L (34-104); Aspartate Amino Transferase 15 Units/L (13-39); BUN/Creatinine Ratio 14 (6-26); Bilirubin,Total 0.4 mg/dL (0.3-1.0); Blood Urea Nitrogen 14 mg/dL (8-23); Calcium 8.7 mg/dL (8.6-10.3); Carbon Dioxide 26 mEq/L (23-29); Chloride 101 mEq/L (98-107); Globulin 2.2 g/dL (2.4-3.5); Glucose 90 mg/dL (70-105); Magnesium 2.1 mg/dL (1.6-2.6); Osmolality,Calculated 278 (280-300); Phosphorous 3.2 mg/dL (2.7-4.5); Sodium 134 mEq/L (136-145); Total Protein 5.8 g/dL (6.4-8.9); eGFR For African Americans > 60 (> 60); eGFR For Non-African Americans 51 (> 60)
[2019-11-01 07:11] VITALS: BP 119/68
[2019-11-01] MEDS ORDERED: hydroCHLOROthiazide 25 MG TABLET PO SCH (09:00)
[2019-11-01] MEDS ORDERED: CarBAMazepine 100 MG TABLET PO SCH (09:00)
[2019-11-01] MEDS: amLODIPine 5 MG TABLET PO SCH (09:11)
[2019-11-01] MEDS: Aspirin 81 MG TAB.CHEW PO SCH (09:11)
[2019-11-01] MEDS: Isosorbide MONOnitrate (24 HR) 60 MG TAB.ER.24H PO SCH (09:11)
[2019-11-01] MEDS: Dorzolamide/Timolol 1 DROP LEFT EYE SCH (09:12)
[2019-11-01] MEDS: Artificial Tears SOLN 15 ML BOTTLE RIGHT EYE SCH (09:12)
== END 2019-11-01 11:53 | disposition home or self-care (01) | DRG 303 ==
LOC: 3BNU 19:42 → EMEROOARM 19:42 → SUATTDRO 21:28 → 3BNU 22:05
PROVIDERS: ADMIT Internal Medicine; ATTEND Internal Medicine

== ENCOUNTER 2020-06-26 14:46 | Inpatient (IN) ==
[2020-06-26 16:15] LABS: Basophils % 0.6 %; Eosinophils # 0.1 K/mcL (0.0-0.6); Eosinophils % 1.8 %; Hematocrit 35.3 % (35.3-44.9); Hemoglobin 11.2 g/dL (11.5-15.4); Immature Granulocytes % 0.4 % (0-4); Lymphocytes # 1.3 K/mcL (0.6-4.6); Mean Corpuscular HGB Conc 31.7 g/dL (31.6-35.5); Mean Corpuscular Hemoglobin 28.6 pg (28.0-33.3); Mean Corpuscular Volume 90.3 fL (83.0-100.0); Mean Platelet Volume 8.3 fL (9.4-12.4); Monocytes # 0.4 K/mcL (0.0-1.3); Monocytes % 8.8 %; Neutrophils # 3.1 K/mcL (1.6-8.9); Platelet Count 271 K/mcL (140-400); Red Blood Count 3.91 M/mcL (3.82-4.97); Red Cell Distribution Width 13.7 % (11.5-14.5); Segmented Neutrophils % 62.4 %; White Blood Count 4.9 K/mcL (4.3-11.1)
[2020-06-26 16:30] LABS: BUN/Creatinine Ratio 11 (6-26); Blood Urea Nitrogen 16 mg/dL (8-23); Calcium 8.9 mg/dL (8.6-10.3); Carbon Dioxide 26 mEq/L (23-29); Chloride 99 mEq/L (98-107); Glucose 95 mg/dL (70-105); Osmolality,Calculated 275 (280-300); Sodium 132 mEq/L (136-145); eGFR For African Americans 42 (> 60); eGFR For Non-African Americans 35 (> 60)
[2020-06-26 16:31] LABS: Troponin I < 0.03 ng/mL (< 0.04)
[2020-06-26] MEDS ORDERED: 0.9 % Sodium Chloride 500 ML IVC ONE (16:56)
[2020-06-26 17:39] LABS: Bilirubin,Urine Negative (Negative); Blood,Urine Negative (Negative); Clarity,Urine Clear (Clear); Color,Urine Light-Yellow (Yellow); Glucose,Urine (UA) Normal (Normal); Ketones,Urine Negative (Negative); Leukocyte Esterase,Urine Negative (Negative); Nitrite,Urine Negative (Negative); Protein,Urine Negative (Neg-Trace); Specific Gravity,Urine 1.015 (1.010-1.025); Urobilinogen,Urine Normal (Normal)
[2020-06-26] MEDS ORDERED: Perflutren Lipid Microsphere 1.3 ML in 0.9 % Sodium Chloride 8.7 ML IVP PRN (18:52)
[2020-06-26] MEDS ORDERED: Aspirin Enteric Coated 325 MG Tablet PO ONE (18:53)
[2020-06-26] MEDS ORDERED: Naloxone 0.4 MG/ML INJ IVP PRN (18:55)
[2020-06-26] MEDS ORDERED: Ondansetron 4 MG/2 ML VIAL IVP PRN (18:55)
[2020-06-26] MEDS ORDERED: Acetaminophen 325 MG TABLET PO PRN (18:55)
[2020-06-26] MEDS ORDERED: polyethylene glycoL 3350 17 GM POWD.PACK PO PRN (19:03)
[2020-06-26] MEDS ORDERED: Sennosides/Docusate Sodium TABLET PO PRN (19:03)
[2020-06-26] MEDS ORDERED: *HR* OxyCODONE/APAP 5/325 TABLET PO SCH (21:00)
[2020-06-26] MEDS: Dorzolamide/Timolol OPTH 10 ML BOTTLE LEFT EYE SCH ×2 (21:17→21:48)
[2020-06-26] MEDS: Ranolazine 500 MG TAB.ER.12H PO SCH (21:17)
[2020-06-26] MEDS: Latanoprost 2.5 ML BOTTLE LEFT EYE SCH ×2 (21:17→23:07)
[2020-06-26] MEDS ORDERED: Melatonin 3 MG TABLET PO ONE (23:23)
[2020-06-27] MEDS ORDERED: 0.9 % Sodium Chloride 250 ML ONE (03:59)
[2020-06-27 06:03] LABS: Prothrombin Time 12.1 Seconds (9.4-12.1)
[2020-06-27 06:06] LABS: Activated Partial Thrombo Time 25.8 Seconds (26.0-36.0)
[2020-06-27 06:28] LABS: BUN/Creatinine Ratio 12 (6-26); Blood Urea Nitrogen 13 mg/dL (8-23); Calcium 8.9 mg/dL (8.6-10.3); Carbon Dioxide 24 mEq/L (23-29); Chloride 102 mEq/L (98-107); Chol/HDL Ratio 3.1 (0-4.9); Cholesterol 162 mg/dL (< 200); Glucose 86 mg/dL (70-105); HDL Cholesterol 53 mg/dL (40-59); LDL Cholesterol,Calculated 79 mg/dL (< 100); Magnesium 1.8 mg/dL (1.6-2.6); Osmolality,Calculated 277 (280-300); Sodium 134 mEq/L (136-145); Triglycerides 148 mg/dL (< 150); Troponin I < 0.03 ng/mL (< 0.04); eGFR For African Americans 57 (> 60); eGFR For Non-African Americans 47 (> 60)
[2020-06-27] MEDS: Aspirin 81 MG TAB.CHEW PO SCH (08:11)
[2020-06-27] MEDS: amLODIPine 5 MG TABLET PO SCH (08:11)
[2020-06-27] MEDS: Ranolazine 500 MG TAB.ER.12H PO SCH ×2 (08:11→20:44)
[2020-06-27] MEDS: CarBAMazepine 100 MG TABLET PO SCH (08:15)
[2020-06-27] MEDS: Dorzolamide/Timolol OPTH 10 ML BOTTLE LEFT EYE SCH ×2 (08:20→20:44)
[2020-06-27 08:33] LABS: % Iron Saturation 33 % (15-50); Iron 92 mcg/dL (50-170); Transferrin 197 mg/dL (203-362)
[2020-06-27 08:51] LABS: Ferritin 130 ng/mL (10-120)
[2020-06-27 10:09] LABS: Estimated Average Glucose 111 mg/dl; Hemoglobin A1C 5.5 %
[2020-06-27] MEDS: Isosorbide MONOnitrate (24 HR) 60 MG TAB.ER.24H PO SCH (11:44)
[2020-06-27] MEDS: *HR* OxyCODONE/APAP 5/325 TABLET PO PRN ×2 (16:22→23:39)
[2020-06-27] MEDS: *HR* Heparin 5,000 UNIT/ML VIAL SQ SCH (18:24)
[2020-06-27] MEDS: Latanoprost 2.5 ML BOTTLE LEFT EYE SCH (20:45)
[2020-06-28] MEDS: *HR* Heparin 5,000 UNIT/ML VIAL SQ SCH (05:51)
[2020-06-28 07:18] LABS: Hemoglobin 11.2 g/dL (11.5-15.4); Mean Corpuscular Hemoglobin 28.8 pg (28.0-33.3); Mean Platelet Volume 8.6 fL (9.4-12.4); Platelet Count 243 K/mcL (140-400); Red Blood Count 3.89 M/mcL (3.82-4.97); Red Cell Distribution Width 13.4 % (11.5-14.5); White Blood Count 4.2 K/mcL (4.3-11.1)
[2020-06-28 07:32] VITALS: BP 125/78
[2020-06-28 09:00] LABS: Calcium 9.1 mg/dL (8.6-10.3); Phosphorous 3.5 mg/dL (2.7-4.5); Potassium 4.3 mEq/L (3.5-5.1)
[2020-06-28 09:08] LABS: Magnesium 1.8 mg/dL (1.6-2.6)
[2020-06-28] MEDS: Isosorbide MONOnitrate (24 HR) 60 MG TAB.ER.24H PO SCH (09:58)
[2020-06-28] MEDS: CarBAMazepine 100 MG TABLET PO SCH (09:59)
[2020-06-28] MEDS: amLODIPine 5 MG TABLET PO SCH (09:59)
[2020-06-28] MEDS: Ranolazine 500 MG TAB.ER.12H PO SCH (09:59)
[2020-06-28] MEDS: Aspirin 81 MG TAB.CHEW PO SCH (09:59)
[2020-06-28] MEDS: Dorzolamide/Timolol OPTH 10 ML BOTTLE LEFT EYE SCH (10:00)
== END 2020-06-28 12:32 | disposition home health service (06) | DRG 552 ==
LOC: EMEROOARM 14:46 → 3BNU 14:46 → SUATTDRO 19:22 → 3BNU 20:55 → SUATTDRO 06-27 16:06
PROVIDERS: ADMIT Internal Medicine; ATTEND Family Medicine

== ENCOUNTER 2020-07-17 15:58 | Observation (INO) ==
[2020-07-17] MEDS ORDERED: Aspirin 81 MG TAB.CHEW PO ONE (16:32)
[2020-07-17] MEDS: Nitroglycerin 0.4 MG TAB.SUBL SL PRN ×3 (16:58→23:36)
[2020-07-17] MEDS ORDERED: *HR* FentaNYL (PF) 100 MCG/2 ML VIAL IVP ONE (17:37)
[2020-07-17 18:48] LABS: Basophils % 0.6 %; Eosinophils # 0.1 K/mcL (0.0-0.6); Eosinophils % 1.9 %; Hematocrit 35.5 % (35.3-44.9); Hemoglobin 11.4 g/dL (11.5-15.4); Immature Granulocytes % 0.2 % (0-4); Lymphocytes # 1.3 K/mcL (0.6-4.6); Lymphocytes % 26.7 %; Mean Corpuscular HGB Conc 32.1 g/dL (31.6-35.5); Mean Corpuscular Hemoglobin 28.6 pg (28.0-33.3); Mean Corpuscular Volume 89.2 fL (83.0-100.0); Mean Platelet Volume 8.1 fL (9.4-12.4); Monocytes # 0.4 K/mcL (0.0-1.3); Monocytes % 7.5 %; Platelet Count 209 K/mcL (140-400); Red Blood Count 3.98 M/mcL (3.82-4.97); Red Cell Distribution Width 13.7 % (11.5-14.5); Segmented Neutrophils % 63.1 %; White Blood Count 4.8 K/mcL (4.3-11.1)
[2020-07-17 18:57] LABS: Prothrombin Time 11.7 Seconds (9.4-12.1)
[2020-07-17 19:00] LABS: Activated Partial Thrombo Time 25.7 Seconds (26.0-36.0)
[2020-07-17 19:12] LABS: BUN/Creatinine Ratio 15 (6-26); Blood Urea Nitrogen 19 mg/dL (8-23); Calcium 8.6 mg/dL (8.6-10.3); Carbon Dioxide 23 mEq/L (23-29); Chloride 101 mEq/L (98-107); Glucose 104 mg/dL (70-105); Osmolality,Calculated 285 (280-300); Sodium 136 mEq/L (136-145); Troponin I < 0.03 ng/mL (< 0.04); eGFR For African Americans 50 (> 60); eGFR For Non-African Americans 41 (> 60)
[2020-07-17 19:53] LABS: Bilirubin,Urine Negative (Negative); Blood,Urine Negative (Negative); Clarity,Urine Clear (Clear); Color,Urine Light-Yellow (Yellow); Glucose,Urine (UA) Normal (Normal); Ketones,Urine Negative (Negative); Leukocyte Esterase,Urine Trace (Negative); Mucus,Urine Few per lpf (None-Few); Nitrite,Urine Negative (Negative); PH,Urine 6.5 pH Units (5.0-8.0); Protein,Urine Trace mg/dL (Neg-Trace); RBC,Urine 0-3 per hpf (0-3); Specific Gravity,Urine 1.017 (1.010-1.025); Squamous Epithelial Cell,Urine Few per hpf (None-Few); Urobilinogen,Urine Normal (Normal); WBC,Urine 0-3 per hpf (0-3)
[2020-07-17] MEDS ORDERED: Sennosides/Docusate Sodium TABLET PO PRN (20:34)
[2020-07-17] MEDS ORDERED: Ondansetron 4 MG/2 ML VIAL IVP PRN (20:38)
[2020-07-18] MEDS ORDERED: Morphine Sulfate 2 MG/ML SYRINGE IVP ONE (00:04)
[2020-07-18] MEDS: Ranolazine 500 MG TAB.ER.12H PO SCH ×3 (00:26→20:32)
[2020-07-18] MEDS: Dorzolamide/Timolol 1 DROP LEFT EYE SCH ×3 (01:04→22:12)
[2020-07-18 01:25] LABS: Basophils % 0.6 %; Eosinophils # 0.1 K/mcL (0.0-0.6); Eosinophils % 1.5 %; Hematocrit 34.9 % (35.3-44.9); Hemoglobin 11.1 g/dL (11.5-15.4); Immature Granulocytes % 0.2 % (0-4); Lymphocytes # 1.4 K/mcL (0.6-4.6); Lymphocytes % 26.2 %; Mean Corpuscular HGB Conc 31.8 g/dL (31.6-35.5); Mean Corpuscular Hemoglobin 28.2 pg (28.0-33.3); Mean Corpuscular Volume 88.8 fL (83.0-100.0); Mean Platelet Volume 8.4 fL (9.4-12.4); Monocytes # 0.4 K/mcL (0.0-1.3); Monocytes % 7.7 %; Neutrophils # 3.3 K/mcL (1.6-8.9); Platelet Count 215 K/mcL (140-400); Red Blood Count 3.93 M/mcL (3.82-4.97); Red Cell Distribution Width 13.7 % (11.5-14.5); Segmented Neutrophils % 63.8 %; White Blood Count 5.2 K/mcL (4.3-11.1)
[2020-07-18 01:42] LABS: Albumin 4.1 g/dL (3.5-5.7); Albumin/Globulin Ratio 1.7 (1.1-2.2); Bilirubin,Total 0.3 mg/dL (0.3-1.0); Calcium 8.9 mg/dL (8.6-10.3); Globulin 2.4 g/dL (2.4-3.5); Total Protein 6.5 g/dL (6.4-8.9)
[2020-07-18 01:43] LABS: Albumin 4.2 g/dL (3.5-5.7); Albumin/Globulin Ratio 1.8 (1.1-2.2); Bilirubin,Direct 0.1 mg/dL (0.0-0.2); Bilirubin,Indirect 0.2 mg/dL (0.0-1.0); Bilirubin,Total 0.3 mg/dL (0.3-1.0); Globulin 2.4 g/dL (2.4-3.5); Total Protein 6.6 g/dL (6.4-8.9)
[2020-07-18] MEDS: *HR* Heparin 5,000 UNIT/ML VIAL SQ SCH ×2 (06:32→17:53)
[2020-07-18] MEDS ORDERED: amLODIPine 5 MG TABLET PO SCH (09:00)
[2020-07-18] MEDS: Aspirin 81 MG TAB.CHEW PO SCH (09:25)
[2020-07-18] MEDS: CarBAMazepine 100 MG TABLET PO SCH (09:25)
[2020-07-18] MEDS: Isosorbide MONOnitrate (24 HR) 60 MG TAB.ER.24H PO SCH (09:44)
[2020-07-18] MEDS ORDERED: amLODIPine 5 MG TABLET PO ONE (12:25)
[2020-07-18] MEDS ORDERED: Acetaminophen 325 MG TABLET PO ONE (15:09)
[2020-07-18] MEDS ORDERED: *HR* OxyCODONE/APAP 5/325 TABLET PO PRN (22:38)
[2020-07-19] MEDS: *HR* Heparin 5,000 UNIT/ML VIAL SQ SCH (06:10)
[2020-07-19 08:00] VITALS: BP 152/75
[2020-07-19] MEDS ORDERED: amLODIPine 5 MG TABLET PO SCH (09:00)
[2020-07-19] MEDS: Dorzolamide/Timolol 1 DROP LEFT EYE SCH (09:07)
[2020-07-19] MEDS: Aspirin 81 MG TAB.CHEW PO SCH (09:07)
[2020-07-19] MEDS: Ranolazine 500 MG TAB.ER.12H PO SCH (09:07)
[2020-07-19] MEDS: Isosorbide MONOnitrate (24 HR) 60 MG TAB.ER.24H PO SCH (09:07)
[2020-07-19] MEDS: CarBAMazepine 100 MG TABLET PO SCH (09:08)
== END 2020-07-19 10:42 | disposition home or self-care (01) ==
LOC: EMEROOARM 15:58 → 3ANU 15:58 → SUATTDRO 20:06 → 3ANU 21:05
PROVIDERS: ADMIT Family Medicine; ATTEND Internal Medicine

== ENCOUNTER 2021-05-29 16:00 | Observation (INO) ==
[2021-05-29 16:56] LABS: Basophils % 0.6 %; Eosinophils # 0.1 K/mcL (0.0-0.6); Eosinophils % 1.9 %; Hematocrit 34.2 % (35.3-44.9); Hemoglobin 10.9 g/dL (11.5-15.4); Immature Granulocytes % 0.2 % (0-4); Lymphocytes # 1.2 K/mcL (0.6-4.6); Mean Corpuscular HGB Conc 31.9 g/dL (31.6-35.5); Mean Corpuscular Hemoglobin 28.5 pg (28.0-33.3); Mean Corpuscular Volume 89.3 fL (83.0-100.0); Mean Platelet Volume 8.4 fL (9.4-12.4); Monocytes # 0.4 K/mcL (0.0-1.3); Monocytes % 9.3 %; Neutrophils # 2.9 K/mcL (1.6-8.9); Platelet Count 228 K/mcL (140-400); Red Blood Count 3.83 M/mcL (3.82-4.97); Red Cell Distribution Width 12.7 % (11.5-14.5); White Blood Count 4.6 K/mcL (4.3-11.1)
[2021-05-29 16:59] LABS: Prothrombin Time 11.1 Seconds (9.4-12.1)
[2021-05-29 17:02] LABS: Activated Partial Thrombo Time 26.9 Seconds (26.0-36.0)
[2021-05-29 17:10] LABS: BUN/Creatinine Ratio 14 (6-26); Blood Urea Nitrogen 21 mg/dL (8-23); Calcium 8.4 mg/dL (8.6-10.3); Carbon Dioxide 20 mEq/L (23-29); Chloride 103 mEq/L (98-107); Glucose 79 mg/dL (70-105); Osmolality,Calculated 278 (280-300); Potassium 4.2 mEq/L (3.5-5.1); Sodium 133 mEq/L (136-145); Troponin I < 0.03 ng/mL (< 0.04); eGFR For African Americans 42 (> 60); eGFR For Non-African Americans 34 (> 60)
[2021-05-29] MEDS ORDERED: Naloxone 0.4 MG/ML INJ IVP PRN (18:09)
[2021-05-29] MEDS ORDERED: Melatonin 3 MG TABLET PO PRN (18:09)
[2021-05-29] MEDS ORDERED: Ondansetron ODT 4 MG TAB.RAPDIS SL PRN (18:09)
[2021-05-29] MEDS ORDERED: *HR* OxyCODONE/APAP 5/325 TABLET PO PRN (18:18)
[2021-05-29] MEDS ORDERED: Nitroglycerin 0.4 MG TAB.SUBL SL PRN (18:47)
[2021-05-29] MEDS ORDERED: *HR* Labetalol 20 MG/4 ML SYRINGE IVP ONE (21:49)
[2021-05-29] MEDS: Acetaminophen 325 MG TABLET PO PRN (22:00)
[2021-05-30 05:25] LABS: Basophils % 0.7 %; Eosinophils # 0.1 K/mcL (0.0-0.6); Eosinophils % 2.1 %; Hemoglobin 10.8 g/dL (11.5-15.4); Immature Granulocytes % 0.2 % (0-4); Lymphocytes # 1.2 K/mcL (0.6-4.6); Lymphocytes % 29.4 %; Mean Corpuscular HGB Conc 31.8 g/dL (31.6-35.5); Mean Corpuscular Hemoglobin 28.6 pg (28.0-33.3); Mean Corpuscular Volume 89.9 fL (83.0-100.0); Mean Platelet Volume 8.2 fL (9.4-12.4); Monocytes # 0.3 K/mcL (0.0-1.3); Monocytes % 7.2 %; Neutrophils # 2.5 K/mcL (1.6-8.9); Platelet Count 195 K/mcL (140-400); Red Blood Count 3.78 M/mcL (3.82-4.97); Red Cell Distribution Width 12.7 % (11.5-14.5); Segmented Neutrophils % 60.4 %; White Blood Count 4.2 K/mcL (4.3-11.1)
[2021-05-30 05:45] LABS: Calcium 8.9 mg/dL (8.6-10.3); Potassium 3.8 mEq/L (3.5-5.1)
[2021-05-30] MEDS: CarBAMazepine 100 MG TABLET PO SCH (09:13)
[2021-05-30] MEDS: Ranolazine 500 MG TAB.ER.12H PO SCH ×2 (09:13→19:59)
[2021-05-30] MEDS: Isosorbide MONOnitrate (24 HR) 60 MG TAB.ER.24H PO SCH (09:13)
[2021-05-30] MEDS: Sennosides/Docusate Sodium TABLET PO SCH ×2 (09:13→20:00)
[2021-05-30] MEDS: Aspirin 81 MG TAB.CHEW PO SCH (09:13)
[2021-05-30] MEDS: amLODIPine 5 MG TABLET PO SCH (09:14)
[2021-05-30] MEDS ORDERED: Perflutren Lipid Microsphere 1.3 ML in 0.9 % Sodium Chloride 8.7 ML IVP PRN (10:12)
[2021-05-30] MEDS ORDERED: *HR* OxyCODONE/APAP 5/325 TABLET PO SCH (21:00)
[2021-05-30] MEDS: Acetaminophen 325 MG TABLET PO PRN (21:42)
[2021-05-31] MEDS ORDERED: Regadenoson 0.4 MG/5 ML SYRINGE IVP ONE (07:15)
[2021-05-31] MEDS: amLODIPine 5 MG TABLET PO SCH (09:54)
[2021-05-31] MEDS: Sennosides/Docusate Sodium TABLET PO SCH (10:36)
[2021-05-31] MEDS: Ranolazine 500 MG TAB.ER.12H PO SCH (10:36)
[2021-05-31] MEDS: Aspirin 81 MG TAB.CHEW PO SCH (10:36)
[2021-05-31] MEDS: Isosorbide MONOnitrate (24 HR) 60 MG TAB.ER.24H PO SCH (10:36)
[2021-05-31] MEDS: CarBAMazepine 100 MG TABLET PO SCH (10:36)
[2021-05-31 14:55] VITALS: BP 113/85; PULSE 94; TEMP 98.3; O2SAT 94
== END 2021-05-31 17:47 | disposition other institution (70) ==
LOC: 3BNU 16:00 → EMEROOARM 16:00 → 3BNU 20:33
PROVIDERS: ADMIT Internal Medicine; ATTEND Internal Medicine